=== PATIENT | female | born 1990 | race Caucasian/White ===

== ENCOUNTER 2025-06-04 16:41 | Observation (INO) | payer BC, SELFPAY ==
--- NOTE | ~2025-06-04 | CT_ITS ---
CLINICAL INDICATION: Left flank pain COMPARISON: None. TECHNIQUE: Multiple contiguous axial images of the abdomen and pelvis were performed without the admi nistration of intravenous contrast The dose-length product (DLP) was 191.17 mGy-cm. Automated exposure control and iterative reconstruction technique were employed. FINDINGS/OBSERVATIONS: Visualized lower thorax: The bilateral lung bases are clear. The heart is of normal size, without pericardial effusion. Small hiatal hernia is present. Liver: The liver demonstrates homogeneous attenuation and is not enlarged. Gallbladder and biliary system: The gallbladder is surgically absent. Pancreas: Limited evaluation of the pancreas secondary to the lack of intravenous contrast. Spleen: The spleen demonstrates homogeneous attenuation and is not enlarged. Kidneys: Multiple 2 and 3 mm nonobstructing calculi are present within the right kidney. The remainder of the right kidney and proximal ureter are unremarkable. Atrophy and significant hydronephrosis is present within the left kidney. Proximal hydroureter is noted secondary to an 8 mm calculus within the proximal left ureter. Bulky calcifications are identified within primarily the lower pole of the atrophic left kidney. Adrenal glands: Unremarkable. Gastrointestinal tract: Fecal stasis within the cecum and rectum Appendix: Surgically absent. Vasculature: Unremarkable. Lymph nodes: Limited evaluation without intravenous contrast. Pelvic structures: The bladder is decompressed, limiting its evaluation. The uterus is anteverted and anteflexed, and otherwise unremarkable. Body wall and musculoskeletal: No significant degenerative disease within the lower thoracic or lumbosacral spine. IMPRESSION: Left-sided hydroureteronephrosis secondary to an 8 mm calculus in the proximal left ureter. The left kidney is atrophic when compared to the right. Fecal stasis within the cecum and rectum. Reviewed, dictated and finalized at location A.
--- NOTE | ~2025-06-04 | XR_ITS ---
EXAMINATION: XR retrograde pyelo w/stent LT DATE: 06/05/2025 11:11 INDICATION: Renal stone TECHNIQUE: 4 fluoroscopic images of the abdomen and pelvis were obtained during procedure performed emmanuel Evans. Radiologist was not present for the imaging or procedure. The amount of fluoroscopy time u sed during this procedure was 0.2 minutes. Total DAP was 0.129 mGym^2. COMPARISON: CT dated 06/04/2025 FINDINGS: Again seen is a 6 mm stone in the proximal left ureter which projects over the left transverse proces s of L3. Subsequent images demonstrate retrograde contrast injection into the left ureter and renal c ollecting system. The stone is no longer visualized and has either been extracted cores obscured by t he contrast. Placement of a left intraureteral stent with loops formed at the left renal pelvis and i n the bladder. Phlebolith in the left hemipelvis. IMPRESSION: 1. Proximal left ureteral stone which is not seen on the final images and has either been extracted o r reflux into the contrast opacified left renal collecting system. See procedure note for further det ail. 2. Placement of a left intraureteral stent which is in expected position. Reviewed, dictated and finalized at location A. IMPRESSION: 1. Proximal left ureteral stone which is not seen on the final images and has e ither been extracted or reflux into the contrast opacified left renal collectin g system. See procedure note for further detail. 2. Placement of a left intraureteral stent which is in expected position.
[2025-06-04 17:04] VITALS: BP 114/67; PULSE 99; RESP 18; TEMP 37.5; O2SAT 97
[2025-06-04 17:12] LABS: BEDSIDEPREGUCG Negative (Negative)
--- NOTE | 2025-06-04 17:14 | ED.GENADULT ---
HPI - General Adult General Chief complaint: Back Pain/Injury Stated complaint: Left flank pain Time Seen by Provider: 06/04/25 17:01 History of Present Illness HPI narrative: 34-year-old female presents to the emergency department for evaluation for left flank pain. Patient describes left flank pain that worsened a few hours prior to arrival. Patient does have associated nausea vomiting. Patient denies any prior history of kidney stone. Patient denies any current abdominal pain. Patient declined any medications for pain control or for nausea control. Related Data Allergies Allergy/AdvReac Type Severity Reaction Status Date / Time No Known Allergies Allergy Verified 06/04/25 17:32 Review of Systems Review of Systems: All systems reviewed & are unremarkable except as noted in HPI and below Exam Narrative: APPEARANCE: Well appearing, no pain, no distress, well-nourished. HEAD: normocephalic, atraumatic. EYES: PERRLA/EOMI, conjunctivae clear. NOSE: Normal no drainage EARS:TMS clear with good light reflex. THROAT: Pharynx clear, no exudate. NECK: Supple. No adenopathy, no masses. RESPIRATORY: Airway patent, respirations nonlabored. Clear to auscultation bilaterally, no rales, rhonchi, wheezing. CARDIOVASCULAR: Regular rate and rhythm without murmurs rubs or gallops. ABDOMINAL: Left CVA tenderness to palpation with no suprapubic tenderness to palpation MUSCULOSKELETAL: Moves all extremities. Strength/ROM intact, No edema, No calf tenderness. NEURO: Alert. Cranial nerves II through XII intact. Good gait. Good coordination SKIN: Warm, dry. Normal Color Course Vital Signs Vital signs: Vital Signs Temperature 99.5 F 06/04/25 17:04 Pulse Rate 99 06/04/25 17:04 Respiratory Rate 18 06/04/25 17:04 Blood Pressure 114/67 06/04/25 17:04 Pulse Oximetry 97 06/04/25 17:04 Oxygen Delivery Room Air 06/04/25 17:04 Temperature 98.4 F 06/04/25 21:07 Pulse Rate 89 06/04/25 21:07 Respiratory Rate 16 06/04/25 21:07 Blood Pressure 115/69 06/04/25 21:07 Pulse Oximetry 95 06/04/25 21:07 Oxygen Delivery Room Air 06/04/25 17:04 Medical Decision Making [facility] Narrative Medical decision making narrative: 34-year-old female presenting to the emergency department for evaluation for left flank. Patient afebrile but does have a leukocytosis of 12.9 hemoglobin of 12.5. No acute abnormalities on her CMP with a creatinine of 1.08 with no known baseline. Urine is leukocyte esterase positive with high white blood cells and +2 bacteria, urine culture was ordered, patient was treated with 1 g of IV Rocephin in the emergency department. CT scan does show a 8 mm ureteral calculi in the proximal left ureter with an atrophic kidney on that side. Patient did require multiple doses of IV Dilaudid for pain control. Patient was initially reluctant to stay but ultimately did stay for pain control and additional IV antibiotics. Urology does anticipate stent placement in the morning. Patient will be made NPO at midnight. Case was discussed with the hospitalist. Differential Diagnosis Differential Diagnosis: Urinary tract infection, infected stone, ureteral calculi, gastritis, diverticulitis, ovarian cyst Vital Signs Vital Signs: Vital Signs Temperature 99.5 F 06/04/25 17:04 Pulse Rate 99 06/04/25 17:04 Respiratory Rate 18 06/04/25 17:04 Blood Pressure 114/67 06/04/25 17:04 Pulse Oximetry 97 06/04/25 17:04 Oxygen Delivery Room Air 06/04/25 17:04 Temperature 98.4 F 06/04/25 21:07 Pulse Rate 89 06/04/25 21:07 Respiratory Rate 16 06/04/25 21:07 Blood Pressure 115/69 06/04/25 21:07 Pulse Oximetry 95 06/04/25 21:07 Oxygen Delivery Room Air 06/04/25 17:04 Lab Data Lab results reviewed: Yes I reviewed the patient's lab results. 06/04/25 17:23 06/04/25 17:23 Labs: Lab Results 06/04/25 06/04/25 06/04/25 Range/Units 17:05 17:10 17:23 WBC 12.9 H (4.5-10.0) K/mm3 RBC 4.41 (4.2-5.4) M/mm3 Hgb 12.5 (12.0-15.0) g/dL Hct 39.8 (37.0-47.0) % MCV 90.2 (80-100) fl MCH 28.3 (26-34) pg MCHC 31.4 L (32-36) g/dl RDW 13.2 (11.5-14.5) % Plt Count 220 (150-375) k/mm3 MPV 8.6 (7.4-10.4) fl Immature Gran % (Auto) Not Reportable Neut % (Auto) Not Reportable Lymph % (Auto) Not Reportable [place] % (Auto) Not Reportable Eos % (Auto) Not Reportable Baso % (Auto) Not Reportable Lymph # (Auto) Not Reportable [place] # (Auto) Not Reportable Eos # (Auto) Not Reportable Baso # (Auto) Not Reportable Abs Immat Gran (auto) Not Reportable Absolute Neuts (auto) Not Reportable Absolute Nucleated RBC Not Reportable Total Counted 100 Neutrophils % (Manual) 80 H (46-73) % Band Neutrophils % 9 H (0-6) % Lymphocytes % (Manual) 6.0 L (18-44) % Monocytes % (Manual) 4 (3-9) % Eosinophils % (Manual) 1 (0-4) % Nucleated RBC % Not Reportable Abs Neuts (Manual) 11.48 H (1.3-6.7) K/mm3 Abs Lymphs (Manual) 0.77 L (1.1-4.5) K/mm3 Abs Monocytes (Manual) 0.51 (0.1-0.90) K/mm3 Absolute Eos (Manual) 0.12 (0.02-0.50) K/mm3 Platelet Estimate Adequate (Adequate) Hypochromasia 1+ Schistocytes None seen Sodium 137 (137-145) mmol/L Potassium 3.9 (3.4-5.0) mmol/L Chloride 102 (98-107) mmol/L Carbon Dioxide 26 (22-30) mmol/L Anion Gap 9 (4-12) mmol/L BUN 14 (7-17) mg/dL Creatinine 1.08 H (0.7-1.0) mg/dL Estim Creat Clear Calc 59 ml/min Estimated GFR 59 (59 - ) Glucose 104 (65-110) mg/dL Calcium 9.3 (8.4-10.2) mg/dL Total Bilirubin 1.2 (0.2-1.3) mg/dL AST 39 H (14-36) U/L ALT 62 H (6-35) U/L Alkaline Phosphatase 62 (38-126) U/L Total Protein 7.5 (6.3-8.2) g/dL Albumin 4.2 (3.5-5.1) g/dL Urine Color Dark yellow (Yellow) Urine Appearance Clear (Clear) Urine pH 6.5 (5.0-9.0) Ur Specific [place] 1.037 H (1.001-1.035) Urine Protein 1+ H (Negative) mg/dL Urine Glucose (UA) Negative (Negative) mg/dL Urine Ketones Trace H (Negative) mg/dL Ur Blood (Man) Negative (Negative) Urine Nitrate Negative (Negative) Urine Bilirubin Negative (Negative) Urine Urobilinogen 1.0 (<2.0) mg/dL Leukocyte Esterase Rfl 2+ H (Negative) LYRIC/UL Urine RBC 0-2 (0-2) /hpf Urine WBC 21-50 H (0-3) /hpf Ur Squamous Epith Cells Moderate (Few) /hpf Urine Bacteria 2+ H /hpf Urine Casts 0-2 POC Urine HCG, Qual Negative (Negative) Imaging Data Radiologist's impression: Impressions Abdomen/Pelvis CT 06/04/25 19:14 IMPRESSION: Left-sided hydroureteronephrosis secondary to an 8 mm calculus in the proximal left ureter. The left kidney is atrophic when compared to the right. Fecal stasis within the cecum and rectum. Discharge Plan Discharge Clinical Impression: Calculus, ureteral, Abnormal urinalysis Patient Disposition: Still a Patient Condition: Stable
[2025-06-04 17:15] LABS: Add Urine Microscopic? YES; Appearance Urine Clear (Clear); Glucose Urine UA Negative (Negative); Leukocyte Esterase Ur 2+ LEU/UL (Negative); Nitrate Urine Negative (Negative); Non Pathogenic Casts 0-2; Specific Grav Ur 1.037 (1.001-1.035)
[2025-06-04 17:22] VITALS: BP 102/60; PULSE 96; RESP 18; O2SAT 99
[2025-06-04 17:30] LABS: Hematocrit 39.8 % (37.0-47.0); Hemoglobin 12.5 g/dL (12.0-15.0); Mean Corpuscular HGB Conc 31.4 g/dl (32-36); Mean Corpuscular Hemoglobin 28.3 pg (26-34); Mean Corpuscular Volume 90.2 fl (80-100); Platelet Count Result 220 k/mm3 (150-375); Red Blood Count 4.41 M/mm3 (4.2-5.4); White Blood Count 12.9 K/mm3 (4.5-10.0)
[2025-06-04] MEDS: cefTRIAXone 1 GM in SODIUM CHLORIDE 0.9% IV 50 ML 100 ML IVPB (17:36)
[2025-06-04] MEDS: ONDANSETRON INJ 4 MG/2 ML VIAL IV PUSH (17:36)
[2025-06-04] MEDS: HYDROmorphone HCL INJ (*CRX) 2 MG/ML VIAL 0.5 MG IV PUSH ×3 (17:37→22:56)
[2025-06-04 17:40] LABS: Alanine Aminotransferase 62 U/L (6-35); Albumin Level 4.2 g/dL (3.5-5.1); Alkaline Phosphatase 62 U/L (38-126); Anion Gap 9 mmol/L (4-12); Aspartate Amino Transferase 39 U/L (14-36); Bilirubin,Total 1.2 mg/dL (0.2-1.3); Blood Urea Nitrogen 14 mg/dL (7-17); Calcium 9.3 mg/dL (8.4-10.2); Carbon Dioxide 26 mmol/L (22-30); Chloride 102 mmol/L (98-107); Estimated CRCL calculation 59 ml/min; Estimated Glomerular Filt Rate 59; Glucose 104 mg/dL (65-110); Potassium 3.9 mmol/L (3.4-5.0); Sodium 137 mmol/L (137-145); Total Protein 7.5 g/dL (6.3-8.2)
[2025-06-04 18:13] LABS: Band Neutrophils Percent 9 % (0-6); Eosinophils Absolute Manual 0.12 K/mm3 (0.02-0.50); Eosinophils Percent Manual 1 % (0-4); Lymphocytes Absolute Manual 0.77 K/mm3 (1.1-4.5); Lymphocytes Percent Manual 6.0 % (18-44); Monocytes Absolute Manual 0.51 K/mm3 (0.1-0.90); Monocytes Percent Manual 4 % (3-9); Neutrophils Absolute Manual 11.48 K/mm3 (1.3-6.7); Neutrophils Percent Manual 80 % (46-73); Schistocytes None Seen; Total Cells Counted 100
[2025-06-04 18:14] LABS: Hypochromasia 1+
[2025-06-04 18:15] VITALS: BP 104/62; PULSE 91; RESP 16; O2SAT 98
[2025-06-04] MEDS: LACTATED RINGERS 1,000 ML 125 ML IV CONT (20:14)
--- OUTSIDE RECORDS SUMMARY | 2025-06-04 20:29 | XMS_ITS | Encounter Summary ---
Author Organization [facility] work Address [address] [place] [address] Care Team Providers Care Marketing Community Liaison Name Role Phone Ernestine Salazar NP Primary Care Provider [phone] Encounter Details Date Type Department Care Team ([facility] st Contact Info) Description 03/07/2020 Telephone Outpatient [facility] [address] [facility] [place] [facility] [place] [address] Kodi Kaur [facility] [address] [place] [address] Social History Tobacco Use Types Packs/Day Years Used Date Smoking Tobacco: Never Smokeless Tobacco: Never Alcohol Use Standard Drinks/Week Comments No 0 (1 standard drink = 0.6 oz pur e alcohol) Comments No Sex and Gender Information Value Date Recorded Sex Assigned at Female 09/30/2020 8:29 AM EST Legal Sex Female 3:18 AM EDT Gender Identity Female 09/30/2020 8:29 AM EST Sexual Orientation Not on file COVID-19 Exposure Response Date Recorded In the last month, have you been in contact with someone who was confirmed or suspected to have Coronavirus / COVID-19? No / Unsure 03/01/2020 2:41 PM EDT documented as of this encounter Plan of Treatment Not on file documented as of this encounter Visit Diagnoses Not on filedocumented in this encounter Care Teams Marketing Community Liaison Relationship Specialty Start Date End Date Ernestine Salazar NP [address] [facility], [place] [id number] PCP - General Nurse Practitioner 07/16/18 documented as of this encounter
--- OUTSIDE RECORDS SUMMARY | 2025-06-04 20:29 | XMS_ITS | Encounter Summary ---
Author Organization [facility] work Address [address] [place] [address] Care Team Providers Care Potato Loader Name Role Phone Ernestine Salazar INDUSTRIAL HEALTH ENGINEER Primary Care Provider [phone] Reason for Visit * Reason Comments Medication Refill Encounter Details Date Type Department Care Team ([facility] st Contact Info) Description 04/07/2020 Refill Outpatient [facility] [address] [place] [address] Stephanie Jalloh, [facility] [address] [facility] [place] [address] Medication Refill Social History Tobacco Use Types Packs/Day Years [...] have Coronavirus / COVID-19? No / Unsure 03/23/2020 1:39 PM EDT documented as of this encounter Plan of Treatment Not on file documented as of this encounter Visit Diagnoses Diagnosis FRANCISCO JAVIER (generalized anxiety disorder) Generalized anxiety disorder documented in this encounter Care Teams Potato Loader Relationship Specialty Start Date End Date Ernestine Salazar NP [address] [place] [address] PCP - General Nurse Practitioner 07/16/18 documented as of this encounter
--- OUTSIDE RECORDS SUMMARY | 2025-06-04 20:29 | XMS_ITS | Encounter Summary ---
Author Organization [facility] work Address [address] [place] [address] Care Team Providers Care Line Patroller Name Role Phone Ernestine Salazar NP Primary Care Provider [phone] Reason for Visit * Reason Comments Medication Refill Encounter Details Date Type Department Care Team ([facility] st Contact Info) Description 2020 Refill Outpatient [facility] [address] [place] [address] Stephanie Jalloh, [facility] [address] [place] [address] Medication Refill Social History Tobacco Use Types Packs/Day Years Used Date Smoking Tobacco: Former Cigarettes 0.5 1 1 10/2018 - 08/2020 Smokeless Tobacco: Never Alcohol Use Standard Drinks/Week Comments Not Currently 0 (1 standard drink = 0.6 oz [...] have Coronavirus / COVID-19? No / Unsure 10/17/2020 11:41 AM EST documented as of this encounter Plan of Treatment Not on file documented as of this encounter Visit Diagnoses Diagnosis Insomnia, unspecified type documented in this encounter Care Teams Line Patroller Relationship Specialty Start Date End Date Ernestine Salazar NP [address] [place] [address] PCP - General Nurse Practitioner 07/16/18 documented as of this encounter
--- OUTSIDE RECORDS SUMMARY | 2025-06-04 20:29 | XMS_ITS | Encounter Summary ---
Author Organization [facility] work Address [address] [place] [address] Care Team Providers Care Product Picker Name Role Phone Ernestine Salazar NP Primary Care Provider Encounter Details Date Type Department Care Team ([facility] st Contact Info) Description 03/01/2020 Telephone Outpatient [facility] [address] [place] [address] Stephanie Jalloh, [facility] [address] [place] [id number] Social History Tobacco Use Types Packs/Day Years [...] on filedocumented in this encounter Care Teams Product Picker Relationship Specialty Start Date End Date Ernestine Salazar NP [address] [facility] [place] [id number] PCP - General Nurse Practitioner 07/16/18 documented as of this encounter
--- OUTSIDE RECORDS SUMMARY | 2025-06-04 20:29 | XMS_ITS | Patient Health Record ---
Author Organization [facility] Address [address] [place] [address] Care Team Providers Care University Lecturer Name Role Phone Yves Abbasi Unavailable [phone] Reason For Referral No Information Social History Social History Sexual History: Social Info Question Answer Notes Sexual History Had sex in the past 12 months (vaginal, oral, or anal)? Yes Drugs/Alcohol: Social Info Question Answer Notes Drugs Have you used drugs other than those for medical reasons in the past 12 months? No Alcohol Screen Did you have a drink containing alcohol in the past year? Yes Points 0 Interpretation Negative Tobacco Use: Social Info Question Answer Notes Tobacco Use/Smoking Are you a former smoker Tobacco use other than smoking: Are you an other tobac co user? No Plan Of Treatment No Information
--- OUTSIDE RECORDS SUMMARY | 2025-06-04 20:29 | XMS_ITS | Encounter Summary ---
Author Organization [facility] work Address [address] [place] [address] Care Team Providers Care Test Pilot Name Role Phone Ernestine Salazar REFERENCE INVESTIGATOR Primary Care Provider [phone] Encounter Details Date Type Department Care Team (Late st Contact Info) Description 08/29/2018 Orders Only [facility] [address] [place] [phone] Referral, Self No Address on File Encounter for employment-related drug testing (Primary Dx) Social History Tobacco Use Types Packs/Day Years [...] AM EST Sexual Orientation Not on file documented as of this encounter Plan of Treatment Not on file documented as of this encounter Results * UDP 5 eScreen (08/29/2018 12:50 PM EDT) UDP 5 eScreen Complete 08/29/2018 8:03 PM EDT [facility] Urine specimen (specimen) 08/29/2018 12:50 PM EDT 08/29/2018 6:51 PM EDT us Self Referral URINE ORDERABLES Final Result [facility] [address] [place], [place] [address] [phone] documented in this encounter Visit Diagnoses Diagnosis Encounter for employment-related drug testing- Primary documented in this encounter Care Teams Test Pilot Relationship Specialty Start Date End Date Ernestine Salazar NP [address] [place] [address] PCP - General Nurse Practitioner 07/16/18 documented as of this encounter
--- OUTSIDE RECORDS SUMMARY | 2025-06-04 20:29 | XMS_ITS | Encounter Summary ---
Author Organization [facility] work Address [address] [facility] [place] [address] Care Team Providers Care Engagement Quality Consultant Name Role Phone Ernestine Salazar OCEAN FORWARDER Primary Care Provider [phone] Reason for Visit * Reason Comments Medication Refill Encounter Details Date Type Department Care Team ([facility] st Contact Info) Description 12/13/2020 Refill Outpatient [facility] [place] [address] [place] [address] Stephanie Jalloh, [facility] [address] [place] [address] Medication Refill Social History [...] have Coronavirus / COVID-19? No / Unsure 12/09/2020 5:01 PM EST documented as of this encounter Plan of Treatment Not on file documented as of this encounter Visit Diagnoses Diagnosis MDD (major depressive disorder), recurrent severe, without psychosis (HCC) FRANCISCO JAVIER (generalized anxiety disorder) Generalized anxiety disorder Mixed obsessional thoughts and acts documented in this encounter Care Teams Engagement Quality Consultant Relationship Specialty Start Date End Date Ernestine Salazar NP [address] [place] [address] PCP - General Nurse Practitioner 07/16/18 documented as of this encounter
--- OUTSIDE RECORDS SUMMARY | 2025-06-04 20:29 | XMS_ITS | Encounter Summary ---
Author Organization [facility] work Address [address] [place] [address] Care Team Providers Care Repair Weaver Name Role Phone Ernestine Salazar ACTIVITY THERAPY TEACHER Primary Care Provider [phone] Reason for Visit * Reason Comments Medication Refill Encounter Details Date Type Department Care Team (Late st Contact Info) Description 11/19/2020 Refill Outpatient [facility] [place] [address] [place] [address] Stephanie Jalloh, [facility] [address] [facility] [phone] Medication Refill Social History Tobacco Use Types [...] type documented in this encounter Care Teams Repair Weaver Relationship Specialty Start Date End Date Ernestine Salazar NP [address] [facility] [place] [address] PCP - General Nurse Practitioner 07/16/18 documented as of this encounter
--- OUTSIDE RECORDS SUMMARY | 2025-06-04 20:29 | XMS_ITS | Clinical Summary ---
Author Organization [facility] Address [address] [place] [address] Care Team Providers Care Rotor Coil Taper Name Role Phone Maggie Simmons Primary Care Provider [phone] Source Comments PLEASE NOTE, if this patient is a minor, it may be UNLAWFUL to discuss sensitive information that is contained in these records (such as FAMILY PLANNING, MENTAL HEALTH or SUBSTANCE ABUSE) with the minor patient's parent or other person without the patient's specific authorization.[facility] Allergies No known active allergies Medications clonazePAM (KLONOPIN) 0.5 mg tablet Take 0.5 mg by mouth 2 (two) times daily 12/15/2018 Active traZODone (DESYREL) 100 mg tablet Take 100 mg by mouth nightly at bedtime 11/18/2018 Active Active Problems Problem Noted Date Diagnosed Date Generalized anxiety disorder 07/09/2018 Severe recurrent major depre ssion without psychotic features (CMS & HHS-HCC) 07/09/2018 Family History Medical History Relation Name Comments ADD / ADHD Brother Anxiety disorder Brother Depression Brother Anxiety disorder Father Arthritis Father Depression Father Heart failure Father Psoriasis Father Anxiety disorder Mother Cancer Mother Depression Mother Drug Abuse Mother OCD Mother Anxiety disorder Sister Asthma Sister Depression Sister Psoriasis Sister Anxiety disorder Son Relation Name Status Comments Brother Father Mother Sister Son Social History Tobacco Use Types Packs/Day Years Used Date Smoking Tobacco: Former Cigarettes 0.5 4 0 05/25/2011 - 06/09/2015 Smokeless Tobacco: Never Tobacco Cessation:Counseling Given: No Alcohol Use Standard Drinks/Week Comments No 0 (1 standard drink = 0.6 oz pur e alcohol) Social Connections Answer Date Recorded Social Connections and Isolation 0 06/22/2019 Financial Resource Strain Answer Date R ecorded Financial Resource Strain 0 2018 Stress Answer Date Recorded Stress 0 06/22/2019 Physical Activity Answer Date Recorded Physical Activity 0 06/22/2019 Food Insecurity Answer Date Recorded Food 0 06/22/2019 Transportation Needs Answer Date Record ed Transportation 0 06/22/2019 Housing Stability Answer Date Recorded Housing 0 06/22/2019 Safety and Environment Answer Date Damon rded Safety 0 06/22/2019 Utilities Answer Date Recorded Utilities 0 06/22/2019 Employment Answer Date Recorded Employment 0 06/22/2019 Comments No Sex and Gender Information Value Date Recorded Sex Assigned at Female 07/08/2018 1:06 PM PDT Legal Sex Female 10:36 AM PDT Gender Identity Female 07/08/2018 12:44 PM PDT Sexual Orientation Straight 07/08/2018 12 :44 PM PDT Last Filed Vital Signs Vital Sign Reading Time Taken Comments Blood Pressure 116/72 01/09/2019 3:26 PM EDT Pulse 94 01/09/2019 3:26 PM EDT Temperature 36.8 C (98.3 F) 01/09/2019 3:26 PM EDT Respiratory Rate 14 01/09/2019 3:26 PM EDT Oxygen Saturation 97% 01/09/2019 3:26 PM EDT Inhaled Oxygen Concentration - - Weight 90.3 kg (199 lb) 01/09/2019 3:26 PM EDT Height 157.5 cm (5' 2) 01/09/2019 3:26 PM EDT Body Mass Index 36.4 01/09/2019 3:26 PM EDT Plan of Treatment Not on file Insurance [employer] Care Teams Rotor Coil Taper Relationship Specialty Start Date End Date Maggie Simmons PCP - General Family Medicine, Physician 02/10/20
--- OUTSIDE RECORDS SUMMARY | 2025-06-04 20:29 | XMS_ITS | Encounter Summary ---
Author Organization [facility] work Address [address] [facility] [place] [address] Care Team Providers Care Senior Lead Developer Name Role Phone Ernestine Salazar NP Primary Care Provider [phone] Reason for Visit * Reason Comments Medication Refill Encounter Details Date Type Department Care Team ([facility] Contact Info) Description 05/31/2020 Refill Outpatient [facility] [address] [place] [address] Stephanie Jalloh, [facility] [address] [place] [address] Medication Refill Social History [...] have Coronavirus / COVID-19? No / Unsure 05/25/2020 11:02 AM EDT documented as of this encounter Plan of Treatment Not on file documented as of this encounter Visit Diagnoses Diagnosis Insomnia, unspecified type documented in this encounter Care Teams Senior Lead Developer Relationship Specialty Start Date End Date Ernestine Salazar NP [address] [place] [facility] [address] PCP - General Nurse Practitioner 07/16/18 documented as of this encounter
--- OUTSIDE RECORDS SUMMARY | 2025-06-04 20:29 | XMS_ITS | Encounter Summary ---
Author Organization [facility] work Address [address] [place] [address] Care Team Providers Care Die Tripper Name Role Phone Ernestine Salazar NP Primary Care Provider [phone] Reason for Visit * Reason Comments Medication Refill Encounter Details Date Type Department Care Team ([facility] st Contact Info) Description 07/02/2020 Refill Outpatient [facility] [address] [place] [address] Stephanie Jalloh, [facility] [address] [facility] [place] [address] Medication Refill Social History [...] have Coronavirus / COVID-19? No / Unsure 06/15/2020 1:31 PM EDT documented as of this encounter Plan of Treatment Not on file documented as of this encounter Visit Diagnoses Diagnosis Insomnia, unspecified type documented in this encounter Care Teams Die Tripper Relationship Specialty Start Date End Date Ernestine Salazar NP [address] [place] [facility] [place] [address] PCP - General Nurse Practitioner 07/16/18 documented as of this encounter
--- OUTSIDE RECORDS SUMMARY | 2025-06-04 20:29 | XMS_ITS | Patient Health Record ---
Author Organization [facility] Address [address] [place] [address] Support Name Relationship Address Phone Arabella Tristan Guarantor Unknown [phone] Reason For Referral No Information Problems Problem Type SNOMED Code ICD Code Onset Dates Problem Status W/U Status Risk Notes Problem Low back pain (138043593) Low back pain (M545) 01/17/2018 Active confirmed Problem Viral wart, unspecified (B079) 04/18/2017 Active confirmed Problem Migraine w/o aura, not intractable, w/o status migrainosus (G71719) 01/17/2018 Active confirmed Problem Obesity (934839259) Obesity, unspecified (E669) 01/17/2018 Active confirmed Plan Of Treatment No Information
--- OUTSIDE RECORDS SUMMARY | 2025-06-04 20:29 | XMS_ITS | Clinical Summary ---
Author Organization [email or web address] work Address [address] [place] [address] Care Team Providers Care In Processing Instructor Name Role Phone Daviesesnoel Spivey BABY COUNSELOR Primary Care Provider [phone] Allergies No known active allergies Medications * This document contains information received from the source organization and may not represent a complete record from that organization. desvenlafaxine succinate (PRISTIQ) 25 mg 24 hr tabletIndications:M DD (major depressive disorder), recurrent severe, without psychosis (HCC),FRANCISCO JAVIER (generalized anxiety disorder),Mixed obsessional thoughts and acts Take ONE tablet (25 mg total) by mouth daily. 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 30 tablet 2 1 Active ondansetron (ZOFRAN ODT) 4 MG disintegrating tablet Take ONE tablet (4 mg total) by mouth every 6 (six) hours as needed for Nausea or Vomiting. 60 tablet 3 1 Active olsujfn-pvmm-gsxhb acid 27 mg iron- 0.8 mg tablet Take ONE tablet by mouth daily. 90 tablet 3 1 Active Active Problems Patient Care Coordination No te Formatting of this note migh t be different from the original. 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 Insomnia 01/30/2018 Symptomatic cholelithiasis 01/30/2018 Overview (01/30/2018): Added automatically from request for surgery [id number] Vaginal discharge Hyperemesis affecting , antepartum Family History Medical History Relation Comments No Known Problems Brother 1 No Known Problems Brother 2 No Known Problems Brother 3 No Known Problems Brother 4 Anxiety disorder Brother 5 Depression Brother 5 Cirrhosis Father Heart attack Father Hypertension Father Pancreatitis Father Cancer - See comment Mother Cervical Ca ncer No Known Problems Sister 1 No Known Problems Sister 2 No Known Problems Sister 3 No Known Problems Sister 4 Other Sister 5 Brain Tumor Scoliosis Sister 5 No Known Problems Son Relation Status Comments Brother 1 Alive Brother 2 Alive Brother 3 Alive Brother 4 Alive Brother 5 Alive Father Mother cervical Sister 1 Alive Sister 2 Alive Sister 3 Alive Sister 4 Alive Sister 5 Alive Son Alive Social History Tobacco Use Types Packs/Day Years [...] AM EST Sexual Orientation Not on file Last Filed Vital Signs Vital Sign Reading Time Taken Comments Blood Pressure 98/70 02/08/2021 4:18 PM EDT Pulse 82 02/08/2021 4:18 PM EDT Temperature 36.8 C (98.3 F) 02/02/2021 11:19 PM EDT Respiratory Rate 16 02/03/2021 12:59 AM EDT Oxygen Saturation 97% 02/03/2021 12:59 AM EDT Inhaled Oxygen Concentration - - Weight 65.4 kg (144 lb 3.2 oz) 02/08/2021 4:18 P M EDT Height 157.5 cm (5' 2) 10/17/2020 12:10 PM EST Body Mass Index 26.37 10/17/2020 12:10 PM EST Plan of Treatment Health Maintenance Due Date Last Done Comments Annual Physical Exam 1992 SDOH 1992 Hepatitis B Vaccines (Adult) (1 of 3 - 19+ 3-dose series) 2011 Pap Smear 03/15/2023 03/15/2020, 03/05/2017 COVID-19 Vaccine ( - 2023-2 5 season) 2024 Annual Adult Depression Screen 10/28/2024 Cervical Cancer Screening 03/15/2025 HPV 03/15/2025 03/15/2020 Pap and HPV (cotest) 03/15/2025 03/15/2020 Influenza Vaccine (#1) 2025 Tetanus/Pertussis Adult Vaccine (One-time Booster) Completed 12/09/2015 Hepatitis C Screening Completed 02/08/2021 HPV Vaccines Aged Out No longer eligi ble based on patient's age to complete this topic Meningococcal Vaccine (MCV4) Aged Out No longer eligible based on patient's age to complete this topic Pneumococcal Vaccine: 19-49 Years (Increased Risk) Aged Out No longer eligibl e based on patient's age to complete this topic Goals Goal Patient Goal Type Associated Problems Recent Progress Patient-Stated? Author healthy baby Lifestyle Yes Aurora Malik, RN Note: Priority: high Barriers to patient reaching goal: None at this time Action taken by care giver: Enrolled in navigation program Procedures Procedure Name Priority Date/Time Associated Diagnosis Comments HEPATITIS C AB W/REFLEX Routine 02/08/2021 4:50 PM EDT Supervision of other normal HM PAP SMEAR Routine 03/15/2020 HM HPV Routine 03/15/2020 from Last 3 Months or Most Recently Relevant to Health Maintenance Results * Hepatitis C Antibody with Reflex (02/08/2021 4:50 PM EDT) Hepatitis C Ab Non Reactive Non Reactive 02/08/2021 9:29 PM EDT [facility] Comment: For Equivocal results - please submit another order and sample for testing in 14 days. Blood specimen (specimen) 02/08/2021 4:50 PM EDT 02/08/2021 8:24 PM EDT Alicia Funk NP LAB BLOOD ORDERABLES Fi nal Result [facility] [address], [place] [address] [phone] * HPV (03/15/2020) HM HPV Negative Historical Provider HEALTH MAINTENANCE Final Result * PAP SMEAR (03/15/2020) Pap smear Negative Historical Provider HEALTH MAINTENANCE Final Result from Last 3 Months or Most Recently Relevant to Health Maintenance Insurance [facility] Address: [address] [address] Care Teams In Processing Instructor Relationship Specialty Start Date End Date Ernestine Salazar NP [address] [place] [address] PCP - General Nurse Practitioner 07/16/18
--- NOTE | 2025-06-04 20:40 | PM.IMHP ---
H&P: HPI History of Present Illness Date/Time: 06/04/25 20:40 Chief Complaint: Left flank pain, Ureteral stone and suspected UTI Narrative: This is a 34 year old female patient admitted to the hospital due to severe left flank pain with findings of obstructing left ureteral stone with UA concerning for UTI. Pain was difficult to control in ER. CT shows atrophic left kidney indicating likely longer-term obstruction. Urology was consulted and patient will be NPO overnight for likely stent placement tomorrow. Patient initially did not seem agreeable to admission but later agreed for ER provider. Patient reports prior appendectomy, cholecystectomy and C-sections, denies any current prescription medications or major medical problems. This is her first time dealing with kidney stones. Pain, fever and urinary frequency started in the morning of 06/04. Review of Systems Review of Systems: All systems reviewed & are unremarkable except as noted in HPI and below PMFSH Family History Family History Mother Cervical cancer Social History Social History Smoking status: Current every day smoker Tobacco type: e-cigarettes/vaping Alcohol intake: current Drinks per week: 1 Substance use: never Lack of Transportation: No Lack of Food: Never True Current Housing: I Have Housing Concerned About Future Housing: No Difficulty Paying Gas/Electric Bills: No Difficulty Paying for Meds: No Currently Unemployed: No Education: High School Diploma/GED Difficulty w/ Childcare or Family Care: No Spiritual care concerns: No Meds Home Medications and Allergies Home Medications ?Medication ?Instructions ?Recorded ?Confirmed ?Type amoxicillin 875 mg-potassium 1 tablet PO Q12H 06/04/25 06/04/25 History clavulanate 125 mg tablet fluticasone propionate 50 1 spray intranasal DAILY 06/04/25 06/04/25 History mcg/actuation nasal spray,suspension metronidazole 500 mg tablet 500 mg PO Q12H 06/04/25 06/04/25 History nitrofurantoin 100 mg PO DAILY 06/04/25 06/04/25 History monohydrate/macrocrystals 100 mg capsule topiramate 50 mg tablet 50 mg PO DAILY 06/04/25 06/04/25 History Allergies Allergy/AdvReac Type Severity Reaction Status Date / Time No Known Allergies Allergy Verified 06/04/25 23:34 Vital Signs Vital Signs - 24 hr 06/04/25 17:04 06/04/25 17:22 06/04/25 18:15 Temperature 37.5 C Pulse Rate 99 96 91 Respiratory Rate 18 18 16 Blood Pressure 114/67 102/60 104/62 Pulse Oximetry 97 99 98 Oxygen Delivery Room Air Exam Narrative: APPEARANCE: Uncomfortable appearing, no acute respiratory distress HEENT: normocephalic, atraumatic, PERRL, EOMI NECK: Supple. No adenopathy, no masses. RESPIRATORY: Airway patent, respirations nonlabored. Clear to auscultation bilaterally CARDIOVASCULAR: Regular rate and rhythm and normal peripheral pulses ABDOMINAL: Left CVA tenderness to palpation with no suprapubic tenderness to palpation MUSCULOSKELETAL: Moves all extremities. Strength/ROM intact, No edema, No calf tenderness. NEURO: Alert and oriented, no focal deficits noted SKIN: Warm, dry. Normal Color H&P: Results Labs Labs: Short CBC 06/04/25 Range/Units 17:23 WBC 12.9 H (4.5-10.0) K/mm3 Hgb 12.5 (12.0-15.0) g/dL Hct 39.8 (37.0-47.0) % Plt Count 220 (150-375) k/mm3 BMP 06/04/25 17:23 Sodium 137 Potassium 3.9 Chloride 102 Carbon Dioxide 26 BUN 14 Creatinine 1.08 H Glucose 104 Calcium 9.3 Liver Function 06/04/25 Range/Units 17:23 Total Bilirubin 1.2 (0.2-1.3) mg/dL AST 39 H (14-36) U/L ALT 62 H (6-35) U/L Alkaline Phosphatase 62 (38-126) U/L Albumin 4.2 (3.5-5.1) g/dL Urine 06/04/25 Range/Units 17:05 Urine Color Dark yellow (Yellow) Urine Appearance Clear (Clear) Urine pH 6.5 (5.0-9.0) Ur Specific [place] 1.037 H (1.001-1.035) Urine Protein 1+ H (Negative) mg/dL Urine Glucose (UA) Negative (Negative) mg/dL Pulse Oximetry SpO2 results: 97-99% on room air Attestation: I personally reviewed and interpreted this pulse oximetry as follows: Interpretation: No need for supplemental oxygenation at this time Imaging CT scan - abdomen: Radiologist's impression: CLINICAL INDICATION: Left flank pain COMPARISON: None. TECHNIQUE: Multiple contiguous axial images of the abdomen and pelvis were performed without the administration of intravenous contrast The dose-length product (DLP) was 191.17 mGy-cm. Automated exposure control and iterative reconstruction technique were employed. FINDINGS/OBSERVATIONS: Visualized lower thorax: The bilateral lung bases are clear. The heart is of normal size, without pericardial effusion. Small hiatal hernia is present. Liver: The liver demonstrates homogeneous attenuation and is not enlarged. Gallbladder and biliary system: The gallbladder is surgically absent. Pancreas: Limited evaluation of the pancreas secondary to the lack of intravenous contrast. Spleen: The spleen demonstrates homogeneous attenuation and is not enlarged. Kidneys: Multiple 2 and 3 mm nonobstructing calculi are present within the right kidney. The remainder of the right kidney and proximal ureter are unremarkable. Atrophy and significant hydronephrosis is present within the left kidney. Proximal hydroureter is noted secondary to an 8 mm calculus within the proximal left ureter. Bulky calcifications are identified within primarily the lower pole of the atrophic left kidney. Adrenal glands: Unremarkable. Gastrointestinal tract: Fecal stasis within the cecum and rectum Appendix: Surgically absent. Vasculature: Unremarkable. Lymph nodes: Limited evaluation without intravenous contrast. Pelvic structures: The bladder is decompressed, limiting its evaluation. The uterus is anteverted and anteflexed, and otherwise unremarkable. Body wall and musculoskeletal: No significant degenerative disease within the lower thoracic or lumbosacral spine. IMPRESSION: Left-sided hydroureteronephrosis secondary to an 8 mm calculus in the proximal left ureter. The left kidney is atrophic when compared to the right. Fecal stasis within the cecum and rectum. Reviewed, dictated and finalized at location A. Assessment and Plan Assessment and plan (1) Calculus, ureteral: Code(s): N20.1 - Calculus of ureter Status: Acute Assessment and Plan: -Left proximal ureteral obstruction with 8 mm stone and hydronephrosis with UA suggestive of developing UTI -Pain control an issue in ER -Avoid ketorolac at this time per Urology preferences -Urology consulted, probable stent placement on 06/05 -NPO after midnight -Serum Cr 1.08 with Cr clearance noted at 59, no prior labs on file -IV fluids infusing and PRN pain/nausea medication available (2) Abnormal urinalysis: Code(s): R82.90 - Unspecified abnormal findings in urine Status: Acute Assessment and Plan: -WBC 12.9 -UA with 2+ urine bacteria, 2+ leukocyte esterase and WBCs though there is squamous cell contamination -Obstructed left ureter with flank pain -Rocephin started in ER, will plan to continue -No prior labs or cultures on file, urine culture ordered -Fever and urinary frequency started in the morning on day of admission Quality If No VTE Prophylaxis Answer both mechanical and pharmacologic: Reason no mechanical VTE proph: low risk/not indicated Reason no pharmacologic proph: low risk/not indicated and medical contraindication (Ureteral stent planned on 06/05) Hospitalist MIPS Advance Care Plan I have confirmed that the patient's Advanced Care Plan is present, code status is documented, or surrogate decision maker is listed in patient medical record.: Yes Medication Reconciliation I have utilized all available resources to obtain, update and review the patients current medications (includes all prescriptions, OTC, herbals, cannabis, and nutritional supplements).: Yes
[2025-06-04 20:45] VITALS: BP 94/72; PULSE 91; RESP 18; TEMP 36.2; O2SAT 98
[2025-06-04 20:54] VITALS: BMI 26.5
[2025-06-04 21:07] VITALS: BP 115/69; PULSE 89; RESP 16; TEMP 36.9; O2SAT 95
[2025-06-05] VITALS (12 sets, daily range): BP systolic 83–120; BP diastolic 49–72; PULSE 52–105; RESP 7–20; TEMP 36.2–38.1; O2SAT 97–100
[2025-06-05] MEDS: HYDROmorphone HCL INJ (*CRX) 2 MG/ML VIAL 1 MG IV PUSH ×2 (02:50→08:41)
[2025-06-05] MEDS: LACTATED RINGERS 1,000 ML 125 ML IV CONT ×3 (04:41→13:00)
[2025-06-05] MEDS: ACETAMINOPHEN 325 MG TABLET 650 MG PO ×2 (04:42→23:51)
[2025-06-05] MEDS: MORPHINE SULFATE (*CRX) 4 MG/ML INJ IV PUSH (04:59)
[2025-06-05 05:59] LABS: Hematocrit 36.2 % (37.0-47.0); Hemoglobin 11.6 g/dL (12.0-15.0); Immature Granulocyte Percent A 0.5 % (0-0.5); Lymphocytes Absolute Auto 1.19 K/mm3 (0.9-3.2); Mean Corpuscular HGB Conc 32.0 g/dl (32-36); Mean Corpuscular Hemoglobin 28.8 pg (26-34); Mean Corpuscular Volume 89.8 fl (80-100); Nucleated Red Blood Cells Absolute Auto 0.000 K/mm3 (0.0-0.012); Nucleated Red Blood Cells Perc 0.0 % (0.0-0.2); Platelet Count Result 187 k/mm3 (150-375); Red Blood Count 4.03 M/mm3 (4.2-5.4); White Blood Count 13.5 K/mm3 (4.5-10.0)
[2025-06-05 06:30] LABS: Alanine Aminotransferase 50 U/L (6-35); Albumin Level 3.7 g/dL (3.5-5.1); Alkaline Phosphatase 69 U/L (38-126); Anion Gap 6 mmol/L (4-12); Aspartate Amino Transferase 35 U/L (14-36); Bilirubin,Total 1.8 mg/dL (0.2-1.3); Blood Urea Nitrogen 11 mg/dL (7-17); Calcium 8.9 mg/dL (8.4-10.2); Carbon Dioxide 25 mmol/L (22-30); Chloride 104 mmol/L (98-107); Estimated CRCL calculation 60 ml/min; Estimated Glomerular Filt Rate 59; Glucose 103 mg/dL (65-110); Magnesium 1.9 mg/dL (1.6-2.3); Potassium 4.2 mmol/L (3.4-5.0); Sodium 135 mmol/L (137-145); Total Protein 6.6 g/dL (6.3-8.2)
--- NOTE | 2025-06-05 07:02 | W.PM.PROC2 ---
Procedure Note - Detailed Date of Procedure 06/05/25 Pre-op Diagnosis Ureteral calculi, abnormal UA Post-op Diagnosis Same Procedure Performed Cystoscopy, left retrograde pyelogram, left ureteral stent Surgeon Seferino Evans MD Anesthesia General Description of Procedure Prior to the operation an informed consent was obtained. The patient was brought back to the operative suite and a detailed timeout was performed. General anesthesia was induced without complication. The patient was administered IV antibiotics in the prophylactic form. The patient was positioned in the dorsal lithotomy position with close attention to all pressure points and was prepped and draped in sterile fashion. We began the case using a rigid cystoscope to gain access into the bladder under direct visualization per urethra. Cystoscopy was unremarkable. We turned our attention to the left ureteral orifice and cannulated it using a 5 [place] open-ended ureteral catheter and sensor wire. We radiologically confirmed the wire to pass up into the renal pelvis before advancing the ureteral catheter up to get an estimated measurement for our stent size as well as performing a retrograde pyelogram to better delineate the renal pelvis. With our wire in place, we placed a 4.8Fr variable length double-J ureteral stent with no string. We confirmed excellent position fluoroscopically. The patient's bladder was emptied at the conclusion of the case and the patient tolerated the procedure well. This note was created with the assistance of voice-recognition software and may contain phonetic errors. Urine Output 600
--- NOTE | 2025-06-05 07:03 | WPDURCON ---
Assessment and Plan Assessment and plan (1) Calculus, ureteral: Code(s): N20.1 - Calculus of ureter Status: Acute Assessment and Plan: ASSESSMENT: - Left proximal ureteral stone, obstructing. - Possible pyelonephritis. MEDICAL DECISION MAKING: The patient presents with an obstructing ureteral stone and signs of infection on urinalysis. Given the findings, admission is warranted for management of potential pyelonephritis. The plan is for surgical intervention to relieve the obstruction and address the stone. Blood cultures have been drawn. She will require definitive outpatient stone surgery later. PLAN: - Plan for cystoscopy, left retrograde pyelogram, and left ureteral stent placement at [facility]. - Blood cultures pending. - Post-op admission to be based on infection, cultures, etc - Will require future outpatient elective stone surgery. Urology Consult Note HPI Date Seen: 06/05/25 Requesting Physician: Fredrick Dallas MD Primary Care Provider: THREADER PHYSICIAN Consult Narrative Narrative: Chief Complaint: - New onset severe left flank pain. 06/04/2025 History of Present Illness: New patient, Ms. Tristan, presented [facility] with new onset severe left-sided flank pain. There is no prior history of kidney stones. A non-contrast CT of the abdomen and pelvis revealed an 8 mm left proximal ureteral stone. The left kidney was noted to be more atrophic than the right and contains an additional 6 mm non-obstructing lower pole stone. The right kidney has a punctate right lower pole stone. The patient is afebrile with stable vital signs, though her fever just reached 100. -PERTINENT LABS: 06/04/2025 - Serum WBC: 12.9 06/04/2025 - Creatinine: 1.1 -PERTINENT IMAGIN06/04/2025 CT Abdomen/Pelvis non-contrast ([facility]) - 8 mm left proximal ureteral stone. Left kidney is more atrophic than right. Additional 6 mm non-obstructing left lower pole stone. Punctate right lower pole stone. 06/04/2025 UA: Nitrite negative, leukocyte esterase positive, negative for blood, >WBC than RBC, moderate squamous cells, 2+ bacteria. Review of Systems Review of Systems: All systems reviewed & are unremarkable except as noted in HPI and below PMFSH Family History Family History Mother Cervical cancer Social History Social History Smoking status: Current every day smoker Tobacco type: e-cigarettes/vaping Alcohol intake: current Drinks per week: 1 Substance use: never Lack of Transportation: No Lack of Food: Never True Current Housing: I Have Housing Concerned About Future Housing: No Difficulty Paying Gas/Electric Bills: No Difficulty Paying for Meds: No Currently Unemployed: No Education: High School Diploma/GED Difficulty w/ Childcare or Family Care: No Spiritual care concerns: No Meds Home Medications and Allergies Home Medications ?Medication ?Instructions ?Recorded ?Confirmed ?Type amoxicillin 875 mg-potassium 1 tablet PO Q12H 06/04/25 06/04/25 History clavulanate 125 mg tablet fluticasone propionate 50 1 spray intranasal DAILY 06/04/25 06/04/25 History mcg/actuation nasal spray,suspension metronidazole 500 mg tablet 500 mg PO Q12H 06/04/25 06/04/25 History nitrofurantoin 100 mg PO DAILY 06/04/25 06/04/25 History monohydrate/macrocrystals 100 mg capsule topiramate 50 mg tablet 50 mg PO DAILY 06/04/25 06/04/25 History Allergies Allergy/AdvReac Type Severity Reaction Status Date / Time No Known Allergies Allergy Verified 06/04/25 23:34 Vital Signs Vital Signs - 24 hr 06/04/25 17:04 06/04/25 17:22 06/04/25 18:15 Temperature 37.5 C Pulse Rate 99 96 91 Respiratory Rate 18 18 16 Blood Pressure 114/67 102/60 104/62 Pulse Oximetry 97 99 98 Oxygen Delivery Room Air 06/04/25 20:45 06/04/25 21:07 06/05/25 05:50 Temperature 36.2 C L 36.9 C 38.1 C H Pulse Rate 91 89 105 H Respiratory Rate 18 16 20 Blood Pressure 94/72 L 115/69 117/59 L Pulse Oximetry 98 95 100 Oxygen Delivery Exam Narrative: No acute distress Results Labs 06/05/25 05:43 06/05/25 05:43 Labs: Short CBC 06/04/25 06/05/25 Range/Units 17:23 05:43 WBC 12.9 H 13.5 H (4.5-10.0) K/mm3 Hgb 12.5 11.6 L (12.0-15.0) g/dL Hct 39.8 36.2 L (37.0-47.0) % Plt Count 220 187 (150-375) k/mm3 BMP 06/04/25 06/05/25 17:23 05:43 Sodium 137 135 L Potassium 3.9 4.2 Chloride 102 104 Carbon Dioxide 26 25 BUN 14 11 Creatinine 1.08 H 1.07 H Glucose 104 103 Calcium 9.3 8.9 Liver Function 06/04/25 06/05/25 Range/Units 17:23 05:43 Total Bilirubin 1.2 1.8 H (0.2-1.3) mg/dL AST 39 H 35 (14-36) U/L ALT 62 H 50 H (6-35) U/L Alkaline Phosphatase 62 69 (38-126) U/L Albumin 4.2 3.7 (3.5-5.1) g/dL Urine 06/04/25 Range/Units 17:05 Urine Color Dark yellow (Yellow) Urine Appearance Clear (Clear) Urine pH 6.5 (5.0-9.0) Ur Specific [place] 1.037 H (1.001-1.035) Urine Protein 1+ H (Negative) mg/dL Urine Glucose (UA) Negative (Negative) mg/dL
--- NOTE | 2025-06-05 07:44 | P.PNIM_ITS ---
Progress Note: A&P Assessment and Plan (1) Sepsis: Code(s): A41.9 - Sepsis, unspecified organism Status: Acute Assessment and Plan: - criteria met this AM with T max 100.5, WBC 13.5, HR 105 - LA WNL. BP soft after surgery. Ordered IV fluid bolus. - continue IV fluids - management of UTI as below (2) Calculus, ureteral: Code(s): N20.1 - Calculus of ureter Status: Acute Assessment and Plan: -Left proximal ureteral obstruction with 8 mm stone and hydronephrosis with UA suggestive of developing UTI -Avoid ketorolac at this time per Urology preferences -Urology consulted - s/p stent placement 06/05 -Serum Cr 1.08 with Cr clearance noted at 59, no prior labs on file -IV fluids infusing and PRN pain/nausea medication available (3) Urinary tract infection: Code(s): N39.0 - Urinary tract infection, site not specified Status: Acute Assessment and Plan: -UA with 2+ urine bacteria, 2+ leukocyte esterase and WBCs though there is squamous cell contamination -Obstructed left ureter with flank pain - WBC 12, low grade fevers -Rocephin started in ER, continue -No prior labs or cultures on file, urine culture pending -Fever and urinary frequency started in the morning on day of admission Subjective Date/time seen: 06/05/25 07:44 Interval history: Patient seen and examined at bedside. Complaining of severe pain in the left flank this AM. Patient upset and tearful about having to stay in the hospital, but understanding. Review of Systems Review of Systems: All systems reviewed & are unremarkable except as noted in HPI and below Exam Narrative: General: mildly ill-appearing Eyes: EOMI ENT: neck supple Cardiovascular: tachycardia, regular rhythm Respiratory: Clear to auscultation, respirations even and unlabored on RA Gastrointestinal: Soft, non tender Genitourinary: +left flank tenderness Musculoskeletal: No edema Skin: warm, dry Neuro: Alert. Psych: Mood appropriate Objective Data Vital Signs Vital Signs: Vital Signs - 24 hr 06/04/25 17:04 06/04/25 17:22 06/04/25 18:15 Temperature 99.5 F Pulse Rate 99 96 91 Respiratory Rate 18 18 16 Blood Pressure 114/67 102/60 104/62 Pulse Oximetry 97 99 98 Oxygen Delivery Room Air 06/04/25 20:45 06/04/25 21:07 06/05/25 05:50 Temperature 97.2 F L 98.4 F 100.5 F H Pulse Rate 91 89 105 H Respiratory Rate 18 16 20 Blood Pressure 94/72 L 115/69 117/59 L Pulse Oximetry 98 95 100 Oxygen Delivery Intake/Output Intake/Output: Intake & Output 06/02/25 06/03/25 06/04/25 06/05/25 23:59 23:59 23:59 23:59 Intake Total 50 1000 Output Total 1800 Balance 50 -800 Meds/Results Medications: Active Medications Generic Name Dose Route Start Last Admin Trade Name Freq PRN Reason Stop Dose Admin Acetaminophen 650 mg 06/05/25 04:19 06/05/25 04:42 Acetaminophen 325 Mg Tablet PO 650 mg Q4H PRN Administration Mild Pain (1-3) or Fever Hydromorphone HCl 1 mg 06/05/25 01:12 06/05/25 02:50 Hydromorphone Hcl Inj (*Crx) 2 Mg/Ml Vial IV PUSH 1 mg Q3H PRN Administration Pain Rated 7-10 Lactated Ringer's 1,000 mls @ 125 mls/hr 06/04/25 20:00 06/05/25 04:41 Lr - Lactated Ringers Iv IV CONT 125 mls/hr .Q8H RD Administration Ondansetron HCl 4 mg 06/04/25 20:00 Ondansetron Inj 4 Mg/2 Ml Vial IV PUSH Q4H PRN Nausea Radiology Results: ITS Impressions Abdomen/Pelvis CT 06/04/25 19:14 IMPRESSION: Left-sided hydroureteronephrosis secondary to an 8 mm calculus in the proximal left ureter. The left kidney is atrophic when compared to the right. Fecal stasis within the cecum and rectum. Labs Labs: Laboratory Results - last 24 hr 06/04/25 06/04/25 06/04/25 17:05 17:10 17:23 WBC 12.9 H RBC 4.41 Hgb 12.5 Hct 39.8 MCV 90.2 MCH 28.3 MCHC 31.4 L RDW 13.2 Plt Count 220 MPV 8.6 Immature Gran % (Auto) Not Reportable Neut % (Auto) Not Reportable Lymph % (Auto) Not Reportable [place] % (Auto) Not Reportable Eos % (Auto) Not Reportable Baso % (Auto) Not Reportable Lymph # (Auto) Not Reportable [place] # (Auto) Not Reportable Eos # (Auto) Not Reportable Baso # (Auto) Not Reportable Abs Immat Gran (auto) Not Reportable Absolute Neuts (auto) Not Reportable Absolute Nucleated RBC Not Reportable Total Counted 100 Neutrophils % (Manual) 80 H Band Neutrophils % 9 H Lymphocytes % (Manual) 6.0 L Monocytes % (Manual) 4 Eosinophils % (Manual) 1 Nucleated RBC % Not Reportable Abs Neuts (Manual) 11.48 H Abs Lymphs (Manual) 0.77 L Abs Monocytes (Manual) 0.51 Absolute Eos (Manual) 0.12 Platelet Estimate Adequate Hypochromasia 1+ Schistocytes None seen Sodium 137 Potassium 3.9 Chloride 102 Carbon Dioxide 26 Anion Gap 9 BUN 14 Creatinine 1.08 H Estim Creat Clear Calc 59 Estimated GFR 59 Glucose 104 Calcium 9.3 Magnesium Total Bilirubin 1.2 AST 39 H ALT 62 H Alkaline Phosphatase 62 Total Protein 7.5 Albumin 4.2 Urine Color Dark yellow Urine Appearance Clear Urine pH 6.5 Ur Specific [place] 1.037 H Urine Protein 1+ H Urine Glucose (UA) Negative Urine Ketones Trace H Ur Blood (Man) Negative Urine Nitrate Negative Urine Bilirubin Negative Urine Urobilinogen 1.0 Leukocyte Esterase Rfl 2+ H Urine RBC 0-2 Urine WBC 21-50 H Ur Squamous Epith Cells Moderate Urine Bacteria 2+ H Urine Casts 0-2 POC Urine HCG, Qual Negative 06/05/25 05:43 WBC 13.5 H RBC 4.03 L Hgb 11.6 L Hct 36.2 L MCV 89.8 MCH 28.8 MCHC 32.0 RDW 13.1 Plt Count 187 MPV 8.6 Immature Gran % (Auto) 0.5 Neut % (Auto) 80.3 H Lymph % (Auto) 8.8 L [place] % (Auto) 9.8 H Eos % (Auto) 0.5 Baso % (Auto) 0.1 L Lymph # (Auto) 1.19 [place] # (Auto) 1.3 H Eos # (Auto) 0.1 Baso # (Auto) 0.0 Abs Immat Gran (auto) 0.07 H Absolute Neuts (auto) 10.8 H Absolute Nucleated RBC 0.000 Total Counted Neutrophils % (Manual) Band Neutrophils % Lymphocytes % (Manual) Monocytes % (Manual) Eosinophils % (Manual) Nucleated RBC % 0.0 Abs Neuts (Manual) Abs Lymphs (Manual) Abs Monocytes (Manual) Absolute Eos (Manual) Platelet Estimate Hypochromasia Schistocytes Sodium 135 L Potassium 4.2 Chloride 104 Carbon Dioxide 25 Anion Gap 6 BUN 11 Creatinine 1.07 H Estim Creat Clear Calc 60 Estimated GFR 59 Glucose 103 Calcium 8.9 Magnesium 1.9 Total Bilirubin 1.8 H AST 35 ALT 50 H Alkaline Phosphatase 69 Total Protein 6.6 Albumin 3.7 Urine Color Urine Appearance Urine pH Ur Specific [place] Urine Protein Urine Glucose (UA) Urine Ketones Ur Blood (Man) Urine Nitrate Urine Bilirubin Urine Urobilinogen Leukocyte Esterase Rfl Urine RBC Urine WBC Ur Squamous Epith Cells Urine Bacteria Urine Casts POC Urine HCG, Qual
--- NOTE | 2025-06-05 10:32 | WPDHPUPDATE1 ---
History and Physical Update Update Date/Time: 06/05/25 10:32 History and Physical has been reviewed, including an updated exam of the patient. There are NO changes in the patient's condition. Risks, benefits, and alternatives have been discussed and questions answered. Patient agrees to proceed with procedure.
[2025-06-05] MEDS: LACTATED RINGERS 1,000 ML 30 ML IV CONT (10:40)
--- NOTE | 2025-06-05 10:40 | WPDANESEPPF ---
Anes - Initial Pre Proc Eval Procedure: Operation Date: 06/05/25 10:00 Proposed Procedures p Cysto, Stent Placement(Left) - Seferino Evans MD Date/Time: 06/05/25 10:40 Surgeon: Fredrick Dallas MD Pre Op Diagnosis: Ureteral calculi, abnormal UA Patient Data Age: 34 Gender: F Height: 1.57 m Weight: 65.8 kg Last Vital Signs Temp 38.1 C H 06/05/25 05:50 Pulse 105 H 06/05/25 05:50 Resp 20 06/05/25 05:50 BP 117/59 L 06/05/25 05:50 Pulse Ox 100 06/05/25 05:50 O2 Del Method Room Air 06/04/25 17:04 Allergies Allergy/AdvReac Type Severity Reaction Status Date / Time No Known Allergies Allergy Verified 06/04/25 23:34 Home Medications ?Medication ?Instructions ?Recorded ?Confirmed ?Type amoxicillin 875 mg-potassium 1 tablet PO Q12H 06/04/25 06/04/25 History clavulanate 125 mg tablet fluticasone propionate 50 1 spray intranasal DAILY 06/04/25 06/04/25 History mcg/actuation nasal spray,suspension metronidazole 500 mg tablet 500 mg PO Q12H 06/04/25 06/04/25 History nitrofurantoin 100 mg PO DAILY 06/04/25 06/04/25 History monohydrate/macrocrystals 100 mg capsule topiramate 50 mg tablet 50 mg PO DAILY 06/04/25 06/04/25 History Laboratory Tests 06/04/25 06/04/25 06/04/25 17:05 17:10 17:23 WBC 12.9 H K/mm3 (4.5-10.0) RBC 4.41 M/mm3 (4.2-5.4) Hgb 12.5 g/dL (12.0-15.0) Hct 39.8 % (37.0-47.0) MCV 90.2 fl (80-100) MCH 28.3 pg (26-34) MCHC 31.4 L g/dl (32-36) RDW 13.2 % (11.5-14.5) Plt Count 220 k/mm3 (150-375) MPV 8.6 fl (7.4-10.4) Immature Gran % (Auto) Not Reportable Neut % (Auto) Not Reportable Lymph % (Auto) Not Reportable [place] % (Auto) Not Reportable Eos % (Auto) Not Reportable Baso % (Auto) Not Reportable Lymph # (Auto) Not Reportable [place] # (Auto) Not Reportable Eos # (Auto) Not Reportable Baso # (Auto) Not Reportable Abs Immat Gran (auto) Not Reportable Absolute Neuts (auto) Not Reportable Absolute Nucleated RBC Not Reportable Total Counted 100 Neutrophils % (Manual) 80 H % (46-73) Band Neutrophils % 9 H % (0-6) Lymphocytes % (Manual) 6.0 L % (18-44) Monocytes % (Manual) 4 % (3-9) Eosinophils % (Manual) 1 % (0-4) Nucleated RBC % Not Reportable Abs Neuts (Manual) 11.48 H K/mm3 (1.3-6.7) Abs Lymphs (Manual) 0.77 L K/mm3 (1.1-4.5) Abs Monocytes (Manual) 0.51 K/mm3 (0.1-0.90) Absolute Eos (Manual) 0.12 K/mm3 (0.02-0.50) Platelet Estimate Adequate (Adequate) Hypochromasia 1+ Schistocytes None seen Sodium 137 mmol/L (137-145) Potassium 3.9 mmol/L (3.4-5.0) Chloride 102 mmol/L (98-107) Carbon Dioxide 26 mmol/L (22-30) Anion Gap 9 mmol/L (4-12) BUN 14 mg/dL (7-17) Creatinine 1.08 H mg/dL (0.7-1.0) Estim Creat Clear Calc 59 ml/min Estimated GFR 59 (59 - ) Glucose 104 mg/dL (65-110) POC Capillary Glucose Lactic Acid Calcium 9.3 mg/dL (8.4-10.2) Magnesium Total Bilirubin 1.2 mg/dL (0.2-1.3) AST 39 H U/L (14-36) ALT 62 H U/L (6-35) Alkaline Phosphatase 62 U/L (38-126) Total Protein 7.5 g/dL (6.3-8.2) Albumin 4.2 g/dL (3.5-5.1) Urine Color Dark yellow (Yellow) Urine Appearance Clear (Clear) Urine pH 6.5 (5.0-9.0) Ur Specific [place] 1.037 H (1.001-1.035) Urine Protein 1+ H mg/dL (Negative) Urine Glucose (UA) Negative mg/dL (Negative) Urine Ketones Trace H mg/dL (Negative) Ur Blood (Man) Negative (Negative) Urine Nitrate Negative (Negative) Urine Bilirubin Negative (Negative) Urine Urobilinogen 1.0 mg/dL (<2.0) Leukocyte Esterase Rfl 2+ H LYRIC/UL (Negative) Urine RBC 0-2 /hpf (0-2) Urine WBC 21-50 H /hpf (0-3) Ur Squamous Epith Cells Moderate /hpf (Few) Urine Bacteria 2+ H /hpf Urine Casts 0-2 POC Urine HCG, Qual Negative (Negative) 06/05/25 06/05/25 06/05/25 05:43 06:02 07:57 WBC 13.5 H K/mm3 (4.5-10.0) RBC 4.03 L M/mm3 (4.2-5.4) Hgb 11.6 L g/dL (12.0-15.0) Hct 36.2 L % (37.0-47.0) MCV 89.8 fl (80-100) MCH 28.8 pg (26-34) MCHC 32.0 g/dl (32-36) RDW 13.1 % (11.5-14.5) Plt Count 187 k/mm3 (150-375) MPV 8.6 fl (7.4-10.4) Immature Gran % (Auto) 0.5 % (0-0.5) Neut % (Auto) 80.3 H % (45.5-73.1) Lymph % (Auto) 8.8 L % (18.3-44.2) [place] % (Auto) 9.8 H % (2.6-8.5) Eos % (Auto) 0.5 % (0-4.4) Baso % (Auto) 0.1 L % (0.2-1.2) Lymph # (Auto) 1.19 K/mm3 (0.9-3.2) [place] # (Auto) 1.3 H K/mm3 (0.1-0.6) Eos # (Auto) 0.1 K/mm3 (0-0.3) Baso # (Auto) 0.0 K/mm3 (0.0-0.1) Abs Immat Gran (auto) 0.07 H K/mm3 (0.00-0.031) Absolute Neuts (auto) 10.8 H K/mm3 (1.3-6.7) Absolute Nucleated RBC 0.000 K/mm3 (0.0-0.012) Total Counted Neutrophils % (Manual) Band Neutrophils % Lymphocytes % (Manual) Monocytes % (Manual) Eosinophils % (Manual) Nucleated RBC % 0.0 % (0.0-0.2) Abs Neuts (Manual) Abs Lymphs (Manual) Abs Monocytes (Manual) Absolute Eos (Manual) Platelet Estimate Hypochromasia Schistocytes Sodium 135 L mmol/L (137-145) Potassium 4.2 mmol/L (3.4-5.0) Chloride 104 mmol/L (98-107) Carbon Dioxide 25 mmol/L (22-30) Anion Gap 6 mmol/L (4-12) BUN 11 mg/dL (7-17) Creatinine 1.07 H mg/dL (0.7-1.0) Estim Creat Clear Calc 60 ml/min Estimated GFR 59 (59 - ) Glucose 103 mg/dL (65-110) POC Capillary Glucose 99 mg/dl (65-105) Lactic Acid 0.7 mmol/L (0.7-2.0) Calcium 8.9 mg/dL (8.4-10.2) Magnesium 1.9 mg/dL (1.6-2.3) Total Bilirubin 1.8 H mg/dL (0.2-1.3) AST 35 U/L (14-36) ALT 50 H U/L (6-35) Alkaline Phosphatase 69 U/L (38-126) Total Protein 6.6 g/dL (6.3-8.2) Albumin 3.7 g/dL (3.5-5.1) Urine Color Urine Appearance Urine pH Ur Specific [place] Urine Protein Urine Glucose (UA) Urine Ketones Ur Blood (Man) Urine Nitrate Urine Bilirubin Urine Urobilinogen Leukocyte Esterase Rfl Urine RBC Urine WBC Ur Squamous Epith Cells Urine Bacteria Urine Casts POC Urine HCG, Qual Patient hx anesthesia problems: none Family hx anesthesia problems: none Results Review: All pre-operative results and documents have been reviewed as part of the pre-operative evaluation. [facility] Past Medical History Medical History Vapes nicotine containing substance Surgical History Surgical History (Updated 06/05/25 @ 10:41 by Moo Kidd MD) History of appendectomy History of cholecystectomy Family History Family History Mother Cervical cancer Social History Social History Smoking status: Current every day smoker Tobacco type: e-cigarettes/vaping Alcohol intake: current Drinks per week: 1 Substance use: never Lack of Transportation: No Lack of Food: Never True Current Housing: I Have Housing Concerned About Future Housing: No Difficulty Paying Gas/Electric Bills: No Difficulty Paying for Meds: No Currently Unemployed: No Education: High School Diploma/GED Difficulty w/ Childcare or Family Care: No Spiritual care concerns: No Anes - Eval Final PreProcedure Day of Procedure 06/05/25 10:40 Patient weight: overweight Heart: regular rate and rhythm Lungs: clear to auscultation Airway: Mallampati scale class 1 Neurological: alert and oriented Last oral intake: >/= 8 hours ASA classification: II Emergent: no Anesthetic plan: proceed Anesthesia type and monitoring: general LMA and standard monitoring Results Review: All pre-operative results and documents have been reviewed as part of the pre-operative evaluation. Informed Consent: The patient's anesthetic plan and its attendant risks and benefits were discussed with the patient/family/POA. Questions were solicited and answers provided to the satisfaction of the patient/family/POA.
[2025-06-05] MEDS: LIDOCAINE 2% GEL UROJET 10 ML PKG MUCOUS MEM (10:57)
--- NOTE | 2025-06-05 12:16 | PC.NURSE ---
Patient returned to room 349 via bed at 1205 from surgery
[2025-06-05] MEDS: LACTATED RINGERS 1,000 ML 999 ML IV CONT (12:18)
[2025-06-05] MEDS: HYDROcodone/acetaminophen (*CRX) 5-325 MG TABLET 1 TAB PO ×2 (12:59→19:17)
[2025-06-05] MEDS: HYDROmorphone HCL INJ (*CRX) 2 MG/ML VIAL 0.5 MG IV PUSH (14:28)
[2025-06-05] MEDS: cefTRIAXone 1 GM in SODIUM CHLORIDE 0.9% IV 50 ML 100 ML IVPB (16:16)
[2025-06-06] VITALS: BP 111/57; PULSE 78; RESP 16; TEMP 36.6; O2SAT 98
[2025-06-06] MEDS: HYDROcodone/acetaminophen (*CRX) 5-325 MG TABLET 1 TAB PO ×2 (00:51→06:49)
[2025-06-06 04:54] VITALS: BP 113/68; PULSE 63; RESP 16; TEMP 36.9; O2SAT 100
[2025-06-06] MEDS: LACTATED RINGERS 1,000 ML 125 ML IV CONT (05:00)
[2025-06-06 05:56] LABS: Hematocrit 32.7 % (37.0-47.0); Hemoglobin 10.3 g/dL (12.0-15.0); Immature Granulocyte Percent A 0.6 % (0-0.5); Lymphocytes Absolute Auto 1.22 K/mm3 (0.9-3.2); Mean Corpuscular HGB Conc 31.5 g/dl (32-36); Mean Corpuscular Hemoglobin 28.5 pg (26-34); Mean Corpuscular Volume 90.6 fl (80-100); Nucleated Red Blood Cells Absolute Auto 0.000 K/mm3 (0.0-0.012); Nucleated Red Blood Cells Perc 0.0 % (0.0-0.2); Platelet Count Result 190 k/mm3 (150-375); Red Blood Count 3.61 M/mm3 (4.2-5.4); White Blood Count 13.2 K/mm3 (4.5-10.0)
[2025-06-06 06:07] LABS: Alanine Aminotransferase 38 U/L (6-35); Albumin Level 3.2 g/dL (3.5-5.1); Alkaline Phosphatase 78 U/L (38-126); Anion Gap 4 mmol/L (4-12); Aspartate Amino Transferase 23 U/L (14-36); Bilirubin,Total 0.4 mg/dL (0.2-1.3); Blood Urea Nitrogen 8 mg/dL (7-17); Calcium 8.9 mg/dL (8.4-10.2); Carbon Dioxide 27 mmol/L (22-30); Chloride 105 mmol/L (98-107); Estimated CRCL calculation 84 ml/min; Estimated Glomerular Filt Rate > 60; Glucose 176 mg/dL (65-110); Magnesium 2.0 mg/dL (1.6-2.3); Potassium 4.1 mmol/L (3.4-5.0); Sodium 136 mmol/L (137-145); Total Protein 6.0 g/dL (6.3-8.2)
--- NOTE | 2025-06-06 12:12 | P.PNUR_ITS ---
Progress Note: A&P Assessment and Plan (1) Calculus, ureteral: Code(s): N20.1 - Calculus of ureter Status: Acute Assessment and Plan: ASSESSMENT: - Left proximal ureteral stone s/p 06/05/2025 Left ureteral stent - Possible pyelonephritis. PLAN: - Medically advised patient to stay in hospital until culture data are back -- this is usually 48h, which would be this PM -- but many culture data have been taking 4+ days to return lately -- as such, the patient and I had a detailed discussion about how best to proceed given her social pressures to get back home -- she prefers to be discharged with an empiric oral antibiotic, understanding that if the bacteria is resistant, it won't work. She also understands that she is responsible for following up her own urine culture, since there is not a mechanism in place for me to be alerted to it, and I am rotating off service in the AM. She accepts these risks. - Plan for d/c home with Bactrim DS BID x7d, Tamsulosin 0.4mg daily, and hydrocodone-APAP 5-325 PO Q6H PRN pain x2 days (8 tabs) -- My e-prescribing in this EMR is not currently functioning, so may have to be provided by the hospitalist service -- we are avoiding NSAIDS, Aspirin, etc in the event that she elects for ESWL - Will require future outpatient elective stone surgery -- she has our [id number] number to work on getting scheduled for stone treatment during times she is in town Subjective Subjective Date/Time Seen: 06/06/25 12:12 Interval history: TERI o/n Patient is AFVSS, tolerating stent without issue Currently lives in [place], but is in the area frequently and believes she will get continued urologic care here Urine and Blood cultures from 06/04/2025 still pending -- patient has lots of social pressures to leave and get back to [place] WBC fairly stable at 13k Cr 0.7 from 1 Review of Systems Review of Systems: All systems reviewed & are unremarkable except as noted in HPI and below Exam Narrative: No acute distress Objective Data Vital Signs Vital Signs: Vital Signs - 24 hr 06/05/25 12:20 06/05/25 12:50 06/05/25 13:50 Temperature 36.6 C 36.6 C 36.7 C Pulse Rate 62 68 52 L Respiratory Rate 17 18 17 Blood Pressure 98/54 L 109/58 L 104/69 Pulse Oximetry 100 97 98 Oxygen Delivery 06/05/25 17:30 06/05/25 19:30 06/05/25 20:00 Temperature 36.3 C L 36.8 C Pulse Rate 54 L 87 87 Respiratory Rate 16 18 18 Blood Pressure 120/72 105/63 Pulse Oximetry 100 99 99 Oxygen Delivery Room Air 06/06/25 00:00 06/06/25 04:54 06/06/25 12:04 Temperature 36.6 C 36.9 C Pulse Rate 78 63 Respiratory Rate 16 16 Blood Pressure 111/57 L 113/68 Pulse Oximetry 98 100 Oxygen Delivery Room Air Intake/Output Intake/Output: Intake & Output 06/03/25 06/04/25 06/05/25 06/06/25 23:59 23:59 23:59 23:59 Intake Total 50 4299.6 890 Output Total 2000 400 Balance 50 2299.6 490 Meds/Results Medications: Active Medications Generic Name Dose Route Start Last Admin Trade Name Freq PRN Reason Stop Dose Admin Acetaminophen 650 mg 06/05/25 04:19 06/05/25 23:51 Acetaminophen 325 Mg Tablet PO 650 mg Q4H PRN Administration Mild Pain (1-3) or Fever Hydrocodone Bitart/Acetaminophen 1 tab 06/05/25 12:08 06/06/25 06:49 Hydrocodone/Acetaminophen (*Crx) 5-325 Mg Tablet PO 1 tab Q6H PRN Administration Pain 4-6 Fentanyl Citrate 25 mcg 06/05/25 09:50 Fentanyl Citrate Inj (*Crx) 100 Mcg/2 Ml Vial IV PUSH Q2M PRN Pain Hydromorphone HCl 0.5 mg 06/05/25 13:15 06/05/25 14:28 Hydromorphone Hcl Inj (*Crx) 2 Mg/Ml Vial IV PUSH 0.5 mg Q3H PRN Administration Pain Rated 7-10 Lactated Ringer's 1,000 mls @ 125 mls/hr 06/04/25 20:00 06/06/25 05:00 Lr - Lactated Ringers Iv IV CONT 125 mls/hr .Q8H RD Administration Ceftriaxone Sodium 1 gm/ 50 mls @ 100 mls/hr 06/05/25 17:00 06/05/25 16:46 Sodium Chloride IVPB Infused Q24H RD Infusion Ondansetron HCl 4 mg 06/04/25 20:00 Ondansetron Inj 4 Mg/2 Ml Vial IV PUSH Q4H PRN Nausea Ondansetron HCl 4 mg 06/05/25 09:50 Ondansetron Inj 4 Mg/2 Ml Vial IV PUSH ONCE PRN Nausea Radiology Results: ITS Impressions Abdomen/Pelvis CT 06/04/25 19:14 IMPRESSION: Left-sided hydroureteronephrosis secondary to an 8 mm calculus in the proximal left ureter. The left kidney is atrophic when compared to the right. Fecal stasis within the cecum and rectum. Retrograde Pyelogram 06/05/25 11:14 IMPRESSION: 1. Proximal left ureteral stone which is not seen on the final images and has either been extracted or reflux into the contrast opacified left renal collecting system. See procedure note for further detail. 2. Placement of a left intraureteral stent which is in expected position. Labs Labs: Laboratory Results - last 24 hr 06/06/25 05:41 WBC 13.2 H RBC 3.61 L Hgb 10.3 L Hct 32.7 L MCV 90.6 MCH 28.5 MCHC 31.5 L RDW 12.8 Plt Count 190 MPV 9.1 Immature Gran % (Auto) 0.6 H Neut % (Auto) 83.0 H Lymph % (Auto) 9.3 L [place] % (Auto) 6.9 Eos % (Auto) 0.1 Baso % (Auto) 0.1 L Lymph # (Auto) 1.22 [place] # (Auto) 0.9 H Eos # (Auto) 0.0 Baso # (Auto) 0.0 Abs Immat Gran (auto) 0.08 H Absolute Neuts (auto) 10.9 H Absolute Nucleated RBC 0.000 Nucleated RBC % 0.0 Sodium 136 L Potassium 4.1 Chloride 105 Carbon Dioxide 27 Anion Gap 4 BUN 8 Creatinine 0.74 Estim Creat Clear Calc 84 Estimated GFR > 60 Glucose 176 H Calcium 8.9 Magnesium 2.0 Total Bilirubin 0.4 AST 23 ALT 38 H Alkaline Phosphatase 78 Total Protein 6.0 L Albumin 3.2 L
--- NOTE | 2025-06-06 12:49 | PM.DS ---
DS: Admitting Diagnosis Discharge Date 06/06/25 Admitting Diagnosis - ureteral calculus - sepsis - UTI DS: Discharge Diagnosis Discharge Diagnosis (1) Sepsis: Code(s): A41.9 - Sepsis, unspecified organism Status: Acute (2) Calculus, ureteral: Code(s): N20.1 - Calculus of ureter Status: Acute (3) Urinary tract infection: Code(s): N39.0 - Urinary tract infection, site not specified Status: Acute DS: Summary Hospital Course Reason for hospitalization: - ureteral calculus - sepsis - UTI Hospital Course: Patient is 34 yo female who presented to the emergency department with flank pain. In the ED, WBC 12.9, Cr 1.08, AST 39, ALT 62, UA with 1+ protein, trace ketones, 2+ LE, 21-50 WBC, 2+ bacteria, moderate squamous cells. CT with left-sided hydroureteronephrosis secondary to an 8 mm calculus in the proximal left ureter. Left kidney is atrophic compared to right. Fecal stasis in the cecum and rectum. She was started on IV Rocephin, IV fluids and pain control. Patient was admitted to the medical floor for urologic evaluation. Upon admission patient was meeting sepsis criteria fever of 100.5, leukocytosis and tachycardia. Lactic acid was normal. Patient was taken to the OR by Urology underwent cystoscopy, left retrograde pyelogram and left ureteral stent by Dr. Evans 06/06/25. She was transferred back to the medical floor and had mild hypotension postoperatively improved with IV fluids. Despite pending urine and blood cultures, patient was very persistent about being discharged. Myself and urology advised patient to stay in the hospital until cultures returned. We had a detailed discussion about the risks of discharging prior to receiving culture data to properly prescribe antibiotic therapy. Patient expressed understanding that if the bacteria is resistant, the antibiotic would not work. She still wished to be discharged with close outpatient follow-up. Per urology recs, patient was discharged on Bactrim DS BID x7 days with pain control and Flomax. Urine culture will be followed on discharge. On discharge, patient was afebrile with stable vital signs. Her pain was controlled and urinary symptoms were improving. Return precautions were discussed with the patient and placed on discharge paperwork. She is from [place], but she is in the area frequently and will follow-up with urology here to discuss definitive stone management and stent removal. Patient was discharged home in stable condition. Status at Discharge Functional status at discharge: independent ambulation Time Spent with Patient Time attestation: Total time spent providing and/or coordinating discharge services: Time spent: Greater than 30 minutes Exam Narrative: General: NAD Eyes: EOMI ENT: neck supple Cardiovascular: tachycardia, regular rhythm Respiratory: Clear to auscultation, respirations even and unlabored on RA Gastrointestinal: Soft, non tender Genitourinary: no suprapubic pressure Musculoskeletal: No edema Skin: warm, dry Neuro: Alert. Psych: Mood appropriate DS: Data Data Completed and Pending Labs on day of discharge: Labs from last 24 hours 06/06/25 05:41 WBC 13.2 H RBC 3.61 L Hgb 10.3 L Hct 32.7 L MCV 90.6 MCH 28.5 MCHC 31.5 L RDW 12.8 Plt Count 190 MPV 9.1 Immature Gran % (Auto) 0.6 H Neut % (Auto) 83.0 H Lymph % (Auto) 9.3 L [place] % (Auto) 6.9 Eos % (Auto) 0.1 Baso % (Auto) 0.1 L Lymph # (Auto) 1.22 [place] # (Auto) 0.9 H Eos # (Auto) 0.0 Baso # (Auto) 0.0 Abs Immat Gran (auto) 0.08 H Absolute Neuts (auto) 10.9 H Absolute Nucleated RBC 0.000 Nucleated RBC % 0.0 Sodium 136 L Potassium 4.1 Chloride 105 Carbon Dioxide 27 Anion Gap 4 BUN 8 Creatinine 0.74 Estim Creat Clear Calc 84 Estimated GFR > 60 Glucose 176 H Calcium 8.9 Magnesium 2.0 Total Bilirubin 0.4 AST 23 ALT 38 H Alkaline Phosphatase 78 Total Protein 6.0 L Albumin 3.2 L Discharge Plan Discharge Attending physician on discharge: Fredrick Dallas Consulting providers: Marzena Solis; Seferino Evans Discharging Clinician: Marzena Solis Anticipated Discharge Date/Time: 06/06/25 12:27 Patient Disposition: Home Activity: no preference Diet: regular Discharge Instructions: Take all medications as prescribed. Finish antibiotics even if you are feeling better. Return to the hospital if you develop severe flank pain, fevers, chills, pain with urination, nausea/vomiting. We will call you if your antibiotic needs to be adjusted per your culture results. This may require you to come back to the hospital if IV antibiotics are warranted. Follow-up with your primary care provider in one week. You will need to arrange follow-up with urology as an outpatient to have further intervention on your kidney stone and to have the stent removed. You have been started on Flomax to help with passing the kidney stone. Return to the emergency department if you develop chest pain, shortness of breath, persistent fever >100.4, confusion, loss of consciousness. Patient Instructions: Antibiotic Form Patient Language: Lithuanian Stand Alone Forms: General Discharge Information Follow-up/Referrals: Sagar Forde MD [Physician] - Call for Appointment (May also call [address] [place] [address] to arrange for stone treatment) Discharge Medications: New sulfamethoxazole-trimethoprim [Bactrim DS] 800-160 mg tablet 1 tablet PO Q12H Qty: 14 0RF tamsulosin [Flomax] 0.4 mg capsule 0.4 mg PO DAILY Qty: 30 0RF hydrocodone-acetaminophen 5-325 mg tablet 1 tablet PO Q6H PRN (Reason: pain) 2 Days Qty: 8 0RF Continued fluticasone propionate 50 mcg/actuation spray,suspension 1 spray INTRANASAL DAILY Discontinued amoxicillin-pot clavulanate 875-125 mg tablet 1 tablet PO Q12H metronidazole 500 mg tablet 500 mg PO Q12H nitrofurantoin monohyd/m-cryst 100 mg capsule 100 mg PO DAILY topiramate 50 mg tablet 50 mg PO DAILY Date of admission: 06/04/25 20:00 Primary Care Provider: PHYSICIAN,BUSINESS UNIT LEADER Admitting Provider: Fredrick Dallas Attending physician on admission: Fredrick Dallas Condition: Stable
--- NOTE | 2025-06-10 08:17 | PC.NURSE ---
Urine cx growing E. coli. Pt dc on Bactrim which is susceptible.
--- NOTE | 2025-06-14 07:42 | PC.NURSE ---
Blood cx show no growth.
== END 2025-06-06 13:25 | disposition home or self-care (01) ==
LOC: ANHED 20:26 → ANH3MED 20:31
PROVIDERS: Nurse Practitioner; Physician Assistant; Urology; Admitting Provider Internal Medicine; Emergency Provider Emergency Medicine; Visit Provider Internal Medicine
PROC: (CPT 52352; principal; 2025-06-05 10:30)
DX: A41.9 Sepsis, unspecified organism (principal); N13.2 Hydronephrosis with renal and ureteral calculous obstruction; N39.0 Urinary tract infection, site not specified; F17.290 Nicotine dependence, other tobacco product, uncomplicated
CPT/HCPCS: 52332; 36415; 74176; 74420; 80053; 81001; 81025; 82948; 83605; 83735; 85025; 87086; 96361; 96365; 96375; 96376; 99285; A9270; C1758; C1769; C2617; G0378; J0696; J1100; J1171; J2250; J2270; J2405; J2704; J3010; J7120; Q9966

== ENCOUNTER 2025-09-21 18:37 | Inpatient (IN) | payer SELFPAY ==
[2025-09-21] VITALS (7 sets, daily range): BP systolic 92–132; BP diastolic 53–76; PULSE 55–90; RESP 16–18; TEMP 36.3–37.6; O2SAT 98–100; BMI 27.3; BMI 28.2
--- NOTE | ~2025-09-21 | CT_ITS ---
EXAMINATION: CT abdomen pelvis wo con DATE: 09/21/2025 20:49 INDICATION: UTI. History of kidney stones with stent in left ureter. TECHNIQUE: Computed tomography (CT) of the abdomen and pelvis was performed without intravenous contrast. Automated exposure control and iterative reconstruction technique were employed. The dose-length product was 309.38 mGy-cm. COMPARISON: CT dated 06/04/2025 FINDINGS: Lung bases do not show acute findings. No focal lesions of the liver and spleen. Gallbladder is absent. Pancreas shows no acute findings. No calculi are obstruction of right kidney. Atrophic changes of the left kidney with cortical scarring. Moderate left hydronephrosis with stent in place. No calcific densities are seen in the pleural effusion since system, ureter and bladder. No pelvic mass or fluid collections. No acute findings of lumbar spine IMPRESSION: 1. Limited noncontrast CT scan, not optimal to evaluate solid viscera, neoplasms and vascular structures. 2. Left ureteric stent is noted in place. No calculi are noted. Moderate left hydronephrosis is noted. 3. Left kidney is atrophic with cortical scarring. Reviewed, dictated and finalized at location [facility] IMPRESSION: 1. Limited noncontrast CT scan, not optimal to evaluate solid viscera, neoplasm s and vascular structures. 2. Left ureteric stent is noted in place. No calculi are noted. Moderate left h ydronephrosis is noted. 3. Left kidney is atrophic with cortical scarring.
--- NOTE | ~2025-09-21 | XR_ITS ---
EXAMINATION: XR chest 2V DATE: 09/21/2025 18:58 INDICATION: Fever and cough. TECHNIQUE: Frontal and lateral views of the chest were obtained. COMPARISON: None. FINDINGS: Heart size is normal. Lungs are clear of acute processes. IMPRESSION: 1. No acute findings. Reviewed, dictated and finalized at location [facility] IMPRESSION: 1. No acute findings.
--- NOTE | 2025-09-21 18:48 | ED_ITS ---
HPI - URI/Sore Throat General Chief Complaint: Upper Respiratory Infection <Janee Moss PA-C - Last Filed: 09/23/25 17:20> Stated Complaint: fever x 2 days, SOB, <Janee Moss PA-C - Last Filed: 09/23/25 17:20> Time Seen by Provider: 09/21/25 18:49 <Janee Moss PA-C - Last Filed: 09/23/25 17:20> Focused HPI: This is a 34 year old female that presents to the ER for cold symptoms. Ongoing over the last 2 days. Reports fever, chills, cough, headache, body aches. She additionally reports she has had dysuria, urinary frequency. Reports she had a stent placed in her ureter several months ago that she has not had taken out. GENERAL: Ill-appearing, well-nourished, and in no acute distress. HEAD: Normocephalic, atraumatic. CHEST: Clear to auscultation. ?No respiratory distress. HEART: Regular rate and rhythm.? NEURO: ?Alert and oriented x3. Patient screened in triage and initial orders placed.? ?Additional care and disposition to be based upon?diagnostic testing and treatment. <Janee Moss PA-C - Last Filed: 09/23/25 17:20> History of Present Illness HPI Narrative: Patient 32-year-old female presents emergency department with chief complaint of fever body aches and chills she also has had cough the patient reports the cough has been nonproductive the patient states she last took Tylenol this afternoon and reports that her temperature was a 103? at that time patient reports that she had a kidney stone back in May and had a ureteral stent placed at that time the patient reports she has not followed up with status still in place <Bud Dumont MD - Last Filed: 09/21/25 21:36> Related Data Allergies/Adverse Reactions: Allergies Allergy/AdvReac Type Severity Reaction Status Date / Time No Known Allergies Allergy Verified 09/21/25 18:38 <Janee Moss PA-C - Last Filed: 09/23/25 17:20> Review of Systems 2 Review of Systems: A 10 system review of systems was completed on the patient and is negative except for what is stated in the HPI. Nursing and ancillary documentation was reviewed. <Bud Dumont MD - Last Filed: 09/21/25 21:36> PMFSH Past Medical History Medical History: Medical History Vapes nicotine containing substance <Janee Moss PA-C - Last Filed: 09/23/25 17:20> Surgical History Surgical History: Surgical History (Updated 09/22/25 @ 07:31 by ODILIA Bee) History of History of appendectomy History of cholecystectomy <Janee Moss PA-C - Last Filed: 09/23/25 17:20> Family History Family History: Family History Mother Cervical cancer <Janee Moss PA-C - Last Filed: 09/23/25 17:20> Social History Social History: Social History Smoking status: Current every day smoker Tobacco type: e-cigarettes/vaping Alcohol intake: current Drinks per week: 1 Substance use: never Substance use type: marijuana Lack of Transportation: No Lack of Food: Never True Current Housing: I Have Housing Concerned About Future Housing: No Difficulty Paying Gas/Electric Bills: No Difficulty Paying for Meds: No Currently Unemployed: No Education: High School Diploma/GED Difficulty w/ Childcare or Family Care: No Spiritual care concerns: No <Janee Moss PA-C - Last Filed: 09/23/25 17:20> Exam 2 Narrative: GENERAL: Well-appearing, well-nourished, and in no acute distress. HEAD: Normocephalic, atraumatic. EYES: PERRLA and EOMI. ENT: Nares clear, no rhinorrhea or epistaxis. Mucous membranes moist. NECK: Supple. CHEST: Clear to auscultation. No respiratory distress. HEART: Regular rate and rhythm. No murmur heard. Normal peripheral pulses. ABDOMEN: Soft, nontender, nondistended, normal active bowel sounds. EXTREMITIES: Normal range of motion. No edema. SKIN: Warm, dry, no rash. NEURO: No focal deficits. Alert and oriented x3. PSYCH: Normal mood and affect. <Bud Dumont MD - Last Filed: 09/21/25 21:36> Course Vital Signs Vital signs: Vital Signs Temperature 98.3 F 09/21/25 18:40 Pulse Rate 90 09/21/25 18:40 Respiratory Rate 16 09/21/25 18:40 Blood Pressure 117/67 09/21/25 18:40 Pulse Oximetry 100 09/21/25 18:40 Oxygen Delivery Room Air 09/21/25 18:40 Temperature 98.5 F 09/23/25 13:55 Pulse Rate 71 09/23/25 13:55 Respiratory Rate 20 09/23/25 13:55 Blood Pressure 95/55 L 09/23/25 13:55 Pulse Oximetry 99 09/23/25 13:55 Oxygen Delivery Room Air 09/23/25 07:55 <Janee Moss PA-C - Last Filed: 09/23/25 17:20> Vital Signs Temperature 98.3 F 09/21/25 18:40 Pulse Rate 90 09/21/25 18:40 Respiratory Rate 16 09/21/25 18:40 Blood Pressure 117/67 09/21/25 18:40 Pulse Oximetry 100 09/21/25 18:40 Oxygen Delivery Room Air 09/21/25 18:40 Temperature 98.5 F 09/23/25 13:55 Pulse Rate 71 09/23/25 13:55 Respiratory Rate 20 09/23/25 13:55 Blood Pressure 95/55 L 09/23/25 13:55 Pulse Oximetry 99 09/23/25 13:55 Oxygen Delivery Room Air 09/23/25 07:55 <Bud Dumont MD - Last Filed: 09/21/25 21:36> MDM - URI/Sore Throat MDM Narrative Medical decision making narrative: Differential diagnosis includes pneumonia, upper respiratory infection, UTI, pyelonephritis, ureterolithiasis Laboratory studies were obtained on the patient which showed a urinalysis with greater than 100 white blood cells and 221-50 red blood cells 3+ leukocyte esterase and 4+ bacteria COVID flu and RSV are negative chest x-ray showed no focal infiltrate CT scan of the abdomen pelvis was obtained that showed 1. Limited noncontrast CT scan, not optimal to evaluate solid viscera, neoplasms and vascular structures. 2. Left ureteric stent is noted in place. No calculi are noted. Moderate left hydronephrosis is noted. 3. Left kidney is atrophic with cortical scarring. The case was discussed with Dr. Ordaz of Urology who will consult on the patient and recommended the patient be on IV antibiotics and admission to the hospitalist service Blood cultures were obtained Rocephin was ordered for the patient <Bud Dumont MD - Last Filed: 09/21/25 21:36> Lab Data Result diagrams: 09/23/25 04:20 09/23/25 04:20 <Janee Moss PA-C - Last Filed: 09/23/25 17:20> Labs: Lab Results 09/21/25 09/21/25 09/21/25 Range/Units 19:12 19:13 20:55 WBC 5.4 (4.5-10.0) K/mm3 RBC 4.68 (4.2-5.4) M/mm3 Hgb 12.7 (12.0-15.0) g/dL Hct 39.6 (37.0-47.0) % MCV 84.6 (80-100) fl MCH 27.1 (26-34) pg MCHC 32.1 (32-36) g/dl RDW 14.2 (11.5-14.5) % Plt Count 197 (150-375) k/mm3 MPV 9.1 (7.4-10.4) fl Immature Gran % (Auto) 0.6 H (0-0.5) % Neut % (Auto) 68.2 (45.5-73.1) % Lymph % (Auto) 21.5 (18.3-44.2) % [place] % (Auto) 9.3 H (2.6-8.5) % Eos % (Auto) 0.2 (0-4.4) % Baso % (Auto) 0.2 (0.2-1.2) % Lymph # (Auto) 1.16 (0.9-3.2) K/mm3 [place] # (Auto) 0.5 (0.1-0.6) K/mm3 Eos # (Auto) 0.0 (0-0.3) K/mm3 Baso # (Auto) 0.0 (0.0-0.1) K/mm3 Abs Immat Gran (auto) 0.03 (0.00-0.031) K/mm3 Absolute Neuts (auto) 3.7 (1.3-6.7) K/mm3 Absolute Nucleated RBC 0.000 (0.0-0.012) K/mm3 Nucleated RBC % 0.0 (0.0-0.2) % Sodium 131 L (137-145) mmol/L Potassium 3.9 (3.4-5.0) mmol/L Chloride 100 (98-107) mmol/L Carbon Dioxide 22 (22-30) mmol/L Anion Gap 9 (4-12) mmol/L BUN 12 (7-17) mg/dL Creatinine 0.97 (0.7-1.0) mg/dL Estim Creat Clear Calc 66 ml/min Estimated GFR > 60 (59 - ) Glucose 81 (65-110) mg/dL Lactic Acid 0.9 (0.7-2.0) mmol/L Calcium 9.1 (8.4-10.2) mg/dL Total Bilirubin 1.0 (0.2-1.3) mg/dL AST 37 H (14-36) U/L ALT 34 (6-35) U/L Alkaline Phosphatase 57 (38-126) U/L Total Protein 7.6 (6.3-8.2) g/dL Albumin 4.3 (3.5-5.1) g/dL Procalcitonin 0.1 ng/mL Urine Color Dark yellow (Yellow) Urine Appearance Turbid H (Clear) Urine pH 6.5 (5.0-9.0) Ur Specific [place] 1.028 (1.001-1.035) Urine Protein 3+ H (Negative) mg/dL Urine Glucose (UA) Negative (Negative) mg/dL Urine Ketones 3+ H (Negative) mg/dL Ur Blood (Man) 2+ H (Negative) Urine Nitrate Positive H (Negative) Urine Bilirubin 1+ H (Negative) Urine Urobilinogen 1.0 (<2.0) mg/dL Add Ur Microanalysis Reviewed Leukocyte Esterase Rfl 3+ H (Negative) LYRIC/UL Urine RBC 21-50 H (0-2) /hpf Urine WBC >100 H (0-3) /hpf Ur Squamous Epith Cells Many H (Few) /hpf Urine Bacteria 4+ H /hpf Urine Casts 3-5 Urine Mucus Present /lpf POC Urine HCG, Qual Negative (Negative) Influenza A (RT-PCR) Negative (Negative) Influenza B (RT-PCR) Negative (Negative) RSV (RT-PCR) Negative (Negative) SARS-CoV-2 RNA (RT-PCR) Negative (Negative) <Janee Moss PA-C - Last Filed: 09/23/25 17:20> Lab Results 09/21/25 09/21/25 09/21/25 Range/Units 19:12 19:13 20:55 WBC 5.4 (4.5-10.0) K/mm3 RBC 4.68 (4.2-5.4) M/mm3 Hgb 12.7 (12.0-15.0) g/dL Hct 39.6 (37.0-47.0) % MCV 84.6 (80-100) fl MCH 27.1 (26-34) pg MCHC 32.1 (32-36) g/dl RDW 14.2 (11.5-14.5) % Plt Count 197 (150-375) k/mm3 MPV 9.1 (7.4-10.4) fl Immature Gran % (Auto) 0.6 H (0-0.5) % Neut % (Auto) 68.2 (45.5-73.1) % Lymph % (Auto) 21.5 (18.3-44.2) % [place] % (Auto) 9.3 H (2.6-8.5) % Eos % (Auto) 0.2 (0-4.4) % Baso % (Auto) 0.2 (0.2-1.2) % Lymph # (Auto) 1.16 (0.9-3.2) K/mm3 [place] # (Auto) 0.5 (0.1-0.6) K/mm3 Eos # (Auto) 0.0 (0-0.3) K/mm3 Baso # (Auto) 0.0 (0.0-0.1) K/mm3 Abs Immat Gran (auto) 0.03 (0.00-0.031) K/mm3 Absolute Neuts (auto) 3.7 (1.3-6.7) K/mm3 Absolute Nucleated RBC 0.000 (0.0-0.012) K/mm3 Nucleated RBC % 0.0 (0.0-0.2) % Sodium 131 L (137-145) mmol/L Potassium 3.9 (3.4-5.0) mmol/L Chloride 100 (98-107) mmol/L Carbon Dioxide 22 (22-30) mmol/L Anion Gap 9 (4-12) mmol/L BUN 12 (7-17) mg/dL Creatinine 0.97 (0.7-1.0) mg/dL Estim Creat Clear Calc 66 ml/min Estimated GFR > 60 (59 - ) Glucose 81 (65-110) mg/dL Lactic Acid 0.9 (0.7-2.0) mmol/L Calcium 9.1 (8.4-10.2) mg/dL Total Bilirubin 1.0 (0.2-1.3) mg/dL AST 37 H (14-36) U/L ALT 34 (6-35) U/L Alkaline Phosphatase 57 (38-126) U/L Total Protein 7.6 (6.3-8.2) g/dL Albumin 4.3 (3.5-5.1) g/dL Procalcitonin 0.1 ng/mL Urine Color Dark yellow (Yellow) Urine Appearance Turbid H (Clear) Urine pH 6.5 (5.0-9.0) Ur Specific [place] 1.028 (1.001-1.035) Urine Protein 3+ H (Negative) mg/dL Urine Glucose (UA) Negative (Negative) mg/dL Urine Ketones 3+ H (Negative) mg/dL Ur Blood (Man) 2+ H (Negative) Urine Nitrate Positive H (Negative) Urine Bilirubin 1+ H (Negative) Urine Urobilinogen 1.0 (<2.0) mg/dL Add Ur Microanalysis Reviewed Leukocyte Esterase Rfl 3+ H (Negative) LYRIC/UL Urine RBC 21-50 H (0-2) /hpf Urine WBC >100 H (0-3) /hpf Ur Squamous Epith Cells Many H (Few) /hpf Urine Bacteria 4+ H /hpf Urine Casts 3-5 Urine Mucus Present /lpf POC Urine HCG, Qual Negative (Negative) Influenza A (RT-PCR) Negative (Negative) Influenza B (RT-PCR) Negative (Negative) RSV (RT-PCR) Negative (Negative) SARS-CoV-2 RNA (RT-PCR) Negative (Negative) <Bud Dumont MD - Last Filed: 09/21/25 21:36> Discharge Plan Discharge Clinical Impression: Pyelonephritis, Retained ureteral stent <Janee Moss PA-C - Last Filed: 09/23/25 17:20> Patient Disposition: Still a Patient <Janee Moss PA-C - Last Filed: 09/23/25 17:20> Condition: Stable <Janee Moss PA-C - Last Filed: 09/23/25 17:20>
[2025-09-21 19:14] LABS: BEDSIDEPREGUCG Negative (Negative)
[2025-09-21 19:57] LABS: Influenza A QL RT-PCR Negative (Negative); Influenza B QL RT-PCR Negative (Negative); RSV RNA, RT-PCR Negative (Negative); SARS-CoV-2 RNA PCR Negative (Negative)
[2025-09-21 20:09] LABS: Add Urine Microscopic? YES; Appearance Urine Turbid (Clear); Glucose Urine UA Negative (Negative); Leukocyte Esterase Ur 3+ LEU/UL (Negative); Need Manual Microscopic Reviewed; Nitrate Urine Positive (Negative); Specific Grav Ur 1.028 (1.001-1.035)
--- OUTSIDE RECORDS SUMMARY | 2025-09-21 20:39 | XMS_ITS | Clinical Summary ---
Author Organization [employer] work Address [address] [facility] [place] [address] Care Team Providers Care Net Lead Architect Name Role Phone Daviesesnoel Spivey CIRCUS TRAINER Primary Care Provider [phone] Allergies No known active allergies Medications * [...] or Vomiting. 60 tablet 3 1 Active ydgpgrt-dqab-kiebb acid 27 mg iron- 0.8 mg tablet Take ONE tablet by mouth daily. 90 tablet 3 1 Active Active Problems Patient Care Coordination No te Formatting of this note migh t be different from the original. 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 Insomnia 01/30/2018 Symptomatic cholelithiasis 01/30/2018 Overview (01/30/2018): Added automatically from request for surgery [id number] Vaginal discharge Hyperemesis affecting , antepartum Family [...] series) 2011 Pap Smear 03/15/2023 03/15/2020, 03/05/2017 Annual Adult Depression Screen 10/28/2024 Cervical Cancer Screening 03/15/2025 HPV 03/15/2025 03/15/2020 Pap and HPV (cotest) 03/15/2025 03/15/2020 COVID-19 Vaccine ( - 2024-2 6 season) 2025 Influenza Vaccine (#1) 2025 Tetanus/Pertussis Adult Vaccine (One-time Booster) Completed 12/09/2015 Hepatitis C Screening Completed 02/08/2021 Meningococcal Vaccine (MCV4) Aged Out No longer [...] None at this time Action taken by tire care manager: Enrolled in navigation program Procedures Procedure Name Priority Date/Time Associated Diagnosis Comments HEPATITIS C AB W/REFLEX Routine 02/08/2021 4:50 PM EDT Supervision of other normal PAP SMEAR Routine 03/15/2020 HM HPV Routine 03/15/2020 from Last 3 Months or Most Recently Relevant to Health Maintenance Results * Hepatitis C Antibody with Reflex (02/08/2021 4:50 PM EDT) Hepatitis C Ab Non Reactive Non Reactive 02/08/2021 9:29 PM EDT [facility] [employer] Comment: For Equivocal results - please submit another order and sample for testing in 14 days. Blood specimen (specimen) 02/08/2021 4:50 PM EDT 02/08/2021 8:24 PM EDT us Alicia Funk NP LAB BLOOD ORDERABLES Fi nal Result [facility] [address] [place] [address], [facility] [phone] * HPV (03/15/2020) HPV Negative Historical Provider MD HEALTH MAINTENANCE Final Result * PAP SMEAR (03/15/2020) Pap smear Negative Historical Provider HEALTH MAINTENANCE Final Result from Last 3 Months or Most Recently Relevant to Health Maintenance Insurance [facility] Care Teams Net Lead Architect Relationship Specialty Start Date End Date Ernestine Salazar NP [address] [place] [address] PCP - General Nurse Practitioner 07/16/18
--- OUTSIDE RECORDS SUMMARY | 2025-09-21 20:39 | XMS_ITS | Encounter Summary ---
Author Organization [employer] [facility] work Address [address] [place] [address] Care Team Providers Care Associate Professor Of Biology Name Role Phone Ernestine Salazar DIE MAKER Primary Care Provider [phone] Encounter Details Date Type Department Care Team ([facility] st Contact Info) Description 03/07/2020 Telephone Outpatient [facility] [address] [place] [address] Kodi Kaur LCSW [address] [facility] [place] [address] Social History Tobacco Use [...] PM EDT documented as of this encounter Functional Status * PHQ-A Total Score Answer Date of Assessment Author 6 03/09/2020 2:31 PM EDT Heaven Kaur LCSW * Question Answer Date of Assessment Author PHQ-9 Total Score 14 03/09/2020 2:31 PM EDT Kodi Kaur LCSW If you checked off any problems, how difficult have these problems made it for you to do your work, take care of things at home, or get along with other people? Very difficult 03/09/2020 2:31 PM EDT Milo Kaur LCSW * PHQ-A Total Score Answer Date of Assessment Author 6 03/09/2020 2:31 PM EDT Heaven Kaur LCSW * Question Answer Date of Assessment Author PHQ-9 Total Score 14 03/09/2020 2:31 PM EDT Kodi Kaur LCSW If you checked off any problems, how difficult have these problems made it for you to do your work, take care of things at home, or get along with other people? Very difficult 03/09/2020 2:31 PM EDT Milo Kaur LCSW documented as of this encounter Mental Status * PHQ-A Total Score Answer Entry Date Author 6 03/09/2020 2:31 PM EDT Heaven Kaur LCSW * Question Answer Entry Date Author PHQ-9 Total Score 14 03/09/2020 2:31 PM EDT Kodi Kaur LCSW If you checked off any problems, how difficult have these problems made it for you to do your work, take care of things at home, or get along with other people? Very difficult 03/09/2020 2:31 PM EDT Milo Kaur LCSW documented in this encounter Plan of Treatment Not on file documented as of this encounter Visit Diagnoses Not on filedocumented in this encounter Care Teams Associate Professor Of Biology Relationship Specialty Start Date End Date Ernestine Salazar NP [address] [place] [address] PCP - General Nurse Practitioner 07/16/18 documented as of this encounter
--- OUTSIDE RECORDS SUMMARY | 2025-09-21 20:39 | XMS_ITS | Encounter Summary ---
Author Organization [facility] work Address [address] [facility] [place] [address] Care Team Providers Care Director Of Leadership Development Name Role Phone Ernestine Salazar NP Primary Care Provider [phone] Reason for Visit * Reason Comments Medication Refill Encounter Details Date Type Department Care Team ([facility] st Contact Info) Description 07/02/2020 Refill Outpatient [facility] [address] [facility] [place] [address] Stephanie Jalloh, [facility] [address] [place] [address] Medication Refill Social History Tobacco [...] type documented in this encounter Care Teams Director Of Leadership Development Relationship Specialty Start Date End Date Ernestine Salazar NP [address] [place] [facility] [address] PCP - General Nurse Practitioner 07/16/18 documented as of this encounter
--- OUTSIDE RECORDS SUMMARY | 2025-09-21 20:39 | XMS_ITS | Clinical Summary ---
Author Organization [employer] - [address] [facility] [address] Address [address] [facility] [place] [address] Care Team Providers Care Filing Clerk Name Role Phone BashirErnestine LIUDMILA Primary Care Provider [phone] Allergies No known active allergies Medications * This document contains information received from the source organization and may not represent a complete record from that organization. topiramate (TOPAMAX) 25 MG tabletIndication s:FRANCISCO JAVIER (generalized anxiety disorder),Major depressive disorder, recurrent, moderate (HCC) Take ONE tablet by mouth in the morning and ONE tablet before bedtime. Take with 50 mg to equal 75 mg. 180 tablet 5 Active Additional Information Patient not taking.Reported on 06/16/2025 topiramate (TOPAMAX) 50 MG tabletIndication s:FRANCISCO JAVIER (generalized anxiety disorder),Major depressive disorder, recurrent, moderate (HCC) Take ONE tablet by mouth in the morning and ONE tablet before bedtime. Take with 25 mg tablet to make 75 mg. 180 tablet 5 04/23/20 26 Active Additional Information Patient not taking.Reported on 06/16/2025 sulfamethoxazole -trimethoprim (BACTRIM DS) 800-160 mg per tablet Take ONE tablet by mouth in the morning and ONE tablet before bedtime. 5 Active tamsulosin (FLOMAX) 0.4 mg 24 hr capsule Take ONE capsule by mouth in the morning. 5 Active HYDROcodone-acet aminophen (NORCO) 7.5-325 mg tabletIndication s:Ureteral stone,Hydronephr osis with urinary obstruction due to ureteral calculus,Left flank pain Take ONE tablet by mouth every 6 (six) hours as needed for Pain. 28 tablet 5 Active Active Problems Problem Noted Date Diagnosed Date Retained ureteral stent 06/16/2025 Kidney stones 06/16/2025 Pelvic pain in female 04/19/2025 History of 04/03/2021 Overview (04/03/2021): Added automatically from request for surgery [id number] Missed ab 09/29/2020 Overview (02/08/2021): Added automatically from request for surgery [id number] Mixed obsessional thoughts and acts 07/05/2020 Disease of skin and subcutaneous tissue 01/28/20 19 Generalized anxiety disorder 07/09/2018 Severe recurrent major depre ssion without psychotic features 07/09/2018 Cholecystitis 01/30/2018 MDD (major depressive disord er), recurrent severe, without psychosis 01/30/2018 FRANCISCO JAVIER (generalized anxiety disorder) 01/30/2018 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 Insomnia 01/30/2018 Vaginal discharge Hyperemesis affecting , antepartum COVID-19 Pneumonia due to COVID-19 virus Resolved Problems Problem Noted Date Diagnosed Date Resolved Date IUP (intrauterine ), incidental 08/04/2021 08/05/2022 Normal IUP (intrauterine pre gnancy) on ultrasound 06/13/2021 06/13/2022 Encounters Date Type Department Care Team Description 06/21/2025 Results Follow-Up [facility] [address] [place] [address] Radha Farr MA Urinalysis Dipstick Auto w/o Scope ([facility] ONLY), Urine Culture from Last 3 Months Immunizations Immunization Administration Dates Next Due HPV 9-Valent 01/17/2018 Influenza QIV (IM) 07/31/2021(Deferred: Patient Refused) Influenza,seasonal,injectable 10/12/2019 Td, Absorbed, Preservative F ree, Adult Use 05/23/2004 Tdap 07/12/2021, 1(Deferred: Parent/Guardian Refused),12/09/2015 Varicella 08/15/2004 Family History Medical History Relation Name Comments ADD / ADHD Brother Heart attack Father Stroke Father Cervical cancer Mother Asthma Sister Scoliosis Sister No Known Problems Son 1 No Known Problems Son 2 Breast cancer Neg Hx Colon cancer Neg Hx Diabetes Neg Hx Endometrial cancer Neg Hx Ovarian cancer Neg Hx Relation Name Status Comments Brother Alive Father Mother Sister Alive Son 1 Alive Son 2 Alive Social History Tobacco Use Types Packs/Day Years Used Date Smoking Tobacco: Former Cigarettes Q uit: 08/28/2020 Passive Smoke Exposure: Past Smokeless Tobacco: Never Tobacco Cessation:Counseling Given: Not Answered Alcohol Use Standard Drinks/Week Comments Not Currently 0 (1 standard drink = 0.6 oz pur e alcohol) B1300 Health Literacy Answer Date Recor ded How often do you need to hav e someone help you when you read instructions, pamphlets, or other written material from your doctor or pharmacy? Patient unable to respond 04/22/2024 [facility] Utilities Answer Date Recorded In the past 12 months has [employer] electric, gas, oil, or water Disconnect threatened to shut off services in your home? No 04/22/2024 Social Connection and Isolation Panel Answer Date Recorded In a typical week, how many times do you talk on the phone with family, friends, or neighbors? Three times a week 04/22/2024 How often do you get togethe r with friends or relatives? Once a week 04/22/2024 How often do you attend chur or rastafari services? Never 04/22/2024 Do you belong to any clubs o r organizations such as congregational groups, unions, fraternal or athletic groups, or school groups? No 04/22/2024 How often do you attend meet ings of the clubs or organizations you belong to? Never 04/22/2024 Are you , , di vorced, , never , or living with a partner? Never 04/22/2024 AUDIT-C Answer Date Recorded Q1: How often do you have a drink containing alc ohol? Monthly or less 04/22/2024 Q2: How many drinks containi ng alcohol do you have on a typical day when you are drinking? 1 or 2 04/22/2024 Q3: How often do you have si x or more drinks on one occasion? Less than monthly 04/22/2024 Overall Financial Resource Strain (CARDIA) Answe r Date Recorded How hard is it for you to pa y for the very basics like food, housing, medical care, and heating? Somewhat hard 04/22/2024 [facility] [place] of Occupat ional [facility] - Occupational Stress Questionnaire Answer Date Recorded Do you feel stress - tense, restless, nervous, or anxious, or unable to sleep at night because your mind is troubled all the time - these days? To some extent 04/22/2024 Exercise Vital Sign Answer Date Recorde d On average, how many days pe r week do you engage in moderate to strenuous exercise (like a brisk walk)? 4 days 04/22/2024 On average, how many minutes do you engage in exercise at this level? 60 min 04/22/2024 Hunger Vital Sign Answer Date Recorded Within the past 12 months, y ou worried that your food would run out before you got the money to buy more. Patient declined Within the past 12 months, t he food you bought just didn't last and you didn't have money to get more. Never true PRAPARE - Transportation Answer Date Re corded In the past 12 months, has l ack of transportation kept you from medical appointments or from getting medications? No 03/29 In the past 12 months, has l ack of transportation kept you from meetings, work, or from getting things needed for daily living? No 04/22/2024 [place] Depression Scale Answer Date Recorded [place] Depression Scale Total 7 09/29/2021 The thought of harming myself has occurred to me . Never 09/29/2021 Housing Stability Vital Sign Answer Merlin e Recorded In the last 12 months, was t here a time when you were not able to pay the mortgage or rent on time? No 04/22/2024 In the past 12 months, how m any times have you moved where you were living? 0 04/22/2024 At any time in the past 12 m [facility], were you homeless or living in a detention (including now)? No 04/22/2024 Comments No Sex and Gender Information Value Date Recorded Sex Assigned at Female 01/24/2021 2:14 PM EDT Legal Sex Female 12:07 AM EDT Gender Identity Female 01/24/2021 2:14 PM EDT Sexual Orientation Straight 06/13/2021 5: 24 PM EDT Last Filed Vital Signs Vital Sign Reading Time Taken Comments Blood Pressure 104/76 06/16/2025 10:01 AM EDT Pulse 103 06/16/2025 10:01 AM EDT Temperature 36.4 C (97.5 F) 05/12/2025 11:45 AM EDT Respiratory Rate 22 05/12/2025 11:50 AM EDT Oxygen Saturation 99% 06/16/2025 10:01 AM EDT Inhaled Oxygen Concentration - - Weight 63.5 kg (140 lb) 06/21/2025 1:56 PM EDT Height 157.5 cm (5' 2) 06/21/2025 1:56 PM EDT Body Mass Index 25.61 06/21/2025 1:56 PM EDT Plan of Treatment Health Maintenance Due Date Last Done Comments HPV VACCINES (2 - 3-dose series) 02/14/2018 01/17/2018 COVID-19 Vaccine ( season) 2025 INFLUENZA VACCINE (#1) 2025 10/12/2019 Pap Smear (Cervical Cancer Screening) 04/28/2027 04/28/2024, 02/08/2021, 03/15/2020, Additional history exists Cervical Cancer Screening 04/28/2029 HPV 04/28/2029 04/28/2024, 02/25, 03/15/2020 Pap and HPV (cotest) 04/28/2029 04/28/2024, 03/15/2020, 03/15/2020 Hepatitis C Screening Completed 05/12/2025 , 04/28/2024, 08/12/2023, Additional history exists HEPATITIS A VACCINES Aged Out No long er eligible based on patient's age to complete this topic Meningococcal B Vaccine Aged Out No l onger eligible based on patient's age to complete this topic Pneumococcal Vaccine: Pediatrics (0 to 5 Years) and At-Risk Patients (6 to 49 Years) Aged Out No longer eligible based on patient's age to complete this topic Procedures Procedure Name Priority Date/Time Associated Diagnosis Comments HEPATITIS C AB W/REFLEX Routine 05/12/2025 7:44 AM EDT Screening for STD (sexually transmitted disease) SYPHILIS SCREEN Routine 05/12/2025 7:44 AM EDT Screening for STD (sexually transmitted disease) PAP TEST/SMEAR Routine 04/28/2024 10:59 AM EDT Screening for cervical cancer HPV DNA HIGH RISK Routine 04/28/2024 10: 59 AM EDT Screening for cervical cancer from Last 3 Months or Most Recently Relevant to Health Maintenance Results * Hepatitis C Ab w/reflex (05/12/2025 7:44 AM EDT) Hepatitis C Ab Non Reactive Non Reactive 05/12/2025 12:12 PM EDT Comment: For Equivocal results - please submit another order and sample for testing in 14 days. Blood 05/12/2025 7:44 AM EDT 05/12/2025 7:44 AM EDT Coral Vela MD LAB BLOOD ORDERABLE S Final Result Performing Organization Address [facility]/ZIP Co de Phone Number [facility] [address] [place] [address] * Syphilis Screen (05/12/2025 7:44 AM EDT) Syphilis Treponemal Ab Non-Reacti ve Non-Reacti ve 05/12/2025 12:07 PM EDT Blood 05/12/2025 7:44 AM EDT 05/12/2025 7:54 AM EDT Coral Vela MD LAB BLOOD ORDERABLE S Final Result [facility] [address] [phone] * HPV DNA High Risk (04/28/2024 10:59 AM EDT) HPV PCR Assay Negative 04/30/2024 2:04 PM EDT Comment: The high-risk HPV types detected by this assay include: 16, 18, 31, 33, 35, 39, 45, 51, 52, 56,58, 59, 66, and 68. HPV High Risk assay is a qualitative test and does not discriminate between the 14 high-risk types. Body Fluid SPECIMEN FROM UTERINE CERVIX / Unknown 04/28/2024 10:59 AM EDT 04/28/2024 11:32 AM EDT us Coral Vela MD MICRO BODY FLUIDS A ND STOOLS ORDERABLES Final Result [facility] [employer] [address] [place] [address] * Pap Test / Smear (04/28/2024 10:59 AM EDT) Signal Manager Final Report Patient: ARABELLA TRISTAN Received Date Collected Date Accession Number 04/29/2024 07:34 EDT 04/28/2024 10:59 EDT [id number] Signal Manager Cytology Final Report - 04/29/2024 13:42 EDT Clinical Information Date of LMP: None Provided Menstrual History: None Provided Risk Factors: (Z12.4) Encounter for screening for malignant neoplasm of cervix Specimen Source ThinPrep: Vaginal/Cervical/En docervical Interpretation of Adequacy Satisfactory for evaluation Endocervical/transf ormation zone present. Interpretation of Diagnosis Epithelial cell abnormalities: Squamous cell (code R87.612) Low-grade squamous intraepithelial lesion (LSIL) encompassing: human papillomavirus/mild dysplasia/cervical intraepithelial neoplasia (VALARIE I) Poultry Hatchery Manager:DANYA Oconnell(ASCP), NRS 04/29/2024 Completed by: Luis Seo M.D. FCAP (Electronically signed) 04/29/2024 Comment This Pap test was evaluated with the assistance of the ThinPrep Pap Test Imaging System. In addition, a comprehensive manual rescreening by a Poultry Hatchery Manager was performed. Note: The Pap is a screening test with an inherent, but low, false positive and false negative risk. Clinical correlation and patient compliance can help to increase the power of the test. [facility] Cervical 04/28/2024 10:5 9 AM EDT 04/28/2024 11:31 AM EDT us Coral Vela MD PATHOLOGY/CYTOLOGY ORDERABLES Final Result [facility] [address] [place], [place] [address] [phone] from Last 3 Months or Most Recently Relevant to Health Maintenance Insurance [facility] PPO OR PPN Care Teams Filing Clerk Relationship Specialty Start Date End Date Ernestine Camejo NP PCP - General 07/16/18
--- OUTSIDE RECORDS SUMMARY | 2025-09-21 20:39 | XMS_ITS | Encounter Summary ---
Author Organization [facility] work Address [address] [place] [address] Care Team Providers Care Seat Installer Name Role Phone Ernestine Salazar HEAD OF VISUAL MERCHANDISING Primary Care Provider [phone] Reason for Visit * Reason Comments Medication Refill Encounter Details Date Type Department Care Team ([facility] st Contact Info) Description 12/13/2020 Refill Outpatient [facility] [address] [place] [address] Stephanie Jalloh, [facility] [address] [place] [address] Medication Refill Social History [...] acts documented in this encounter Care Teams Seat Installer Relationship Specialty Start Date End Date Ernestine Salazar NP [address] [place] [address] PCP - General Nurse Practitioner 07/16/18 documented as of this encounter
--- OUTSIDE RECORDS SUMMARY | 2025-09-21 20:39 | XMS_ITS | Encounter Summary ---
Author Organization [employer] work Address [address] [place] [address] Care Team Providers Care Wax Molder Name Role Phone Ernestine Salazar TRAVEL PHYSICAL THERAPIST Primary Care Provider [phone] Encounter Details Date Type Department Care Team (Late st Contact Info) Description 08/29/2018 Orders Only [facility] [address] [place] [id number] [phone] Referral, Self No Address on File [...] 5 eScreen Complete 08/29/2018 8:03 PM EDT [employer] Urine specimen (specimen) 08/29/2018 12:50 PM EDT 08/29/2018 6:51 PM EDT us Self Referral URINE ORDERABLES Final Result [email or web address] [address] [place], [place] [address] [phone] documented in this encounter Visit Diagnoses Diagnosis Encounter for employment-related drug testing- Primary documented in this encounter Care Teams Wax Molder Relationship Specialty Start Date End Date Ernestine Salazar NP [address] [place] [address] PCP - General Nurse Practitioner 07/16/18 documented as of this encounter
--- OUTSIDE RECORDS SUMMARY | 2025-09-21 20:39 | XMS_ITS | Encounter Summary ---
Author Organization [facility] work Address [address] [place] [address] Care Team Providers Care Chief Warden Name Role Phone MartinErnestine Patric APPRENTICE JOCKEY Primary Care Provider [phone] Encounter Details Date Type Department Care Team ([facility] st Contact Info) Description 03/01/2020 Telephone Outpatient [facility] [address] [facility] [place] [address] Stephanie Jalloh, [facility] [address] [place] [address] Social History Tobacco Use Types [...] as of this encounter Functional Status * Question Answer Date of Assessment Author Eye Opening 4 03/01/2020 2:45 PM EDT Helga Shaver RN Best Motor Response 6 03/01/2020 2:45 PM ED T Helga Collins RN Best Verbal Response 5 03/01/2020 2:45 PM E DT Helga Collins RN Mary Coma Scale Score 15 03/01/2020 2:45 PM EDT Helga Collins RN * Riley Fall Risk Scale Question Answer Date of Assessment Author History of Falling: Has the patient fallen anytime in the past 2 months or in the hospital? 0 03/01/2020 2:46 PM EDT Helga Collins RN Secondary Diagnosis:Is there more than one medical condition listed on the patients chart? 0 03/01/2020 2:46 PM EDT Baylee Collins RN Ambulatory Aids: Visual asse ssment required mobility 0 03/01/2020 2:46 PM EDT Helga Collins RN Intravenous Therapy/Saline L ock: Is the patient receiving IV medications or fluids? 0 03/01/2020 2:46 PM EDT Baylee Collins RN Gait/ Transferring: Does thi s match the mobility assessment for the patient? 0 03/01/2020 2:46 PM EDT Helga Collins RN Mental Status: Does the yudi ent know that they need help to go to the bathroom? 0 03/01/2020 2:46 PM EDT Helga Collins RN Score 0 03/01/2020 2:46 PM EDT Helga Shaver RN * Question Answer Date of Assessment Author Height 62 03/01/2020 2:45 PM EDT Helga Shaver RN Weight 2884.8 03/01/2020 2:59 PM EDT Sandra Pino RN * Risk for Suicide: Answer Date of Assessment Author No Risk 03/01/2020 3:30 PM EDT Keerthi Sethi RN * Question Answer Date of Assessment Author BP 122/78 03/01/2020 5:18 PM EDT Sandra Pino RN Temp 98.9 03/01/2020 2:43 PM EDT Helga Shaver RN Pulse 94 03/01/2020 5:18 PM EDT Sandra Pino RN Resp 18 03/01/2020 5:18 PM EDT Sandra Pino RN SpO2 97 03/01/2020 5:18 PM EDT Sandra Pino RN Pain Score 0-No pain 03/01/2020 2:43 PM EDT Helga Shaver RN * PHQ-A Total Score Answer Date of Assessment Author 3 03/01/2020 9:58 AM EDT Gilbert Ramirez CMA * Question Answer Date of Assessment Author PHQ-9 Total Score 8 03/01/2020 9:58 AM EDT Sandra Ramirez CMA * Question Answer Date of Assessment Author 1. In the past 30 days, have you Wished to be ? No 03/01/2020 3:30 PM EDT Sandra Sethi RN 2. In the past 30 days, have you had Suicidal Thoughts? No 03/01/2020 3:30 PM EDT Sarah Sethi RN 6. Suicide Behavior Question: No 03/01/2020 3:30 PM EDT Sandra Sethi RN * Question Answer Date of Assessment Author Eye Opening 4 03/01/2020 2:45 PM EDT Helga Shaver RN Best Motor Response 6 03/01/2020 2:45 PM ED T Helga Collins RN Best Verbal Response 5 03/01/2020 2:45 PM E DT Helga Collins RN [place] Coma Scale Score 15 03/01/2020 2:45 PM EDT Helga Collins RN * Riley Fall Risk Scale Question Answer Date of Assessment Author History of Falling: Has the patient fallen anytime in the past 2 months or in the hospital? 0 03/01/2020 2:46 PM EDT Helga Collins RN Secondary Diagnosis:Is there more than one medical condition listed on the patients chart? 0 03/01/2020 2:46 PM EDT Baylee Collins RN Ambulatory Aids: Visual asse ssment required mobility 0 03/01/2020 2:46 PM EDT Helga Collins RN Intravenous Therapy/Saline L ock: Is the patient receiving IV medications or fluids? 0 03/01/2020 2:46 PM EDT Baylee Collins RN Gait/ Transferring: Does thi s match the mobility assessment for the patient? 0 03/01/2020 2:46 PM EDT Helga Collins RN Mental Status: Does the yudi ent know that they need help to go to the bathroom? 0 03/01/2020 2:46 PM EDT Helga Collins RN Score 0 03/01/2020 2:46 PM EDT Helga Shaver RN * Question Answer Date of Assessment Author Height 62 03/01/2020 2:45 PM EDT Helga Shaver RN Weight 2884.8 03/01/2020 2:59 PM EDT Sandra Pino RN * Risk for Suicide: Answer Date of Assessment Author No Risk 03/01/2020 3:30 PM EDT Keerthi Sethi RN * Question Answer Date of Assessment Author BP 122/78 03/01/2020 5:18 PM EDT Sandra Pino RN Temp 98.9 03/01/2020 2:43 PM EDT Helga Dennis RN Pulse 94 03/01/2020 5:18 PM EDT Sandra Pino RN Resp 18 03/01/2020 5:18 PM EDT Sandra Pino RN SpO2 97 03/01/2020 5:18 PM EDT Sandra Pino RN Pain Score 0-No pain 03/01/2020 2:43 PM EDT Helga Shaver RN * PHQ-A Total Score Answer Date of Assessment Author 3 03/01/2020 9:58 AM EDT Gilbert Ramirez CMA * Question Answer Date of Assessment Author PHQ-9 Total Score 8 03/01/2020 9:58 AM EDT Sandra Ramirez CMA * Question Answer Date of Assessment Author 1. In the past 30 days, have you Wished to be ? No 03/01/2020 3:30 PM EDT Sandra Sethi RN 2. In the past 30 days, have you had Suicidal Thoughts? No 03/01/2020 3:30 PM EDT Sarah Sethi RN 6. Suicide Behavior Question: No 03/01/2020 3:30 PM EDT Sandra Sethi RN documented as of this encounter Mental Status * Question Answer Entry Date Author Eye Opening 4 03/01/2020 2:45 PM EDT Helga Shaver RN Best Motor Response 6 03/01/2020 2:45 PM ED T Helga Collins RN Best Verbal Response 5 03/01/2020 2:45 PM E DT Helga Collins RN [place] Coma Scale Score 15 03/01/2020 2:45 PM EDT Helga Collins RN * Riley Fall Risk Scale Question Answer Entry Date Author History of Falling: Has the patient fallen anytime in the past 2 months or in the hospital? 0 03/01/2020 2:46 PM EDT Helga Collins RN Secondary Diagnosis:Is there more than one medical condition listed on the patients chart? 0 03/01/2020 2:46 PM EDT Baylee Collins RN Ambulatory Aids: Visual asse ssment required mobility 0 03/01/2020 2:46 PM EDT Helga Collins RN Intravenous Therapy/Saline L ock: Is the patient receiving IV medications or fluids? 0 03/01/2020 2:46 PM EDT Baylee Collins RN Gait/ Transferring: Does thi s match the mobility assessment for the patient? 0 03/01/2020 2:46 PM EDT Helga Collins RN Mental Status: Does the yudi ent know that they need help to go to the bathroom? 0 03/01/2020 2:46 PM EDT Helga Collins RN Score 0 03/01/2020 2:46 PM EDT Helga Shaver RN * Question Answer Entry Date Author Height 62 03/01/2020 2:45 PM EDT Helga Shaver RN Weight 2884.8 03/01/2020 2:59 PM EDT Sandra Pino RN * Risk for Suicide: Answer Entry Date Author No Risk 03/01/2020 3:30 PM EDT Keerthi Sethi RN * Question Answer Entry Date Author BP 122/78 03/01/2020 5:18 PM EDT Sandra Pino RN Temp 98.9 03/01/2020 2:43 PM EDT Helga Shaver RN Pulse 94 03/01/2020 5:18 PM EDT Sandra Pino RN Resp 18 03/01/2020 5:18 PM EDT Sandra Pino RN SpO2 97 03/01/2020 5:18 PM EDT Sandra Pino RN Pain Score 0-No pain 03/01/2020 2:43 PM EDT Helga Shaver RN * PHQ-A Total Score Answer Entry Date Author 3 03/01/2020 9:58 AM EDT Gilbert Ramirez CMA * Question Answer Entry Date Author PHQ-9 Total Score 8 03/01/2020 9:58 AM EDT Sandra Ramirez CMA * Question Answer Entry Date Author 1. In the past 30 days, have you Wished to be ? No 03/01/2020 3:30 PM EDT Sandra Sethi, HEATHER 2. In the past 30 days, have you had Suicidal Thoughts? No 03/01/2020 3:30 PM EDT Sarah Sethi RN 6. Suicide Behavior Question: No 03/01/2020 3:30 PM EDT Sandra Sethi, HEATHER documented in this encounter Plan of Treatment Not on file documented as of this encounter Visit Diagnoses Not on filedocumented in this encounter Care Teams Chief Warden Relationship Specialty Start Date End Date Ernestine Salazar NP [address] [place] [address] PCP - General Nurse Practitioner 07/16/18 documented as of this encounter
--- OUTSIDE RECORDS SUMMARY | 2025-09-21 20:39 | XMS_ITS | Encounter Summary ---
Author Organization [facility] work Address [address] [place] [address] Care Team Providers Care Gas Burner Operator Name Role Phone Ernestine Salazar GAS TURBINE POWERPLANT MECHANIC HELPER Primary Care Provider [phone] Reason for Visit * Reason Comments Medication Refill Encounter Details Date Type Department Care Team ([facility] st Contact Info) Description 04/07/2020 Refill Outpatient [facility] [address] [place] [address] Stephanie Jalloh, [facility] [address] [place] [address] Medication Refill Social History [...] disorder documented in this encounter Care Teams Gas Burner Operator Relationship Specialty Start Date End Date Ernestine Salazar NP [address] [place] [address] PCP - General Nurse Practitioner 07/16/18 documented as of this encounter
--- OUTSIDE RECORDS SUMMARY | 2025-09-21 20:39 | XMS_ITS | Encounter Summary ---
Author Organization Formerly [facility], [facility] work Address [address] [place] [address] Care Team Providers Care Hoop Maker Helper Machine Name Role Phone Ernestine Salazar COMMUNITY RESOURCE CONSULTANT Primary Care Provider [phone] Reason for Visit * Reason Comments Medication Refill Encounter Details Date Type Department Care Team (Late st Contact Info) Description 11/19/2020 Refill Outpatient [facility] [place] [address] [place] [address] Stephanie Jalloh, [facility] [address] [place] [id number] Medication Refill Social History Tobacco Use Types [...] type documented in this encounter Care Teams Hoop Maker Helper Machine Relationship Specialty Start Date End Date Ernestine Salazar NP [address] [facility] [place] [address] PCP - General Nurse Practitioner 07/16/18 documented as of this encounter
--- OUTSIDE RECORDS SUMMARY | 2025-09-21 20:39 | XMS_ITS | Encounter Summary ---
Author Organization [facility] Facility Care Team Providers Care Construction Grip Name Role Phone BashirErnestine GRID INSPECTOR Primary Care Provider [phone] Encounter Details Date Type Department Care Team (Latest Contact Info) Description 06/17/2021 IHIE Encounter IHIE Autosign, Doctor No Address on File Social History Tobacco Use Types Packs/Day Years Used Date Smoking Tobacco: Former Cigarettes Q uit: 08/28/2020 Smokeless Tobacco: Never Alcohol Use Standard Drinks/Week Comments Not Currently 0 (1 standard drink = 0.6 oz pur e alcohol) Comments Yes Sex and Gender Information Value Date Recorded Sex Assigned at Female 01/24/2021 2:14 PM EDT Legal Sex Female 12:07 AM EDT Gender Identity Female 01/24/2021 2:14 PM EDT Sexual Orientation Straight 06/13/2021 5: 24 PM EDT COVID-19 Exposure Response Date Recorded In the last month, have you been in contact with someone who was confirmed or suspected to have Coronavirus / COVID-19? Yes 06/13/2021 5:22 PM EDT documented as of this encounter Progress Notes * Doctor Autosign - 06/27/2021 1:49 PM EDT This final report originated from an external system. Edits and Signatures are only valid in the legal medical record. IHIE: Hospital Discharge Summary [id number] Report: Natural Gas Technician (ASV) [facility]: ARABELLA TRISTAN MR NUMBER: [id number] REG NUMBER: [id number] DATE OF : 1990 DATE OF ADMISSION: 06/16/2021 DATE OF DISCHARGE: 06/22/2021 DATE OF SERVICE: PATIENT LOCATION: DICTATOR: Sarah La MD DICTATION DATE: 06/26/2021 DICTATION TIME: 07 22 PM TRANS DT and TM: 06/27/2021 01 49 PM JOB NUMBER: [id number] TRANS BY: R1 STATUS: NEW HOSP. DISCHARGE SUMMARY cc: Sarah Anthony MD Adm: Fausto Baker M.D. Att: Fausto Baker M.D. Ref: Ernestine Obando NP ATTENDING PHYSICIAN: Fausto Baker MD CONSULTING PHYSICIANS: Adult Internal Medicine Service. ADMITTING SERVICE: Center for diagnoses. REFERRING PHYSICIAN: Dr. Anthony at [facility]. ADMITTING DIAGNOSES: 1. A 30-year-old G3, P1-0-1-1 at 32+0 weeks' gestation. 2. COVID-19 pneumonia. 3. History of x 1. 4. Migraines. 5. Depression and anxiety. DISCHARGE DIAGNOSES: 1. A 30-year-old G3, P1-0-1-1 at 32+6 weeks' gestation. 2. COVID-19 pneumonia. 3. History of x 1. 4. Migraines. 5. Depression and anxiety. 6. Transaminitis. PROCEDURES PERFORMED: None. DIET: As tolerated. ACTIVITY: As tolerated. PRESCRIPTION MEDICATIONS: 1. Cefuroxime 500 mg 1 tab orally 2 times per day until June 23. 2. Dexamethasone 6 mg 1 tab orally once a day until June 27. HOME MEDICATIONS: 1. vitamin. 2. Zofran as needed. DISCHARGE INSTRUCTIONS: Patient to follow up with her primary SODA COLUMN OPERATOR for routine care. LABORATORY STUDIES: 1. June 16, 2021. Admission labs: White blood cell count 6.2, hemoglobin 10.8, platelets 151, protein to creatinine ratio 0.35, creatinine 0.60, LDH 342, AST 47, ALT 36. GBS negative. 2. June 21, 2021, discharge labs: White blood cell count 9.5, hemoglobin 10.2, platelets 323, creatinine 0.40, AST 86, ALT 70. RADIOLOGIC STUDIES: 1. June 16, chest x-ray: Left basilar parenchymal opacities concerning for pneumonia. 2. June 17 chest x-ray: Minimally increased bilateral patchy infiltrates. 3. June 17, venous ultrasound: Negative for DVT in left lower extremity. HOSPITAL COURSE: Briefly, the patient is a 30-year-old G3, P1-0-1-1, who originally presented at 32+0 weeks' gestation dated by last menstrual period equal to a 6-week ultrasound for COVID-19 pneumonia. She had a positive test on June 08, 2021. She had been monitored at [facility] and instructed to monitor oxygen at home. She presented to the emergency room for dehydration and nausea and was transferred to [place] for further care. Chest x-ray at [place] showed a left lower lobe infiltrate and labs were unremarkable. On admission, she was comfortable on room air. Internal Medicine was consulted for assistance and started her on Zithromax and Rocephin for possible impose community acquired pneumonia. Infectious Disease was also aware and patient agreed to plan, but was not formally consulted. Her respiratory status did worsen to the point of requiring 5 liters oxygen. heart rate tracing remained reactive and reassuring. She had a normal growth ultrasound on May 2020 with an estimated weight in the 67th percentile and had received dexamethasone for lung maturity. She had normal blood pressures throughout her admission and there were no signs of preeclampsia. Transaminitis was thought to be due to remdesivir. She was able to be weaned to room air for approximately 1 day, but then required 3 liters again as of June 22. She adamantly desired discharge and left against medical advice on June 22, 2021. She was continued on Decadron until June 27 and cefuroxime until June 23 and instructed to follow up with primary SODA COLUMN OPERATOR as soon as possible. DISPOSITION: Left in stable condition against medical advice. Advised to follow up with primary SODA COLUMN OPERATOR outpatient. Sarah La MD documented in this encounter Procedure Notes * Doctor Autosign - 06/17/2021 3:38 PM EDTAssociated Order(s): HIE RADIOLOGY REPORT This final report originated from an external system. Edits and Signatures are only valid in the legal medical record. IHIE: VENOUS IMAGING UNI/LTD ORDERED BY: JAYASHREE VASQUEZ (Non-Network) [id number] Report: Radiology (ASV Womens) Pt: ARABELLA TRISTAN MR#: [id number] : 1990 Sex: F REG#: [id number] RM#: [id number] 4HR Ordered by: JAYASHREE VASQUEZ Department of Medical Imaging Adm Date: 06/17/2021 Pt ID: Adm Dx: 32WKS COVID POSITIVE TRANSPORT FROM [facility] Reason: SOB Shortness of breath; Comments: Left Leg; EXAMINATION: VENOUS IMAGING UNI/LTD - ACC #: CPT: 24645 Mod: RIS Order: [id number] (USW) (010) HIS Order:[id number] STARTED: COMPLETED: Jun 17 2021 3:38PM TECH INITIALS: FULL RESULT: STUDY: Ultrasound evaluation with Doppler interrogation of the left lower extremity venous system for evaluation of DVTs INDICATION: Shortness of breath Comparison: None FINDINGS: The common femoral, superficial femoral, profunda and popliteal veins demonstrate normal directional blood flow, respond appropriately to augmentation/compression and have normal Doppler signal. There is no evidence of filling defect or noncompressible appearance to suggest underlying in DVT. The visualized calf veins are patent. IMPRESSION: No evidence of deep vein thrombosis in the left lower extremity. ELECTRONICALLY SIGNED BY: JESSICA CLARK M.D. Jun 17 2021 3:38PM Dictated: Jun 17 2021 3:38PM RMD Transcribed: Jun 17 2021 3:38PM Dispersed: Jun 17 2021 3:38PM Attending Dr: JAYASHREE VASQUEZ Admitting Dr: FAUSTO BAKER Primary Care: ERNESTINE OBANDO Additional Doctor(s): ELECTRONICALLY SIGNED BY: JESSICA CLAKR M.D.Jun 17 2021 3:38PM * Doctor Autosign - 06/17/2021 11:26 AM EDTAssociated Order(s): HIE RADIOLOGY REPORT This final report originated from an external system. Edits and Signatures are only valid in the legal medical record. IHIE: CHEST BEDSIDE ORDERED BY: BRANDYN BRUCE (Non-Network) [id number] Report: Radiology (ASV Womens) Pt: ARABELLA TRISTAN MR#: [id number] : 1990 Sex: F REG#: [id number] RM#: [id number] 4HR Ordered by: BRANDYN BRUCE Department of Medical Imaging Adm Date: 06/17/2021 Pt ID: Adm Dx: 32WKS COVID POSITIVE TRANSPORT FROM [facility] Reason: SOB (Shortness of Breath); Comments: COVID + on 5L EXAMINATION: CHEST BEDSIDE - ACC #: [id number] CPT: 66503 Mod: RIS Order: [id number] (XRW) (0025) HIS Order:[id number] STARTED: Jun 17 2021 11:00AM COMPLETED: Jun 17 2021 11:26AM TECH INITIALS: TLJ FULL RESULT: EXAM: AP portable chest TECHNIQUE: One image(s). INDICATION: Shortness of breath. Covid positive. 32 weeks . COMPARISON: June 16, 2021 FINDINGS: Heart size is normal. Patchy bilateral infiltrates are slightly increased since yesterday especially in the left upper lung. No pneumothorax or pleural effusion. IMPRESSION: Minimally increased bilateral patchy infiltrates since yesterday. ELECTRONICALLY SIGNED BY: LACI RIOS M.D. Jun 17 2021 11:41AM Dictated: Jun 17 2021 11:40AM CCA1 Transcribed: Jun 17 2021 11:40AM Dispersed: Jun 17 2021 11:41AM Attending Dr: BRANDYN BRUCE Admitting Dr: FAUSTO BAKER Primary Care: ERNESTINE OBANDO Additional Doctor(s): ELECTRONICALLY SIGNED BY: LACI RIOS M.D.Jun 17 2021 11:41AM * Doctor Autosign - 06/16/2021 8:17 AM EDTAssociated Order(s): HIE RADIOLOGY REPORT This final report originated from an external system. Edits and Signatures are only valid in the legal medical record. IHIE: CHEST BEDSIDE ORDERED BY: SARAH YEAGER (Non-Network) [id number] Report: Radiology (ASV Womens) Pt: ARABELLA TRISTAN MR#: [id number] : 1990 Sex: F REG#: [id number] #: [id number] 4HR Ordered by: SARAH YEAGER Department of Medical Imaging Adm Date: 06/16/2021 Pt ID: Adm Dx: 32WKS COVID POSITIVE TRANSPORT FROM [facility] Reason: Pneumonia; Comments: COVID+ EXAMINATION: CHEST BEDSIDE - ACC #: [id number] CPT: 86917 Mod: RIS Order: [id number] (XRW) (0025) HIS Order:[id number] STARTED: Jun 16 2021 7:56AM COMPLETED: Jun 16 2021 8:17AM TECH INITIALS: JACLYN FULL RESULT: INDICATION: Pneumonia; EXAM: CHEST BEDSIDE COMPARISON: None available. TECHNIQUE: Single view chest. Findings: Cardiac and mediastinal contours are within normal limits. Left basilar parenchymal opacities. Right lung is clear. Impression: Left basilar parenchymal opacities concerning for pneumonia. ELECTRONICALLY SIGNED BY: YE FROST M.D. Jun 16 2021 8:39AM Dictated: Jun 16 2021 8:38AM MS9 Transcribed: Jun 16 2021 8:38AM Dispersed: Jun 16 2021 8:39AM Attending Dr: SARAH YEAGER Admitting Dr: FAUTSO BAKER Primary Care: ERNESTINE OBANDO Additional Doctor(s): ELECTRONICALLY SIGNED BY: YE FROST M.D.Jun 16 2021 8:39AM documented in this encounter Plan of Treatment Not on file documented as of this encounter Procedures Procedure Name Priority Date/Time Associated Diagnosis Comments [facility] RADIOLOGY REPORT 06/17/2021 3:38 PM EDT [facility] RADIOLOGY REPORT 06/17/2021 11:26 AM EDT [facility] RADIOLOGY REPORT 06/16/2021 8:17 AM EDT documented in this encounter Results * [facility] RADIOLOGY REPORT (06/17/2021 3:38 PM EDT) Anatomical Region Laterality Modality Other Narrative Procedure Note Doctor Autosign - 06/17/2021 3:38 PM EDT This final report originated from an external system. Edits and Signatures are only valid in the legal medical record. IHIE: VENOUS IMAGING UNI/LTD ORDERED BY: JAYASHREE VASQUEZ (Non-Network) [id number] Report: Radiology (ASV Womens) Pt: ARABELLA TRISTAN MR#: [id number] : 1990 Sex:F REG#: [id number] RM#: [id number] 4HR Ordered by: JAYASHREE VASQUEZ Department of Medical Imaging Adm Date: 06/17/2021 Pt ID: Adm Dx: 32WKS COVID POSITIVE TRANSPORT FROM [facility] Reason: SOB Shortness of breath; Comments: Left Leg; EXAMINATION: VENOUS IMAGING UNI/LTD - ACC #: CPT: [id number] Mod: RIS Order: [id number] (USW) (0101) HIS Order:[id number] STARTED: COMPLETED: Jun 17 2021 3:38PM TECH INITIALS: FULL RESULT: STUDY: Ultrasound evaluation with Doppler interrogation of the left lower extremity venous system for evaluation of DVTs INDICATION: Shortness of breath Comparison: None FINDINGS: The common femoral, superficial femoral, profunda and popliteal veins demonstrate normal directional blood flow, respond appropriately to augmentation/compression and have normal Doppler signal. There is no evidence of filling defect or noncompressible appearance to suggest underlying in DVT. The visualized calf veins are patent. IMPRESSION: No evidence of deep vein thrombosis in the left lower extremity. ELECTRONICALLY SIGNED BY: JESSICA CLARK M.D. Jun 17 2021 3:38PM Dictated: Jun 17 2021 3:38PM RMD Transcribed: Jun 17 2021 3:38PM Dispersed: Jun 17 2021 3:38PM Attending Dr: JAYASHREE VASQUEZ Admitting Dr: FAUSTO BAKER Primary Care: ERNESTINE OBANDO Additional Doctor(s): ELECTRONICALLY SIGNED BY: JESSICA CLARK M.D.Jun 17 2021 3:38PM Doctor Autosign [id number] Final Result * HIE RADIOLOGY REPORT (06/17/2021 11:26 AM EDT) Anatomical Region Laterality Modality Other Narrative Procedure Note Doctor Autosign - 06/17/2021 11:26 AM EDT This final report originated from an external system. Edits and Signatures are only valid in the legal medical record. IHIE: CHEST BEDSIDE ORDERED BY: BRANDYN BRUCE (Non-Network) [id number] Report: Radiology (ASV Womens) Pt: ARABELLA TRISTAN MR#: [id number] : 1990 Sex:F REG#: [id number] RM#: [id number] 4HR Ordered by: BRANDYN BRUCE Department of Medical Imaging Adm Date: 06/17/2021 Pt ID: Adm Dx: 32WKS COVID POSITIVE TRANSPORT FROM [facility] Reason: SOB (Shortness of Breath); Comments: COVID + on 5L EXAMINATION: CHEST BEDSIDE - ACC #: [id number] CPT: 31661 Mod: RIS Order: [id number] (XRW) (0025) HIS Order:[id number] STARTED: Jun 17 2021 11:00AM COMPLETED: Jun 17 2021 11:26AM TECH INITIALS: TLJ FULL RESULT: EXAM: AP portable chest TECHNIQUE: One image(s). INDICATION: Shortness of breath. Covid positive. 32 weeks . COMPARISON: June 16, 2021 FINDINGS: Heart size is normal. Patchy bilateral infiltrates are slightly increased since yesterday especially in the left upper lung. No pneumothorax or pleural effusion. IMPRESSION: Minimally increased bilateral patchy infiltrates since yesterday. ELECTRONICALLY SIGNED BY: LACI RIOS M.D. Jun 17 2021 11:41AM Dictated: Jun 17 2021 11:40AM CCA1 Transcribed: Jun 17 2021 11:40AM Dispersed: Jun 17 2021 11:41AM Attending Dr: BRANYDN BRUCE Admitting Dr: FAUSTO BAKER Primary Care: ERNESTINE OBANDO Additional Doctor(s): ELECTRONICALLY SIGNED BY: LACI RIOS M.D.Jun 17 2021 11:41AM us Doctor Autosign [id number] Final Result * HIE RADIOLOGY REPORT (06/16/2021 8:17 AM EDT) Anatomical Region Laterality Modality Other Narrative Procedure Note Doctor Autosign - 06/16/2021 8:17 AM EDT This final report originated from an external system. Edits and Signatures are only valid in the legal medical record. IHIE: CHEST BEDSIDE ORDERED BY: SARAH YEAGER (Non-Network) [id number] Report: Radiology (ASV Womens) Pt: ARABELLA TRISTAN MR#: [id number] : 1990 Sex:F REG#: [id number] RM#: [id number] 4HR Ordered by: SARAH YEAGER Department of Medical Imaging Adm Date: 06/16/2021 Pt ID: Adm Dx: 32WKS COVID POSITIVE TRANSPORT FROM [facility] Reason: Pneumonia; Comments: COVID+ EXAMINATION: CHEST BEDSIDE - ACC #: [id number] CPT: 25796 Mod: RIS Order: [id number] (XRW) (0025) HIS Order:[id number] STARTED: Jun 16 2021 7:56AM COMPLETED: Jun 16 2021 8:17AM TECH INITIALS: JACLYN FULL RESULT: INDICATION: Pneumonia; EXAM: CHEST BEDSIDE COMPARISON: None available. TECHNIQUE: Single view chest. Findings: Cardiac and mediastinal contours are within normal limits. Left basilar parenchymal opacities. Right lung is clear. Impression: Left basilar parenchymal opacities concerning for pneumonia. ELECTRONICALLY SIGNED BY: YE FROST M.D. Jun 16 2021 8:39AM Dictated: Jun 16 2021 8:38AM MS9 Transcribed: Jun 16 2021 8:38AM Dispersed: Jun 16 2021 8:39AM Attending Dr: SARAH YEAGER Admitting Dr: FAUSTO BAKER Primary Care: ERNESTINE OBANDO Additional Doctor(s): ELECTRONICALLY SIGNED BY: YE FROST M.D.Jun 16 2021 8:39AM us Doctor Autosign [id number] Final Result documented in this encounter Visit Diagnoses Not on filedocumented in this encounter Additional Health Concerns Infection Onset Date Last Indicated Resolved Time Coronavirus Disease (COVID-19) 06/08/2021 06/08/2021 06/19/2021 9:54 PM EDT Assessment Noted Time PHQ-9 Depression Total Score: 11 020 11:21 AM EDT A fall risk assessment has been complete d for the patient 06/08/2021 4:39 PM EDT documented as of this encounter Care Teams Construction Grip Relationship Specialty Start Date End Date Ernestine Camejo NP PCP - General 07/16/18 documented as of this encounter
--- OUTSIDE RECORDS SUMMARY | 2025-09-21 20:39 | XMS_ITS | Encounter Summary ---
Author Organization [facility] work Address [address] [place] [address] Care Team Providers Care Dado Operator Name Role Phone Ernestine Salazar NP Primary Care Provider [phone] Reason for Visit * Reason Comments Medication Refill Encounter Details Date Type Department Care Team ([facility] st Contact Info) Description 2020 Refill Outpatient [facility] [address] [facility] [place] [address] [facility] [place] [address] Stephanie Jalloh, [facility] [address] [place] [place] [address] Medication Refill Social History [...] type documented in this encounter Care Teams Dado Operator Relationship Specialty Start Date End Date Ernestine Salazar NP [address] [place] [address] PCP - General Nurse Practitioner 07/16/18 documented as of this encounter
--- OUTSIDE RECORDS SUMMARY | 2025-09-21 20:39 | XMS_ITS | Encounter Summary ---
Author Organization [facility] work Address [address] [place] [address] Care Team Providers Care Stationary Boiler Fireman Name Role Phone Ernestine Salazar NP Primary Care Provider [phone] Reason for Visit * Reason Comments Medication Refill Encounter Details Date Type Department Care Team ([facility] Contact Info) Description 05/31/2020 Refill Outpatient [facility] [address] [place] [address] Stephanie Jalloh, [facility] [address] [place] [address] Medication Refill Social History Tobacco [...] type documented in this encounter Care Teams Stationary Boiler Fireman Relationship Specialty Start Date End Date Ernestine Salazar NP [address] [place] [facility] [place] [address] PCP - General Nurse Practitioner 07/16/18 documented as of this encounter
[2025-09-21] MEDS: ONDANSETRON INJ 4 MG/2 ML VIAL IV PUSH (20:49)
[2025-09-21] MEDS: ACETAMINOPHEN 500 MG TABLET 1000 MG PO (20:49)
[2025-09-21] MEDS: SODIUM CHLORIDE 0.9% IV 1,000 ML 999 ML IV CONT (20:49)
[2025-09-21 21:44] LABS: Hematocrit 39.6 % (37.0-47.0); Hemoglobin 12.7 g/dL (12.0-15.0); Immature Granulocyte Percent A 0.6 % (0-0.5); Lymphocytes Absolute Auto 1.16 K/mm3 (0.9-3.2); Mean Corpuscular HGB Conc 32.1 g/dl (32-36); Mean Corpuscular Hemoglobin 27.1 pg (26-34); Mean Corpuscular Volume 84.6 fl (80-100); Nucleated Red Blood Cells Absolute Auto 0.000 K/mm3 (0.0-0.012); Nucleated Red Blood Cells Perc 0.0 % (0.0-0.2); Platelet Count Result 197 k/mm3 (150-375); Red Blood Count 4.68 M/mm3 (4.2-5.4); White Blood Count 5.4 K/mm3 (4.5-10.0)
[2025-09-21] MEDS: cefTRIAXone 1 GM in SODIUM CHLORIDE 0.9% IV 50 ML 100 ML IVPB (21:50)
[2025-09-21 21:55] LABS: Alanine Aminotransferase 34 U/L (6-35); Albumin Level 4.3 g/dL (3.5-5.1); Alkaline Phosphatase 57 U/L (38-126); Anion Gap 9 mmol/L (4-12); Aspartate Amino Transferase 37 U/L (14-36); Bilirubin,Total 1.0 mg/dL (0.2-1.3); Blood Urea Nitrogen 12 mg/dL (7-17); Calcium 9.1 mg/dL (8.4-10.2); Carbon Dioxide 22 mmol/L (22-30); Chloride 100 mmol/L (98-107); Estimated CRCL calculation 66 ml/min; Estimated Glomerular Filt Rate > 60; Glucose 81 mg/dL (65-110); Potassium 3.9 mmol/L (3.4-5.0); Sodium 131 mmol/L (137-145); Total Protein 7.6 g/dL (6.3-8.2)
[2025-09-21 22:26] LABS: Procalcitonin 0.1 ng/mL
[2025-09-21] MEDS: SODIUM CHLORIDE 0.9% IV 1,000 ML 125 ML IV CONT (22:57)
--- NOTE | 2025-09-21 23:00 | WPCEDHO ---
ED Hand Off Checklist All vitals saved:y IV Site documented:y All med administrations documented:y Triage Note Triage Note PT TO ED FOR EVAL OF COUGH,FEVER, 09/21/25 19:53 CHILLS,SHORTNESS OF BREATH,BODY ACHES FOR PAST 2 DAYS. this RN agrees with triage assessment. states she was at a family gathering a few days prior to symptoms starting. Allergies No Known Allergies Allergy (Verified 09/21/25 18:38) Family History (Last Reviewed 09/21/25 @ 20:40 by Bud Dumont MD) Mother Cervical cancer Active Medications including assessments/comments Sodium Chloride (Normal Saline Iv) 1,000 mls @ 125 mls/hr IV CONT .Q8H RD Last Admin: 09/21/25:57 Dose: 125 mls/hr Documented By: LOS Infusion/Titration Document 09/21/25 22:57 LOS (Rec: 09/21/25 22:57 LOS [id number]) Intake IV Site Peripheral Access Left Antecubital Container Volume 1,000 Waste Amount 0 Dosing Infusion Rate 125 Cumulative Dose Not Applicable Increase/Decrease Started Elapsed Time Elapsed Time ( 0m minutes) Administered/Completed Medications Discontinued Medications Acetaminophen (Acetaminophen 500 Mg Tablet) 1,000 mg PO ONCE STA Stop: 09/21/25 20:34 Last Admin: 09/21/25 20:49 Dose: 1,000 mg Documented By: BUNNY Sodium Chloride (Normal Saline Iv) 1,000 mls @ 999 mls/hr IV CONT .Q1H1M STA Stop: 09/21/25 21:33 Last Infusion: 09/21/25 21:49 Dose: Infused Documented By: Admin: 09/21/25 20:49 Dose: 999 mls/hr Documented By: BUNNY Ceftriaxone Sodium 1 gm/ (Sodium Chloride) 50 mls @ 100 mls/hr IVPB ONCE STA Stop: 09/21/25 22:00 Last Infusion: 09/21/25 22:20 Dose: Infused Documented By: Admin: 09/21/25 21:50 Dose: 100 mls/hr Documented By: BUNNY Ondansetron HCl (Ondansetron Inj 4 Mg/2 Ml Vial) 4 mg IV PUSH ONCE STA Stop: 09/21/25 20:34 Last Admin: 09/21/25 20:49 Dose: 4 mg Documented By: BUNNY Interventions/Assessments IV / Saline Lock, Insert Start: 09/21/25 18:38 Freq: Status: Active Protocol: Document 09/21/25 20:54 BUNNY (Rec: 09/21/25 20:55 BUNNY [id number]) IV Assessment Peripheral Access Left Antecubital IV Catheter Access Initiated IV Insertion Date 09/21/25 IV Insertion Time 20:55 Catheter Gauge 20 IV Insertion 1 Attempts Ultrasound Used for No Placement IV Site Assessment WNL IV Care and WNL Maintenance PA: Respiratory Assessment Start: 09/21/25 18:47 Freq: Status: Active Protocol: Document 09/21/25 19:54 BUNNY (Rec: 09/21/25 19:54 BUNNY [id number]) Respiratory Assessment Symptoms Congestion Effort Normal Pattern Regular Depth Normal Chest Expansion Symmetrical Adult Capillary Normal/Less than 2 Seconds Refill Cough Frequency Intermittent Oxygen Delivery Oxygen Delivery Room Air Last Vital Signs Temperature 97.6 F 09/21/25 22:41 Pulse Rate 75 09/21/25 21:52 Respiratory Rate 16 09/21/25 21:52 Pulse Oximetry 98 09/21/25 21:52 Blood Pressure 105/61 09/21/25 21:52 Blood Pressure Mean 75 09/21/25 21:52 Blood Pressure Position Sitting 09/21/25 18:40 Oxygen Delivery Room Air 09/21/25 19:54 Weight 67.7 kg 09/21/25 18:40 Last Result - Abnormals Only Immature Gran % (Auto) 0.6 % (0-0.5) H 09/21/25 20:55 [place] % (Auto) 9.3 % (2.6-8.5) H 09/21/25 20:55 Sodium 131 mmol/L (137-145) L 09/21/25 20:55 AST 37 U/L (14-36) H 09/21/25 20:55 Urine Appearance Turbid (Clear) H 09/21/25 19:12 Urine Protein 3+ mg/dL (Negative) H 09/21/25 19:12 Urine Ketones 3+ mg/dL (Negative) H 09/21/25 19:12 Ur Blood (Man) 2+ (Negative) H 09/21/25 19:12 Urine Nitrate Positive (Negative) H 09/21/25 19:12 Urine Bilirubin 1+ (Negative) H 09/21/25 19:12 Leukocyte Esterase Rfl 3+ LYRIC/UL (Negative) H 09/21/25 19:12 Urine RBC 21-50 /hpf (0-2) H 09/21/25 19:12 Urine WBC >100 /hpf (0-3) H 09/21/25 19:12 Ur Squamous Epith Cells Many /hpf (Few) H 09/21/25 19:12 Urine Bacteria 4+ /hpf H 09/21/25 19:12 Most Recent Suicide Severity Rating Suicide Severity Rating NO RISK INDICATED 09/21/25 19:53
--- NOTE | 2025-09-21 23:38 | ADMGEN ---
This patient, Arabella Tristan, was admitted to 2 Medical Room 258-01. Patient/family oriented to hospital policies and general routines including ID bracelet, bed and alarms, visiting hours, pain management, procedures, bathroom and other care routines, personal items, smoking policy, room service/diet, and visiting hours. Information on how to activate the Rapid Response Team has been discussed. Patient/Family are encouraged to report perceived risks to care and to ask questions if they do not understand what they are told or what they should do.
[2025-09-22 04:06] VITALS: BP 95/60; PULSE 66; RESP 18; TEMP 36.4; O2SAT 100
--- NOTE | 2025-09-22 07:18 | P.HP_ITS ---
H&P: HPI History of Present Illness Date/Time: 09/22/25 07:18 Chief Complaint: fever, chills, dysuria Narrative: Patient is a 34 yo female with PMH of UTIs, pyelonephritis who presents to the ER with complaints of fever, chills, cough, body aches, dysuria and urinary frequency. Patient is familiar to me, admitted 06/04-06/06/25 with with pyelonephritis and ureteral stone s/p ureteral stent placement. She was disc harged and instructed to follow-up for stent removal which she did not do. Patient reports about 1 week ago she began experiencing fever, chills, nausea vomiting. She then developed dysuria and mild flank pain. Reports her temperature was as high as 103? F at home. Denies chest pain, shortness breast, cough sore throat, congestion. In ED, sodium 131, AST 37. UA with 3+ ketones, positive nitrates, 3+ LE, >100 WBC, 4+ bacteria. CT abdomen with left ureteric stent , moderate left hydronephrosis. Started on IV Rocephin and IV fluids. Review of Systems Review of Systems: All systems reviewed & are unremarkable except as noted in HPI and below PMFSH Past Medical History Medical History Vapes nicotine containing substance Surgical History Surgical History (Updated 09/22/25 @ 07:31 by ODILIA Bee) History of History of appendectomy History of cholecystectomy Family History Family History Mother Cervical cancer Social History Social History Smoking status: Current every day smoker Tobacco type: e-cigarettes/vaping Alcohol intake: current Drinks per week: 1 Substance use: never Substance use type: marijuana Lack of Transportation: No Lack of Food: Never True Current Housing: I Have Housing Concerned About Future Housing: No Difficulty Paying Gas/Electric Bills: No Difficulty Paying for Meds: No Currently Unemployed: No Education: High School Diploma/GED Difficulty w/ Childcare or Family Care: No Spiritual care concerns: No Meds Home Medications and Allergies Home Medications ?Medication ?Instructions ?Recorded ?Confirmed ?Type tamsulosin 0.4 mg capsule (Flomax) 0.4 mg PO DAILY #30 caps 06/06/25 09/22/25 Rx Allergies Allergy/AdvReac Type Severity Reaction Status Date / Time No Known Allergies Allergy Verified 09/21/25 18:38 Vital Signs Vital Signs - 24 hr 09/21/25 18:40 09/21/25 19:54 09/21/25 20:38 Temperature 98.3 F 99.6 F Pulse Rate 90 71 Respiratory Rate 16 16 Blood Pressure 117/67 106/66 Pulse Oximetry 100 98 Oxygen Delivery Room Air Room Air 09/21/25 21:52 09/21/25 22:41 09/21/25 23:01 Temperature 97.8 F 97.6 F 97.8 F Pulse Rate 75 73 Respiratory Rate 16 16 Blood Pressure 105/61 132/76 Pulse Oximetry 98 99 Oxygen Delivery 09/21/25 23:45 09/21/25 23:58 09/22/25 04:06 Temperature 97.3 F L 97.6 F Pulse Rate 55 L 55 L 66 Respiratory Rate 18 18 18 Blood Pressure 92/53 L 95/60 L Pulse Oximetry 99 99 100 Oxygen Delivery Room Air Exam Narrative: General: NAD Eyes: EOMI ENT: neck supple Cardiovascular: Regular rate and rhythm Respiratory: Clear to auscultation, respirations even and unlabored on RA Gastrointestinal: Soft, non tender Genitourinary: Mild left flank tenderness no suprapubic tenderness Musculoskeletal: No edema Skin: warm, dry Neuro: Alert. Psych: Mood appropriate H&P: Results Labs Labs: Short CBC 09/21/25 Range/Units 20:55 WBC 5.4 (4.5-10.0) K/mm3 Hgb 12.7 (12.0-15.0) g/dL Hct 39.6 (37.0-47.0) % Plt Count 197 (150-375) k/mm3 BMP 09/21/25 20:55 Sodium 131 L Potassium 3.9 Chloride 100 Carbon Dioxide 22 BUN 12 Creatinine 0.97 Glucose 81 Calcium 9.1 Liver Function 09/21/25 Range/Units 20:55 Total Bilirubin 1.0 (0.2-1.3) mg/dL AST 37 H (14-36) U/L ALT 34 (6-35) U/L Alkaline Phosphatase 57 (38-126) U/L Albumin 4.3 (3.5-5.1) g/dL Urine 09/21/25 Range/Units 19:12 Urine Color Dark yellow (Yellow) Urine Appearance Turbid H (Clear) Urine pH 6.5 (5.0-9.0) Ur Specific [place] 1.028 (1.001-1.035) Urine Protein 3+ H (Negative) mg/dL Urine Glucose (UA) Negative (Negative) mg/dL Assessment and Plan Assessment and plan (1) Pyelonephritis: Code(s): N12 - Tubulo-interstitial nephritis, not specified as acute or chronic Status: Acute Assessment and Plan: - UA with 3+ ketones, positive nitrates, 3+ LE, >100 WBC, 4+ bacteria - BP soft, otherwise not meeting sepsis criteria - previous urine culture with E coli, sensitive to cephalosporins, resistant to fluoroquinolones - Started on IV Rocephin and IV fluids -urine culture pending (2) Retained ureteral stent: Code(s): Z96.0 - Presence of urogenital implants Status: Acute Assessment and Plan: - CT abdomen with left ureteric stent, moderate left hydronephrosis -continue IV Rocephin, IV fluids -urology consulted, appreciate recs (3) Hyponatremia: Code(s): E87.1 - Hypo-osmolality and hyponatremia Status: Acute Assessment and Plan: - sodium 131 - likely due to nausea/vomiting - continue IV fluids - repeat BMP Plan DVT prophylaxis: Lovenox Code status: full code Dispo: home once cleared by urology Quality VTE Prophylaxis VTE prophylaxis: pharmacologic ordered Hospitalist MIPS Advance Care Plan I have confirmed that the patient's Advanced Care Plan is present, code status is documented, or surrogate decision maker is listed in patient medical record.: Yes Medication Reconciliation I have utilized all available resources to obtain, update and review the patients current medications (includes all prescriptions, OTC, herbals, cannabis, and nutritional supplements).: Yes The patient is not eligible for med reconciliation; the patient is in a emergent medical situation where delaying treatment would jeopardize the patients health.: No
[2025-09-22] MEDS: ACETAMINOPHEN 325 MG TABLET 650 MG PO ×3 (07:34→21:31)
[2025-09-22] MEDS: SODIUM CHLORIDE 0.9% IV 1,000 ML 125 ML IV CONT (07:35)
--- NOTE | 2025-09-22 08:45 | P.CONUR_ITS ---
Assessment and Plan Assessment and plan (1) Retained ureteral stent: Code(s): Z96.0 - Presence of urogenital implants <Maggie Ovalles APRN - Last Filed: 09/22/25 16:15> Status: Acute <Maggie Ovalles APRN - Last Filed: 09/22/25 16:15> (2) Pyelonephritis: Code(s): N12 - Tubulo-interstitial nephritis, not specified as acute or chronic <Maggie Ovalles APRN - Last Filed: 09/22/25 16:15> Status: Acute <Maggie Ovalles, BUTTON ATTACHING MACHINE OPERATOR - Last Filed: 09/22/25 16:15> (3) Urinary tract infection: Code(s): N39.0 - Urinary tract infection, site not specified <Maggie Ovalles APRN - Last Filed: 09/22/25 16:15> Status: Acute <Maggie Ovalles APRN - Last Filed: 09/22/25 16:15> (4) Calculus, ureteral: Code(s): N20.1 - Calculus of ureter <Maggie Ovalles, BUTTON ATTACHING MACHINE OPERATOR - Last Filed: 09/22/25 16:15> Status: Acute <Maggie Ovalles, BUTTON ATTACHING MACHINE OPERATOR - Last Filed: 09/22/25 16:15> Assessment and Plan: 34y old female with left ureteral stent from 06/04/2025 for 8mm left ureteral stone. She did not follow up after that hospitalization. -ct ap reveals Limited noncontrast CT scan, not optimal to evaluate solid viscera, neoplasms and vascular structures. Left ureteric stent is noted in place. No calculi are noted. Moderate left hydronephrosis is noted. Left kidney is atrophic with cortical scarring. -wbc and cr wnl -UA suspicious for infection. Urine culture pending. Culture driven antibiotics per primary service once resulted. -no urologic surgical intervention planned for this hospitalization -Discussed with the patient that she will need outpatient follow up for stone management after resolution of infection. We discussed that it is imperative that she follow up and not allow the stent to become encrusted by leaving it in place inappropriately. She voiced understanding. ADDENDUM: I (Anirudh Logan MD) personally reviewed the patient's chart, vitals, labs, imaging, and evaluated the patient. I performed the substantive portion of this visit with greater than 50% of the total time was spent by me and was critical to the medical decision making process. This is a 34 year old female who had a left ureteral stent placed in early May 2025 by one of my colleagues. Thereafter, she failed to follow-up for definitive stone management. She is currently admitted for fever with upper respiratory infection as well as urinary tract infection with a retained left ureteral stent. Her CT scan demonstrates her left ureteral stent in appropriate position and demonstrates her left proximal ureteral stone is still present; she also has calcification in the left kidney which may be parenchymal versus within the urinary tract. She initially had leukocytosis which has resolved today. Her renal function is within normal minutes. Given the patient has active UTI as well as upper respiratory tract infection with associated fevers, I reviewed with the patient that taking her to the operating room during this hospitalization would be ill-advised as it can exacerbate her infection to the point of sepsis and even . Her reviewed the importance of following up as an outpatient for definitive stone treatment, which will plan to do with cystoscopy, retrograde pyelogram, ureteroscopy, laser lithotripsy, stone basket extraction, and left ureteral stent exchange versus removal. Have sent a message to my basic sciences dean to coordinate her follow- up surgery in the near future after confirming resolution of her infection. The patient expressed understanding of the importance of following up for definitive stone treatment surgery and understands that if she does not follow up, she risks stent encrustation/failure, UTI/sepsis, permanent kidney damage, and even . She expressed understanding to all of the above. Patient will be contacted by my basic sciences dean in the near future to schedule her outpatient surgery for definitive endoscopic management of her stone. <Maggie Ovalles, BUTTON ATTACHING MACHINE OPERATOR - Last Filed: 09/22/25 16:15> 34y old female with left ureteral stent from 06/04/2025 for 8mm left ureteral stone. She did not follow up after that hospitalization. -ct ap reveals Limited noncontrast CT scan, not optimal to evaluate solid viscera, neoplasms and vascular structures. Left ureteric stent is noted in place. No calculi are noted. Moderate left hydronephrosis is noted. Left kidney is atrophic with cortical scarring. -wbc and cr wnl -UA suspicious for infection. Urine culture pending. Culture driven antibiotics per primary service once resulted. ADDENDUM: I (Anirudh Logan MD) personally reviewed the patient's chart, vitals, labs, imaging, and evaluated the patient. I performed the substantive portion of this visit with greater than 50% of the total time was spent by me and was critical to the medical decision making process. This is a 34 year old female who had a left ureteral stent placed in early May 2025 by one of my colleagues. Thereafter, she failed to follow-up for definitive stone management. She is currently admitted for fever with upper respiratory infection as well as urinary tract infection with a retained left ureteral stent. Her CT scan demonstrates her left ureteral stent in appropriate position and demonstrates her left proximal ureteral stone is still present; she also has calcification in the left kidney which may be parenchymal versus within the urinary tract. She initially had leukocytosis which has resolved today. Her renal function is within normal minutes. Given the patient has active UTI as well as upper respiratory tract infection with associated fevers, I reviewed with the patient that taking her to the operating room during this hospitalization would be ill-advised as it can exacerbate her infection to the point of sepsis and even . Her reviewed the importance of following up as an outpatient for definitive stone treatment, which will plan to do with cystoscopy, retrograde pyelogram, ureteroscopy, laser lithotripsy, stone basket extraction, and left ureteral stent exchange versus removal. Have sent a message to my basic sciences dean to coordinate her follow- up surgery in the near future after confirming resolution of her infection. The patient expressed understanding of the importance of following up for definitive stone treatment surgery and understands that if she does not follow up, she risks stent encrustation/failure, UTI/sepsis, permanent kidney damage, and even . She expressed understanding to all of the above. Patient will be contacted by my basic sciences dean in the near future to schedule her outpatient surgery for definitive endoscopic management of her stone. <Anirudh Logan MD - Last Filed: 09/22/25 15:37> Urology Consult Note HPI Date Seen: 09/22/25 <Maggie Ovalles APRN - Last Filed: 09/22/25 16:15> 09/22/25 <Anirudh Logan MD - Last Filed: 09/22/25 15:37> Requesting Physician: Gypsy Delong, <Maggie Ovallse APRN - Last Filed: 09/22/25 16:15> Primary Care Provider: GLOVE BRUSHER PHYSICIAN <Maggie Ovalles APRN - Last Filed: 09/22/25 16:15> Consult Narrative Narrative: Arabella Tristan is a 34 year old female Patient is a 34 yo female with PMH of UTIs, pyelonephritis who presents to the ER with complaints of fever, chills, cough, body aches, dysuria and urinary frequency. Patient is familiar to me, admitted 06/04-06/06/25 with with pyelonephritis and ureteral stone s/p ureteral stent placement. She was discharged and instructed to follow-up for stent removal which she did not do. In ED, sodium 131, AST 37. UA with 3+ ketones, positive nitrates, 3+ LE, >100 WBC, 4+ bacteria. CT abdomen with left ureteric stent , moderate left hydronephrosis. Started on IV Rocephin and IV fluids. <Maggie Ovalles APRN - Last Filed: 09/22/25 16:15> Review of Systems 2 Review of Systems: All systems reviewed & are unremarkable except as noted in HPI and below <Maggie Ovalles APRN - Last Filed: 09/22/25 16:15> PMFSH Past Medical History Medical History: Medical History Vapes nicotine containing substance <Maggie Ovalles APRN - Last Filed: 09/22/25 16:15> Surgical History Surgical History: Surgical History (Updated 09/22/25 @ 07:31 by ODILIA Bee) History of History of appendectomy History of cholecystectomy <Maggie Ovalles APRN - Last Filed: 09/22/25 16:15> Family History Family History: Family History Mother Cervical cancer <Maggie Ovalles APRN - Last Filed: 09/22/25 16:15> Social History Social History: Social History Smoking status: Current every day smoker Tobacco type: e-cigarettes/vaping Alcohol intake: current Drinks per week: 1 Substance use: never Substance use type: marijuana Lack of Transportation: No Lack of Food: Never True Current Housing: I Have Housing Concerned About Future Housing: No Difficulty Paying Gas/Electric Bills: No Difficulty Paying for Meds: No Currently Unemployed: No Education: High School Diploma/GED Difficulty w/ Childcare or Family Care: No Spiritual care concerns: No <Maggie Ovalles APRN - Last Filed: 09/22/25 16:15> Meds Home Medications and Allergies Home medications: Home Medications ?Medication ?Instructions ?Recorded ?Confirmed ?Type tamsulosin 0.4 mg capsule (Flomax) 0.4 mg PO DAILY #30 caps 06/06/25 09/22/25 Rx <Maggie Ovalles APRN - Last Filed: 09/22/25 16:15> Allergies/Adverse reactions: Allergies Allergy/AdvReac Type Severity Reaction Status Date / Time No Known Allergies Allergy Verified 09/21/25 18:38 <Maggie Ovalles APRN - Last Filed: 09/22/25 16:15> Vital Signs Vital Signs - 24 hr 09/21/25 18:40 09/21/25 19:54 09/21/25 20:38 Temperature 98.3 F 99.6 F Pulse Rate 90 71 Respiratory Rate 16 16 Blood Pressure 117/67 106/66 Pulse Oximetry 100 98 Oxygen Delivery Room Air Room Air 09/21/25 21:52 09/21/25 22:41 09/21/25 23:01 Temperature 97.8 F 97.6 F 97.8 F Pulse Rate 75 73 Respiratory Rate 16 16 Blood Pressure 105/61 132/76 Pulse Oximetry 98 99 Oxygen Delivery 09/21/25 23:45 09/21/25 23:58 09/22/25 04:06 Temperature 97.3 F L 97.6 F Pulse Rate 55 L 55 L 66 Respiratory Rate 18 18 18 Blood Pressure 92/53 L 95/60 L Pulse Oximetry 99 99 100 Oxygen Delivery Room Air <Maggie Ovalles APRN - Last Filed: 09/22/25 16:15> Exam 2 Const: General: comfortable and no acute distress <Maggie Ovalles APRN - Last Filed: 09/22/25 16:15> Eyes: General: appearance normal, both eyes and all related structures < Maggie Ovalles APRN - Last Filed: 09/22/25 16:15> Resp: Effort & Inspection: normal respiratory effort <Maggie Ovalles APRN - Last Filed: 09/22/25 16:15> Skin: General skin exam: normal color <Maggie Ovalles APRN - Last Filed: 09/22/25 16:15> Neuro: Speech: normal speech <Maggie Ovalles APRN - Last Filed: 09/22/25 16:15> Psych: Speech and movement: Normal speech and movement present <Maggie Ovalles APRN - Last Filed: 09/22/25 16:15> Results Labs CBC & Chem 7: 09/21/25 20:55 09/22/25 12:43 <Maggie Ovalles APRN - Last Filed: 09/22/25 16:15> Labs: Short CBC 09/21/25 Range/Units 20:55 WBC 5.4 (4.5-10.0) K/mm3 Hgb 12.7 (12.0-15.0) g/dL Hct 39.6 (37.0-47.0) % Plt Count 197 (150-375) k/mm3 BMP 09/21/25 20:55 Sodium 131 L Potassium 3.9 Chloride 100 Carbon Dioxide 22 BUN 12 Creatinine 0.97 Glucose 81 Calcium 9.1 Liver Function 09/21/25 Range/Units 20:55 Total Bilirubin 1.0 (0.2-1.3) mg/dL AST 37 H (14-36) U/L ALT 34 (6-35) U/L Alkaline Phosphatase 57 (38-126) U/L Albumin 4.3 (3.5-5.1) g/dL Urine 09/21/25 Range/Units 19:12 Urine Color Dark yellow (Yellow) Urine Appearance Turbid H (Clear) Urine pH 6.5 (5.0-9.0) Ur Specific [place] 1.028 (1.001-1.035) Urine Protein 3+ H (Negative) mg/dL Urine Glucose (UA) Negative (Negative) mg/dL <Maggie Ovalles, BUTTON ATTACHING MACHINE OPERATOR - Last Filed: 09/22/25 16:15>
[2025-09-22 14:00] VITALS: BP 100/42; PULSE 76; RESP 16; TEMP 37.1; O2SAT 98
[2025-09-22 14:05] LABS: Anion Gap 6 mmol/L (4-12); Blood Urea Nitrogen 10 mg/dL (7-17); Calcium 8.5 mg/dL (8.4-10.2); Carbon Dioxide 22 mmol/L (22-30); Chloride 107 mmol/L (98-107); Estimated CRCL calculation 81 ml/min; Estimated Glomerular Filt Rate > 60; Glucose 73 mg/dL (65-110); Potassium 4.0 mmol/L (3.4-5.0); Sodium 135 mmol/L (137-145)
[2025-09-22 19:51] VITALS: BP 90/43; PULSE 63; RESP 18; TEMP 36.7; O2SAT 96
[2025-09-22 20:00] VITALS: PULSE 63; RESP 18; O2SAT 96
[2025-09-22] MEDS: cefTRIAXone 1 GM in SODIUM CHLORIDE 0.9% IV 50 ML 100 ML IVPB (21:23)
[2025-09-22] MEDS: MORPHINE SULFATE (*CRX) 4 MG/ML INJ 2 MG IV PUSH (23:53)
[2025-09-23 04:30] VITALS: BP 91/52; PULSE 79; RESP 18; TEMP 37.8; O2SAT 98
[2025-09-23 04:32] LABS: Hematocrit 40.5 % (37.0-47.0); Hemoglobin 12.7 g/dL (12.0-15.0); Immature Granulocyte Percent A 0.6 % (0-0.5); Lymphocytes Absolute Auto 1.06 K/mm3 (0.9-3.2); Mean Corpuscular HGB Conc 31.4 g/dl (32-36); Mean Corpuscular Hemoglobin 26.6 pg (26-34); Mean Corpuscular Volume 84.9 fl (80-100); Nucleated Red Blood Cells Absolute Auto 0.000 K/mm3 (0.0-0.012); Nucleated Red Blood Cells Perc 0.0 % (0.0-0.2); Platelet Count Result 156 k/mm3 (150-375); Red Blood Count 4.77 M/mm3 (4.2-5.4); White Blood Count 3.5 K/mm3 (4.5-10.0)
[2025-09-23 05:09] LABS: Anion Gap 7 mmol/L (4-12); Blood Urea Nitrogen 8 mg/dL (7-17); Calcium 9.0 mg/dL (8.4-10.2); Carbon Dioxide 22 mmol/L (22-30); Chloride 103 mmol/L (98-107); Estimated CRCL calculation 74 ml/min; Estimated Glomerular Filt Rate > 60; Glucose 85 mg/dL (65-110); Potassium 4.1 mmol/L (3.4-5.0); Sodium 132 mmol/L (137-145)
[2025-09-23 06:13] VITALS: TEMP 37.8
[2025-09-23] MEDS: ACETAMINOPHEN 325 MG TABLET 650 MG PO (06:13)
--- NOTE | 2025-09-23 06:56 | P.PNIM_ITS ---
Progress Note: A&P Assessment and Plan (1) Pyelonephritis: Code(s): N12 - Tubulo-interstitial nephritis, not specified as acute or chronic Status: Acute Assessment and Plan: - UA with 3+ ketones, positive nitrates, 3+ LE, >100 WBC, 4+ bacteria - BP soft, otherwise not meeting sepsis criteria - previous urine culture with E coli, sensitive to cephalosporins, resistant to fluoroquinolones - Started on IV Rocephin and IV fluids - urine culture pending (2) Retained ureteral stent: Code(s): Z96.0 - Presence of urogenital implants Status: Acute Assessment and Plan: - CT abdomen with left ureteric stent, moderate left hydronephrosis -continue IV Rocephin, IV fluids -urology consulted - no plans for surgical intervention while admitted. Recommended to continue IV antibiotics and plan for outpatient stent removal. (3) Hyponatremia: Code(s): E87.1 - Hypo-osmolality and hyponatremia Status: Acute Assessment and Plan: - sodium 132 - likely due to nausea/vomiting - continue IV fluids - repeat BMP in AM Plan DVT prophylaxis: Lovenox Code status: full code Dispo: home once urine culture resulted Subjective Date/time seen: 09/23/25 06:56 Interval history: Patient seen and examined at bedside. Had some flank pain and nausea this AM. Dysuria is improving. Tolerated a little breakfast. No nausea. Review of Systems Review of Systems: All systems reviewed & are unremarkable except as noted in HPI and below Exam Narrative: General: NAD Eyes: EOMI ENT: neck supple Cardiovascular:regular rhythm Respiratory: Clear to auscultation, respirations even and unlabored on RA Gastrointestinal: Soft, non tender Genitourinary: +left flank tenderness Musculoskeletal: No edema Skin: warm, dry Neuro: Alert. Psych: Mood appropriate Objective Data Vital Signs Vital Signs: Vital Signs - 24 hr 09/22/25 08:00 09/22/25 14:00 09/22/25 19:51 Temperature 98.8 F 98.0 F Pulse Rate 76 63 Respiratory Rate 16 18 Blood Pressure 100/42 L 90/43 L Pulse Oximetry 98 96 Oxygen Delivery Room Air 09/22/25 20:00 09/23/25 04:30 09/23/25 06:13 Temperature 100.0 F H 100.0 F H Pulse Rate 63 79 Respiratory Rate 18 18 Blood Pressure 91/52 L Pulse Oximetry 96 98 Oxygen Delivery Room Air Intake/Output Intake/Output: Intake & Output 09/20/25 09/21/25 09/22/25 09/23/25 23:59 23:59 23:59 23:59 Intake Total 1050 1540 240 Output Total 100 Balance 1050 1440 240 Meds/Results Medications: Active Medications Generic Name Dose Route Start Last Admin Trade Name Freq PRN Reason Stop Dose Admin Acetaminophen 650 mg 09/21/25 22:29 09/23/25 06:13 Acetaminophen 325 Mg Tablet PO 650 mg Q4H PRN Administration Mild Pain (1-3) or Fever Enoxaparin Sodium 40 mg 09/23/25 09:00 Enoxaparin 40 Mg/0.4 Ml Syringe SUB-Q DAILY RD Ceftriaxone Sodium 1 gm/ 50 mls @ 100 mls/hr 09/22/25 21:00 09/22/25 21:53 Sodium Chloride IVPB Infused Q24H RD Infusion Morphine Sulfate 2 mg 09/21/25 22:29 09/22/25 23:53 Morphine Sulfate (*Crx) 4 Mg/Ml Inj IV PUSH 2 mg Q2H PRN Administration Pain Rated 7-10 Ondansetron HCl 4 mg 09/21/25 22:29 Ondansetron Inj 4 Mg/2 Ml Vial IV PUSH Q4H PRN Nausea Radiology Results: ITS Impressions Chest X-Ray 09/21/25 19:04 IMPRESSION: 1. No acute findings. Abdomen/Pelvis CT 09/21/25 20:51 IMPRESSION: 1. Limited noncontrast CT scan, not optimal to evaluate solid viscera, neoplasms and vascular structures. 2. Left ureteric stent is noted in place. No calculi are noted. Moderate left hydronephrosis is noted. 3. Left kidney is atrophic with cortical scarring. Labs Labs: Laboratory Results - last 24 hr 09/22/25 09/23/25 12:43 04:20 WBC 3.5 L RBC 4.77 Hgb 12.7 Hct 40.5 MCV 84.9 MCH 26.6 MCHC 31.4 L RDW 13.5 Plt Count 156 MPV 9.0 Immature Gran % (Auto) 0.6 H Neut % (Auto) 54.1 Lymph % (Auto) 30.4 [place] % (Auto) 13.2 H Eos % (Auto) 1.4 Baso % (Auto) 0.3 Lymph # (Auto) 1.06 [place] # (Auto) 0.5 Eos # (Auto) 0.1 Baso # (Auto) 0.0 Abs Immat Gran (auto) 0.02 Absolute Neuts (auto) 1.9 Absolute Nucleated RBC 0.000 Nucleated RBC % 0.0 Sodium 135 L 132 L Potassium 4.0 4.1 Chloride 107 103 Carbon Dioxide 22 22 Anion Gap 6 7 BUN 10 8 Creatinine 0.78 0.86 Estim Creat Clear Calc 81 74 Estimated GFR > 60 > 60 Glucose 73 85 Calcium 8.5 9.0
[2025-09-23] MEDS: LACTATED RINGERS 1,000 ML 100 ML IV CONT (07:52)
[2025-09-23] MEDS: ENOXAPARIN 40 MG/0.4 ML SYRINGE SUB-Q (07:54)
[2025-09-23 07:55] VITALS: RESP 18; O2SAT 98
[2025-09-23] MEDS: MORPHINE SULFATE (*CRX) 4 MG/ML INJ 2 MG IV PUSH ×3 (07:55→18:29)
[2025-09-23] MEDS: ONDANSETRON INJ 4 MG/2 ML VIAL IV PUSH ×3 (07:56→18:30)
--- NOTE | 2025-09-23 12:06 | WPDUROPN2 ---
Progress Note: A&P Assessment and Plan (1) Pyelonephritis: Code(s): N12 - Tubulo-interstitial nephritis, not specified as acute or chronic Status: Acute (2) Retained ureteral stent: Code(s): Z96.0 - Presence of urogenital implants Status: Acute Assessment and Plan: Reinforced need for definitive stone management and stent removal. She demonstrates clear understanding. Discussed need for appropriate treatment of infection with antibiotics prior to urologic instrumentation, she voices understanding. Continue antibiotics, culture results are pending. Continue monitoring fever curve. Subjective Subjective Date/Time Seen: 09/23/25 12:06 Interval history: OMAREO Tm 100.0, reports she is feeling slightly better. Review of Systems Review of Systems: All systems reviewed & are unremarkable except as noted in HPI and below Exam Narrative: NAD, A&Ox3 RRR eWOB S/NT/ND 2+ DP, warm/dry extremities Objective Data Vital Signs Vital Signs: Vital Signs - 24 hr 09/22/25 14:00 09/22/25 19:51 09/22/25 20:00 Temperature 98.8 F 98.0 F Pulse Rate 76 63 63 Respiratory Rate 16 18 18 Blood Pressure 100/42 L 90/43 L Pulse Oximetry 98 96 96 Oxygen Delivery Room Air 09/23/25 04:30 09/23/25 06:13 09/23/25 07:55 Temperature 100.0 F H 100.0 F H Pulse Rate 79 Respiratory Rate 18 18 Blood Pressure 91/52 L Pulse Oximetry 98 98 Oxygen Delivery Room Air Intake/Output Intake/Output: Intake & Output 09/20/25 09/21/25 09/22/25 09/23/25 23:59 23:59 23:59 23:59 Intake Total 1050 1540 496.7 Output Total 100 Balance 1050 1440 496.7 Meds/Results Medications: Active Medications Generic Name Dose Route Start Last Admin Trade Name Freq PRN Reason Stop Dose Admin Acetaminophen 650 mg 09/21/25 22:29 09/23/25 06:13 Acetaminophen 325 Mg Tablet PO 650 mg Q4H PRN Administration Mild Pain (1-3) or Fever Enoxaparin Sodium 40 mg 09/23/25 09:00 09/23/25 07:54 Enoxaparin 40 Mg/0.4 Ml Syringe SUB-Q [address] Administration Ceftriaxone Sodium 1 gm/ 50 mls @ 100 mls/hr 09/22/25 21:00 09/22/25 21:53 Sodium Chloride IVPB Infused Q24H RD Infusion Lactated Ringer's 1,000 mls @ 100 mls/hr 09/23/25 07:05 09/23/25 10:30 Lr - Lactated Ringers Iv IV CONT 09/23/25 17:04 100 mls/hr .Q10H RD Infusion Morphine Sulfate 2 mg 09/21/25 22:29 09/23/25 07:55 Morphine Sulfate (*Crx) 4 Mg/Ml Inj IV PUSH 2 mg Q2H PRN Administration Pain Rated 7-10 Ondansetron HCl 4 mg 09/21/25 22:29 09/23/25 07:56 Ondansetron Inj 4 Mg/2 Ml Vial IV PUSH 4 mg Q4H PRN Administration Nausea Radiology Results: ITS Impressions Chest X-Ray 09/21/25 19:04 IMPRESSION: 1. No acute findings. Abdomen/Pelvis CT 09/21/25 20:51 IMPRESSION: 1. Limited noncontrast CT scan, not optimal to evaluate solid viscera, neoplasms and vascular structures. 2. Left ureteric stent is noted in place. No calculi are noted. Moderate left hydronephrosis is noted. 3. Left kidney is atrophic with cortical scarring. Labs Labs: Laboratory Results - last 24 hr 09/22/25 09/23/25 12:43 04:20 WBC 3.5 L RBC 4.77 Hgb 12.7 Hct 40.5 MCV 84.9 MCH 26.6 MCHC 31.4 L RDW 13.5 Plt Count 156 MPV 9.0 Immature Gran % (Auto) 0.6 H Neut % (Auto) 54.1 Lymph % (Auto) 30.4 [place] % (Auto) 13.2 H Eos % (Auto) 1.4 Baso % (Auto) 0.3 Lymph # (Auto) 1.06 [place] # (Auto) 0.5 Eos # (Auto) 0.1 Baso # (Auto) 0.0 Abs Immat Gran (auto) 0.02 Absolute Neuts (auto) 1.9 Absolute Nucleated RBC 0.000 Nucleated RBC % 0.0 Sodium 135 L 132 L Potassium 4.0 4.1 Chloride 107 103 Carbon Dioxide 22 22 Anion Gap 6 7 BUN 10 8 Creatinine 0.78 0.86 Estim Creat Clear Calc 81 74 Estimated GFR > 60 > 60 Glucose 73 85 Calcium 8.5 9.0
[2025-09-23 13:55] VITALS: BP 95/55; PULSE 71; RESP 20; TEMP 36.9; O2SAT 99
[2025-09-23 20:13] VITALS: BP 94/51; PULSE 86; RESP 18; TEMP 37.4; O2SAT 98
[2025-09-23] MEDS: KETOROLAC 15 MG/ML VIAL (*BKC) IV PUSH (20:29)
[2025-09-23] MEDS: cefTRIAXone 1 GM in SODIUM CHLORIDE 0.9% IV 50 ML 100 ML IVPB (20:31)
[2025-09-23] MEDS: HYDROcodone/acetaminophen (*CRX) 5-325 MG TABLET 1 TAB PO (20:31)
[2025-09-24] MEDS: KETOROLAC 15 MG/ML VIAL (*BKC) IV PUSH ×4 (01:00→20:59)
[2025-09-24] MEDS: HYDROcodone/acetaminophen (*CRX) 5-325 MG TABLET 1 TAB PO ×4 (01:01→18:47)
[2025-09-24 04:08] VITALS: BP 90/48; PULSE 99; RESP 18; TEMP 36.5; O2SAT 99
[2025-09-24 05:08] LABS: Hematocrit 41.3 % (37.0-47.0); Hemoglobin 13.1 g/dL (12.0-15.0); Immature Granulocyte Percent A 0.5 % (0-0.5); Lymphocytes Absolute Auto 1.85 K/mm3 (0.9-3.2); Mean Corpuscular HGB Conc 31.7 g/dl (32-36); Mean Corpuscular Hemoglobin 27.5 pg (26-34); Mean Corpuscular Volume 86.6 fl (80-100); Nucleated Red Blood Cells Absolute Auto 0.000 K/mm3 (0.0-0.012); Nucleated Red Blood Cells Perc 0.0 % (0.0-0.2); Platelet Count Result 160 k/mm3 (150-375); Red Blood Count 4.77 M/mm3 (4.2-5.4); White Blood Count 4.4 K/mm3 (4.5-10.0)
[2025-09-24 05:28] LABS: Anion Gap 7 mmol/L (4-12); Blood Urea Nitrogen 7 mg/dL (7-17); Calcium 9.2 mg/dL (8.4-10.2); Carbon Dioxide 24 mmol/L (22-30); Chloride 103 mmol/L (98-107); Estimated CRCL calculation 70 ml/min; Estimated Glomerular Filt Rate > 60; Glucose 89 mg/dL (65-110); Potassium 3.5 mmol/L (3.4-5.0); Sodium 134 mmol/L (137-145)
[2025-09-24 07:57] VITALS: BP 117/68
[2025-09-24] MEDS: ONDANSETRON INJ 4 MG/2 ML VIAL IV PUSH (07:59)
[2025-09-24] MEDS: ENOXAPARIN 40 MG/0.4 ML SYRINGE SUB-Q (08:00)
--- NOTE | 2025-09-24 12:11 | WPDUROPN2 ---
Progress Note: A&P Assessment and Plan (1) Pyelonephritis: Code(s): N12 - Tubulo-interstitial nephritis, not specified as acute or chronic Status: Acute (2) Retained ureteral stent: Code(s): Z96.0 - Presence of urogenital implants Status: Acute Assessment and Plan: Reinforced again the need for definitive stone management and stent removal. She demonstrates clear understanding. Discussed need for appropriate treatment of infection with antibiotics prior to urologic instrumentation, she voices understanding. Continue antibiotics, sensitivity results are pending. Continue monitoring fever curve. Subjective Subjective Date/Time Seen: 09/24/25 12:11 Interval history: NAEO, no fevers since yesterday, culture growing e coli. Review of Systems Review of Systems: All systems reviewed & are unremarkable except as noted in HPI and below Exam Narrative: NAD, A&Ox3 RRR eWOB S/NT/ND Objective Data Vital Signs Vital Signs: Vital Signs - 24 hr 09/23/25 13:55 09/23/25 20:13 09/24/25 04:08 Temperature 98.5 F 99.3 F 97.7 F Pulse Rate 71 86 99 Respiratory Rate 20 18 18 Blood Pressure 95/55 L 94/51 L 90/48 L Pulse Oximetry 99 98 99 Oxygen Delivery 09/24/25 07:57 09/24/25 08:14 Temperature Pulse Rate Respiratory Rate Blood Pressure 117/68 Pulse Oximetry Oxygen Delivery Room Air Intake/Output Intake/Output: Intake & Output 09/21/25 09/22/25 09/23/25 09/24/25 23:59 23:59 23:59 23:59 Intake Total 1050 1540 1900.0 400 Output Total 100 Balance 1050 1440 1900.0 400 Meds/Results Medications: Active Medications Generic Name Dose Route Start Last Admin Trade Name Freq PRN Reason Stop Dose Admin Acetaminophen 650 mg 09/21/25 22:29 09/23/25 06:13 Acetaminophen 325 Mg Tablet PO 650 mg Q4H PRN Administration Mild Pain (1-3) or Fever Hydrocodone Bitart/Acetaminophen 1 tab 09/23/25 19:55 09/24/25 07:59 Hydrocodone/Acetaminophen (*Crx) 5-325 Mg Tablet PO 1 tab Q4H PRN Administration Pain Rated 4-6 Enoxaparin Sodium 40 mg 09/23/25 09:00 09/24/25 08:00 Enoxaparin 40 Mg/0.4 Ml Syringe SUB-Q [address] Administration Ceftriaxone Sodium 1 gm/ 50 mls @ 100 mls/hr 09/22/25 21:00 09/23/25 22:35 Sodium Chloride IVPB Infused Q24H RD Infusion Ketorolac Tromethamine 15 mg 09/23/25 20:00 09/24/25 07:59 Ketorolac 15 Mg/Ml Vial (*Bkc) IV PUSH [address] Administration Morphine Sulfate 2 mg 09/21/25 22:29 09/23/25 18:29 Morphine Sulfate (*Crx) 4 Mg/Ml Inj IV PUSH 2 mg Q2H PRN Administration Pain Rated 7-10 Ondansetron HCl 4 mg 09/21/25 22:29 09/24/25 07:59 Ondansetron Inj 4 Mg/2 Ml Vial IV PUSH 4 mg Q4H PRN Administration Nausea Radiology Results: ITS Impressions Chest X-Ray 09/21/25 19:04 IMPRESSION: 1. No acute findings. Abdomen/Pelvis CT 09/21/25 20:51 IMPRESSION: 1. Limited noncontrast CT scan, not optimal to evaluate solid viscera, neoplasms and vascular structures. 2. Left ureteric stent is noted in place. No calculi are noted. Moderate left hydronephrosis is noted. 3. Left kidney is atrophic with cortical scarring. Labs Labs: Laboratory Results - last 24 hr 09/24/25 04:34 WBC 4.4 L RBC 4.77 Hgb 13.1 Hct 41.3 MCV 86.6 MCH 27.5 MCHC 31.7 L RDW 13.8 Plt Count 160 MPV 9.3 Immature Gran % (Auto) 0.5 Neut % (Auto) 40.3 L Lymph % (Auto) 42.0 [place] % (Auto) 14.7 H Eos % (Auto) 2.0 Baso % (Auto) 0.5 Lymph # (Auto) 1.85 [place] # (Auto) 0.7 H Eos # (Auto) 0.1 Baso # (Auto) 0.0 Abs Immat Gran (auto) 0.02 Absolute Neuts (auto) 1.8 Absolute Nucleated RBC 0.000 Nucleated RBC % 0.0 Sodium 134 L Potassium 3.5 Chloride 103 Carbon Dioxide 24 Anion Gap 7 BUN 7 Creatinine 0.92 Estim Creat Clear Calc 70 Estimated GFR > 60 Glucose 89 Calcium 9.2
--- NOTE | 2025-09-24 12:44 | P.PNIM_ITS ---
Progress Note: A&P Assessment and Plan (1) Pyelonephritis: Code(s): N12 - Tubulo-interstitial nephritis, not specified as acute or chronic Status: Acute Assessment and Plan: - urine culture with E coli, awaiting sensitivities - BP soft, otherwise not meeting sepsis criteria. BP chronically runs low, asymptomatic. - previous urine culture with E coli, sensitive to cephalosporins, resistant to fluoroquinolones - continue IV Rocephin pending sensitivities - urology following (2) Retained ureteral stent: Code(s): Z96.0 - Presence of urogenital implants Status: Acute Assessment and Plan: - CT abdomen with left ureteric stent, moderate left hydronephrosis -continue IV Rocephin -urology consulted - no plans for surgical intervention while admitted. Recommended to continue IV antibiotics and plan for outpatient stent removal. (3) Hyponatremia: Code(s): E87.1 - Hypo-osmolality and hyponatremia Status: Acute Assessment and Plan: - sodium 132 - likely due to nausea/vomiting - continue IV fluids - repeat BMP in AM Plan DVT prophylaxis: Lovenox Code status: full code Dispo: home once urine culture resulted. Hopefully home tomorrow. Subjective Date/time seen: 09/24/25 12:44 Interval history: Patient seen and examined at bedside. Had some nausea and flank pain this AM. Dysuria is improving. Discussed awaiting for sensitivities, patient agreeable. Review of Systems Review of Systems: All systems reviewed & are unremarkable except as noted in HPI and below Exam Narrative: General: NAD Eyes: EOMI ENT: neck supple Cardiovascular:regular rhythm Respiratory: Clear to auscultation, respirations even and unlabored on RA Gastrointestinal: Soft, non tender Genitourinary: no suprapubic tenderness Musculoskeletal: No edema Skin: warm, dry Neuro: Alert. Psych: Mood appropriate Objective Data Vital Signs Vital Signs: Vital Signs - 24 hr 09/23/25 13:55 09/23/25 20:13 09/24/25 04:08 Temperature 98.5 F 99.3 F 97.7 F Pulse Rate 71 86 99 Respiratory Rate 20 18 18 Blood Pressure 95/55 L 94/51 L 90/48 L Pulse Oximetry 99 98 99 Oxygen Delivery 09/24/25 07:57 09/24/25 08:14 Temperature Pulse Rate Respiratory Rate Blood Pressure 117/68 Pulse Oximetry Oxygen Delivery Room Air Intake/Output Intake/Output: Intake & Output 09/21/25 09/22/25 09/23/25 09/24/25 23:59 23:59 23:59 23:59 Intake Total 1050 1540 1900.0 400 Output Total 100 Balance 1050 1440 1900.0 400 Meds/Results Medications: Active Medications Generic Name Dose Route Start Last Admin Trade Name Freq PRN Reason Stop Dose Admin Acetaminophen 650 mg 09/21/25 22:29 09/23/25 06:13 Acetaminophen 325 Mg Tablet PO 650 mg Q4H PRN Administration Mild Pain (1-3) or Fever Hydrocodone Bitart/Acetaminophen 1 tab 09/23/25 19:55 09/24/25 07:59 Hydrocodone/Acetaminophen (*Crx) 5-325 Mg Tablet PO 1 tab Q4H PRN Administration Pain Rated 4-6 Enoxaparin Sodium 40 mg 09/23/25 09:00 09/24/25 08:00 Enoxaparin 40 Mg/0.4 Ml Syringe SUB-Q [address] Administration Ceftriaxone Sodium 1 gm/ 50 mls @ 100 mls/hr 09/22/25 21:00 09/23/25 22:35 Sodium Chloride IVPB Infused Q24H RD Infusion Ketorolac Tromethamine 15 mg 09/23/25 20:00 09/24/25 07:59 Ketorolac 15 Mg/Ml Vial (*Bkc) IV PUSH [address] Administration Morphine Sulfate 2 mg 09/21/25 22:29 09/23/25 18:29 Morphine Sulfate (*Crx) 4 Mg/Ml Inj IV PUSH 2 mg Q2H PRN Administration Pain Rated 7-10 Ondansetron HCl 4 mg 09/21/25 22:29 09/24/25 07:59 Ondansetron Inj 4 Mg/2 Ml Vial IV PUSH 4 mg Q4H PRN Administration Nausea Radiology Results: ITS Impressions Chest X-Ray 09/21/25 19:04 IMPRESSION: 1. No acute findings. Abdomen/Pelvis CT 09/21/25 20:51 IMPRESSION: 1. Limited noncontrast CT scan, not optimal to evaluate solid viscera, neoplasms and vascular structures. 2. Left ureteric stent is noted in place. No calculi are noted. Moderate left hydronephrosis is noted. 3. Left kidney is atrophic with cortical scarring. Labs Labs: Laboratory Results - last 24 hr 09/24/25 04:34 WBC 4.4 L RBC 4.77 Hgb 13.1 Hct 41.3 MCV 86.6 MCH 27.5 MCHC 31.7 L RDW 13.8 Plt Count 160 MPV 9.3 Immature Gran % (Auto) 0.5 Neut % (Auto) 40.3 L Lymph % (Auto) 42.0 [place] % (Auto) 14.7 H Eos % (Auto) 2.0 Baso % (Auto) 0.5 Lymph # (Auto) 1.85 [place] # (Auto) 0.7 H Eos # (Auto) 0.1 Baso # (Auto) 0.0 Abs Immat Gran (auto) 0.02 Absolute Neuts (auto) 1.8 Absolute Nucleated RBC 0.000 Nucleated RBC % 0.0 Sodium 134 L Potassium 3.5 Chloride 103 Carbon Dioxide 24 Anion Gap 7 BUN 7 Creatinine 0.92 Estim Creat Clear Calc 70 Estimated GFR > 60 Glucose 89 Calcium 9.2
[2025-09-24 14:00] VITALS: BP 92/54; PULSE 69; RESP 16; TEMP 36.6; O2SAT 100
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
[2025-09-24 18:42] VITALS: BP 117/75
[2025-09-24 20:22] VITALS: BP 121/75; PULSE 79; RESP 18; TEMP 37; O2SAT 97
[2025-09-24] MEDS: MORPHINE SULFATE (*CRX) 4 MG/ML INJ 2 MG IV PUSH (20:22)
[2025-09-24] MEDS: cefTRIAXone 1 GM in SODIUM CHLORIDE 0.9% IV 50 ML 100 ML IVPB (21:00)
[2025-09-25] MEDS: KETOROLAC 15 MG/ML VIAL (*BKC) IV PUSH ×4 (02:38→20:56)
[2025-09-25] MEDS: MORPHINE SULFATE (*CRX) 4 MG/ML INJ 2 MG IV PUSH ×3 (04:47→22:30)
[2025-09-25 05:52] VITALS: BP 108/66; PULSE 77; RESP 20; TEMP 36.7; O2SAT 100
[2025-09-25 06:21] LABS: Anion Gap 6 mmol/L (4-12); Blood Urea Nitrogen 9 mg/dL (7-17); Calcium 8.8 mg/dL (8.4-10.2); Carbon Dioxide 25 mmol/L (22-30); Chloride 102 mmol/L (98-107); Estimated CRCL calculation 79 ml/min; Estimated Glomerular Filt Rate > 60; Glucose 86 mg/dL (65-110); Potassium 3.7 mmol/L (3.4-5.0); Sodium 133 mmol/L (137-145)
--- NOTE | 2025-09-25 08:19 | WPDUROPN2 ---
Progress Note: A&P Assessment and Plan (1) Retained ureteral stent: Code(s): Z96.0 - Presence of urogenital implants Status: Acute (2) Urinary tract infection: Code(s): N39.0 - Urinary tract infection, site not specified Status: Acute Plan Left retained ureteral stent, UTI. Await sensitivities to transition to oral regimen Follow up for definitive stone treatment after antibiotic course Subjective Subjective Date/Time Seen: 09/25/25 08:19 Interval history: Ms. Tristan has a retained left ureteral stent, E coli UTI, sensitivities pending. She has moderate stent symptoms, feels minimally improved on antibiotics, no fever. Exam Const: General: comfortable and no acute distress HENMT: Mouth: Yes moist mucous membranes Eyes: General: appearance normal, both eyes and all related structures Resp: Effort & Inspection: normal respiratory effort Skin: General skin exam: normal color Neuro: Speech: normal speech Psych: Mental Status: mental status grossly normal Affect: normal affect Objective Data Vital Signs Vital Signs: Vital Signs - 24 hr 09/24/25 14:00 09/24/25 18:42 09/24/25 20:22 Temperature 36.6 C 37.0 C Pulse Rate 69 79 Respiratory Rate 16 18 Blood Pressure 92/54 L 117/75 121/75 Pulse Oximetry 100 97 Oxygen Delivery 09/24/25 20:55 09/25/25 05:52 Temperature 36.7 C Pulse Rate 77 Respiratory Rate 20 Blood Pressure 108/66 Pulse Oximetry 100 Oxygen Delivery Room Air Intake/Output Intake/Output: Intake & Output 09/22/25 09/23/25 09/24/25 09/25/25 23:59 23:59 23:59 23:59 Intake Total 1540 1900.0 1050 Output Total 100 6 Balance 1440 1900.0 1044 Meds/Results Medications: Active Medications Generic Name Dose Route Start Last Admin Trade Name Freq PRN Reason Stop Dose Admin Acetaminophen 650 mg 09/21/25 22:29 09/23/25 06:13 Acetaminophen 325 Mg Tablet PO 650 mg Q4H PRN Administration Mild Pain (1-3) or Fever Hydrocodone Bitart/Acetaminophen 1 tab 09/23/25 19:55 09/24/25 18:47 Hydrocodone/Acetaminophen (*Crx) 5-325 Mg Tablet PO 1 tab Q4H PRN Administration Pain Rated 4-6 Enoxaparin Sodium 40 mg 09/23/25 09:00 09/24/25 08:00 Enoxaparin 40 Mg/0.4 Ml Syringe SUB-Q [address] Administration Ceftriaxone Sodium 1 gm/ 50 mls @ 100 mls/hr 09/22/25 21:00 09/24/25 21:30 Sodium Chloride IVPB Infused Q24H RD Infusion Ketorolac Tromethamine 15 mg 09/23/25 20:00 09/25/25 02:38 Ketorolac 15 Mg/Ml Vial (*Bkc) IV PUSH [address] Administration Morphine Sulfate 2 mg 09/21/25 22:29 09/25/25 04:47 Morphine Sulfate (*Crx) 4 Mg/Ml Inj IV PUSH 2 mg Q2H PRN Administration Pain Rated 7-10 Ondansetron HCl 4 mg 09/21/25 22:29 09/24/25 07:59 Ondansetron Inj 4 Mg/2 Ml Vial IV PUSH 4 mg Q4H PRN Administration Nausea Radiology Results: ITS Impressions Chest X-Ray 09/21/25 19:04 IMPRESSION: 1. No acute findings. Abdomen/Pelvis CT 09/21/25 20:51 IMPRESSION: 1. Limited noncontrast CT scan, not optimal to evaluate solid viscera, neoplasms and vascular structures. 2. Left ureteric stent is noted in place. No calculi are noted. Moderate left hydronephrosis is noted. 3. Left kidney is atrophic with cortical scarring. Labs Labs: Laboratory Results - last 24 hr 09/25/25 04:40 Sodium 133 L Potassium 3.7 Chloride 102 Carbon Dioxide 25 Anion Gap 6 BUN 9 Creatinine 0.80 Estim Creat Clear Calc 79 Estimated GFR > 60 Glucose 86 Calcium 8.8
[2025-09-25] MEDS: ENOXAPARIN 40 MG/0.4 ML SYRINGE SUB-Q (08:55)
[2025-09-25] MEDS: HYDROcodone/acetaminophen (*CRX) 5-325 MG TABLET 1 TAB PO ×3 (11:47→20:55)
[2025-09-25 14:00] VITALS: BP 102/55; PULSE 60; RESP 18; TEMP 36.3; O2SAT 100
--- NOTE | 2025-09-25 14:29 | P.PNIM_ITS ---
Progress Note: A&P Assessment and Plan (1) Pyelonephritis: Code(s): N12 - Tubulo-interstitial nephritis, not specified as acute or chronic Status: Acute Assessment and Plan: - urine culture with E coli, awaiting sensitivities - BP soft, otherwise not meeting sepsis criteria. BP chronically runs low, asymptomatic. - previous urine culture with E coli, sensitive to cephalosporins, resistant to fluoroquinolones - continue IV Rocephin pending sensitivities - urology following (2) Retained ureteral stent: Code(s): Z96.0 - Presence of urogenital implants Status: Acute Assessment and Plan: - CT abdomen with left ureteric stent, moderate left hydronephrosis -continue IV Rocephin -urology consulted - no plans for surgical intervention while admitted. Recommended to continue IV antibiotics and plan for outpatient stent removal. (3) Hyponatremia: Code(s): E87.1 - Hypo-osmolality and hyponatremia Status: Acute Assessment and Plan: - sodium 132 - likely due to nausea/vomiting - continue IV fluids - repeat BMP in AM Plan DVT prophylaxis: Lovenox Code status: full code Dispo: home once urine culture resulted. Hopefully home tomorrow. Subjective Date/time seen: 09/25/25 14:29 Interval history: Patient in bed at time of examination. Denies any chest pain, shortness of breath nausea/vomiting. Does have some left lower abdominal discomfort radiating from her left lower flank, tolerable after Toradol. Sensitivities still pending for urine culture. Discharge pending the sensitivities. Review of Systems Review of Systems: All systems reviewed & are unremarkable except as noted in HPI and below Exam Narrative: General: NAD Eyes: EOMI ENT: neck supple Cardiovascular:regular rhythm Respiratory: Clear to auscultation, respirations even and unlabored on RA Gastrointestinal: Soft, non tender Genitourinary: no suprapubic tenderness Musculoskeletal: No edema Skin: warm, dry Neuro: Alert. Psych: Mood appropriate Objective Data Vital Signs Vital Signs: Vital Signs - 24 hr 09/24/25 18:42 09/24/25 20:22 09/24/25 20:55 Temperature 98.6 F Pulse Rate 79 Respiratory Rate 18 Blood Pressure 117/75 121/75 Pulse Oximetry 97 Oxygen Delivery Room Air 09/25/25 05:52 09/25/25 08:00 Temperature 98.1 F Pulse Rate 77 Respiratory Rate 20 Blood Pressure 108/66 Pulse Oximetry 100 Oxygen Delivery Room Air Intake/Output Intake/Output: Intake & Output 09/22/25 09/23/25 09/24/25 09/25/25 23:59 23:59 23:59 23:59 Intake Total 1540 1900.0 1050 480 Output Total 100 6 Balance 1440 1900.0 1044 480 Meds/Results Medications: Active Medications Generic Name Dose Route Start Last Admin Trade Name Freq PRN Reason Stop Dose Admin Acetaminophen 650 mg 09/21/25 22:29 09/23/25 06:13 Acetaminophen 325 Mg Tablet PO 650 mg Q4H PRN Administration Mild Pain (1-3) or Fever Hydrocodone Bitart/Acetaminophen 1 tab 09/23/25 19:55 09/25/25 11:47 Hydrocodone/Acetaminophen (*Crx) 5-325 Mg Tablet PO 1 tab Q4H PRN Administration Pain Rated 4-6 Enoxaparin Sodium 40 mg 09/23/25 09:00 09/25/25 08:55 Enoxaparin 40 Mg/0.4 Ml Syringe SUB-Q [address] Administration Ceftriaxone Sodium 1 gm/ 50 mls @ 100 mls/hr 09/22/25 21:00 09/24/25 21:30 Sodium Chloride IVPB Infused Q24H RD Infusion Ketorolac Tromethamine 15 mg 09/23/25 20:00 09/25/25 08:50 Ketorolac 15 Mg/Ml Vial (*Bkc) IV PUSH [address] Administration Morphine Sulfate 2 mg 09/21/25 22:29 09/25/25 04:47 Morphine Sulfate (*Crx) 4 Mg/Ml Inj IV PUSH 2 mg Q2H PRN Administration Pain Rated 7-10 Ondansetron HCl 4 mg 09/21/25 22:29 09/24/25 07:59 Ondansetron Inj 4 Mg/2 Ml Vial IV PUSH 4 mg Q4H PRN Administration Nausea Radiology Results: ITS Impressions Chest X-Ray 09/21/25 19:04 IMPRESSION: 1. No acute findings. Abdomen/Pelvis CT 09/21/25 20:51 IMPRESSION: 1. Limited noncontrast CT scan, not optimal to evaluate solid viscera, neoplasms and vascular structures. 2. Left ureteric stent is noted in place. No calculi are noted. Moderate left hydronephrosis is noted. 3. Left kidney is atrophic with cortical scarring. Labs Labs: Laboratory Results - last 24 hr 09/25/25 04:40 Sodium 133 L Potassium 3.7 Chloride 102 Carbon Dioxide 25 Anion Gap 6 BUN 9 Creatinine 0.80 Estim Creat Clear Calc 79 Estimated GFR > 60 Glucose 86 Calcium 8.8 Quality VTE Prophylaxis VTE prophylaxis: pharmacologic ordered
[2025-09-25 14:39] VITALS: PULSE 70; O2SAT 98
[2025-09-25 20:32] VITALS: BP 116/76; PULSE 71; RESP 18; TEMP 36.2; O2SAT 100
[2025-09-25] MEDS: cefTRIAXone 1 GM in SODIUM CHLORIDE 0.9% IV 50 ML 100 ML IVPB (20:57)
[2025-09-25] MEDS: ONDANSETRON INJ 4 MG/2 ML VIAL IV PUSH (21:08)
[2025-09-26] MEDS: KETOROLAC 15 MG/ML VIAL (*BKC) IV PUSH ×3 (02:08→14:18)
--- NOTE | 2025-09-26 02:30 | PC.NURSE ---
At 0225 called hospitalist, Cherry Elkins, to notify her that pt's urine culture has finalized with sensitivities. Asked provider if they wanted to change pt's antibiotics since cultures are finalized. Provider said they would take a look at the report.
[2025-09-26 05:29] VITALS: BP 104/61; PULSE 89; RESP 18; TEMP 37.8; O2SAT 99
[2025-09-26] MEDS: MORPHINE SULFATE (*CRX) 4 MG/ML INJ 2 MG IV PUSH ×2 (05:32→10:13)
[2025-09-26] MEDS: ONDANSETRON INJ 4 MG/2 ML VIAL IV PUSH (05:39)
[2025-09-26] MEDS: ENOXAPARIN 40 MG/0.4 ML SYRINGE SUB-Q (08:09)
--- NOTE | 2025-09-26 10:43 | WPDUROPN2 ---
Progress Note: A&P Assessment and Plan (1) Retained ureteral stent: Code(s): Z96.0 - Presence of urogenital implants Status: Acute Assessment and Plan: Emphasized need for definitive stone treatment after antibiotic course to decresae risks of infection-related complications and loss of renal function She specified she was moving to [place] after discharge, noted follow up with local MD (Dr. Coral Vela) who could refer her to a urologist for definitive treatment of her stones and retained ureteral stent. (2) Urinary tract infection: Code(s): N39.0 - Urinary tract infection, site not specified Status: Acute Assessment and Plan: Treat with 10-14 day course of culture-specific antibiotics for pyelonephritis Subjective Subjective Date/Time Seen: 09/26/25 10:43 Interval history: Retained ureteral stent, E coli UTI Exam Const: General: comfortable and no acute distress Eyes: General: appearance normal, both eyes and all related structures Resp: Effort & Inspection: normal respiratory effort GI: GI Palp: Yes Soft to palpation Other: Non tender, non distended : General: Yes bladder normal to palpation Other: No CVAT Neuro: Speech: normal speech Psych: Mental Status: mental status grossly normal Affect: normal affect Objective Data Vital Signs Vital Signs: Vital Signs - 24 hr 09/25/25 14:00 09/25/25 14:39 09/25/25 20:32 Temperature 36.3 C L 36.2 C L Pulse Rate 60 70 71 Respiratory Rate 18 18 Blood Pressure 102/55 L 116/76 Pulse Oximetry 100 98 100 Oxygen Delivery Room Air 09/25/25 20:45 09/26/25 05:29 Temperature 37.8 C H Pulse Rate 89 Respiratory Rate 18 Blood Pressure 104/61 Pulse Oximetry 99 Oxygen Delivery Room Air Intake/Output Intake/Output: Intake & Output 09/23/25 09/24/25 09/25/25 09/26/25 23:59 23:59 23:59 23:59 Intake Total 1900.0 1050 770 300 Output Total 6 Balance 1900.0 1044 770 300 Meds/Results Medications: Active Medications Generic Name Dose Route Start Last Admin Trade Name Freq PRN Reason Stop Dose Admin Acetaminophen 650 mg 09/21/25 22:29 09/23/25 06:13 Acetaminophen 325 Mg Tablet PO 650 mg Q4H PRN Administration Mild Pain (1-3) or Fever Hydrocodone Bitart/Acetaminophen 1 tab 09/23/25 19:55 09/25/25 20:55 Hydrocodone/Acetaminophen (*Crx) 5-325 Mg Tablet PO 1 tab Q4H PRN Administration Pain Rated 4-6 Enoxaparin Sodium 40 mg 09/23/25 09:00 09/26/25 08:09 Enoxaparin 40 Mg/0.4 Ml Syringe SUB-Q [address] Administration Ceftriaxone Sodium 1 gm/ 50 mls @ 100 mls/hr 09/22/25 21:00 09/25/25 21:27 Sodium Chloride IVPB Infused Q24H RD Infusion Ketorolac Tromethamine 15 mg 09/23/25 20:00 09/26/25 08:08 Ketorolac 15 Mg/Ml Vial (*Bkc) IV PUSH [address] Administration Morphine Sulfate 2 mg 09/21/25 22:29 09/26/25 10:13 Morphine Sulfate (*Crx) 4 Mg/Ml Inj IV PUSH 2 mg Q2H PRN Administration Pain Rated 7-10 Ondansetron HCl 4 mg 09/21/25 22:29 09/26/25 05:39 Ondansetron Inj 4 Mg/2 Ml Vial IV PUSH 4 mg Q4H PRN Administration Nausea Radiology Results: ITS Impressions Chest X-Ray 09/21/25 19:04 IMPRESSION: 1. No acute findings. Abdomen/Pelvis CT 09/21/25 20:51 IMPRESSION: 1. Limited noncontrast CT scan, not optimal to evaluate solid viscera, neoplasms and vascular structures. 2. Left ureteric stent is noted in place. No calculi are noted. Moderate left hydronephrosis is noted. 3. Left kidney is atrophic with cortical scarring.
[2025-09-26] MEDS: HYDROcodone/acetaminophen (*CRX) 5-325 MG TABLET 1 TAB PO (13:02)
[2025-09-26 14:00] VITALS: BP 104/71; PULSE 72; RESP 14; TEMP 36.7; O2SAT 100
--- NOTE | 2025-09-26 14:06 | P.DS_ITS ---
DS: Admitting Diagnosis Discharge Date 09/26/2025 Admitting Diagnosis Pyelonephritis, retained ureteral stent DS: Discharge Diagnosis Discharge Diagnosis (1) Pyelonephritis: Code(s): N12 - Tubulo-interstitial nephritis, not specified as acute or chronic Status: Acute (2) Retained ureteral stent: Code(s): Z96.0 - Presence of urogenital implants Status: Acute (3) Hyponatremia: Code(s): E87.1 - Hypo-osmolality and hyponatremia Status: Acute DS: Summary Hospital Course Reason for hospitalization: fever, chills, dysuria Hospital Course: Per HPI: Patient is a 34 yo female with PMH of UTIs, pyelonephritis who presents to the ER with complaints of fever, chills, cough, body aches, dysuria and urinary frequency. Patient is familiar to me, admitted 06/04-06/06/25 with with pyelonephritis and ureteral stone s/p ureteral stent placement. She was discharged and instructed to follow-up for stent removal which she did not do. Patient reports about 1 week ago she began experiencing fever, chills, nausea vomiting. She then developed dysuria and mild flank pain. Reports her temperature was as high as 103? F at home. Denies chest pain, shortness breast, cough sore throat, congestion. In ED, sodium 131, AST 37. UA with 3+ ketones, positive nitrates, 3+ LE, >100 WBC, 4+ bacteria. CT abdomen with left ureteric stent , moderate left hydronephrosis. Started on IV Rocephin and IV fluids. Hospital Course: The patient is a 34-year-old female with a history of recurrent urinary tract infections, prior pyelonephritis, and left ureteral stone status post stent placement in May 2025, who presented with fever, chills, dysuria, urinary frequency, and mild left flank pain. She had not followed up for stent removal as previously instructed. On admission, she was febrile at home (up to 103?F), with laboratory findings notable for hyponatremia (Na 131), mild transaminitis (AST 37), and urinalysis consistent with infection (positive nitrites, leukocyte esterase, >100 WBC, 4+ bacteria). Imaging revealed a retained left ureteral s tent, moderate left hydronephrosis, and an atrophic left kidney with cortical scarring. She was started on IV ceftriaxone and IV fluids, with urology consulted. Blood pressures were soft but she remained hemodynamically stable and did not meet sepsis criteria. Her hospital course was complicated by persistent hyponatremia, likely secondary to nausea and vomiting, which improved with IV fluids. She experienced mild leukopenia during admission but remained clinically stable. Urine culture grew E. coli, sensitive to cephalosporins and resistant to fluoroquinolones, and she completed a course of IV ceftriaxone. Urology recommended no inpatient intervention, with plans for outpatient stent removal and definitive stone management after completion of antibiotics. Will discharge the patient on Augmentin for 10 total days, to be taken twice daily. The patient was counseled extensively on the importance of follow-up to prevent further infection and renal damage, and she arranged to establish care with a new provider in [place] for ongoing urologic management. She remained afebrile, hemodynamically stable, and without signs of acute distress at discharge. Status at Discharge Functional status at discharge: independent ambulation Overall status at discharge: patient is back to baseline Time Spent with Patient Time attestation: Total time spent providing and/or coordinating discharge services: 28 Exam Narrative: General: NAD Eyes: EOMI ENT: neck supple Cardiovascular:regular rhythm Respiratory: Clear to auscultation, respirations even and unlabored on RA Gastrointestinal: Soft, non tender Genitourinary: no suprapubic tenderness Musculoskeletal: No edema Skin: warm, dry Neuro: Alert. Psych: Mood appropriate DS: Data Data Completed and Pending Labs on day of discharge: Preliminary micro results at discharge 09/21/25 21:45 Blood Culture - Preliminary Blood 09/21/25 21:41 Blood Culture - Preliminary Blood Discharge Plan Discharge Attending physician on discharge: Johnson Giron Oca Consulting providers: Candelaria Cornelius; Moo Ordaz; Marzena Solis; Nicholas Hamm Discharging Clinician: Nicholas Hamm Anticipated Discharge Date/Time: 09/26/25 10:36 Patient Disposition: Home Activity: as tolerated Diet: regular Discharge Instructions: Discharge disposition: Home Take medications as prescribed. You will be prescribed a 10 day course of Augmentin to be taken twice daily for the entire course. Monitor blood pressures Take caution while standing, rising, or moving Change positions slowly taking a break between each position change If you standing feel dizzy sit back down and take a break Encouraged to continue with yearly vaccinations Return to the emergency department if you develop sudden shortness of breath, chest pain, nausea, vomiting, upset stomach or intractable diarrhea Return to the emergency department if you develop fever greater than 101.5 Follow-up with the primary care physician within 1-2 weeks - you will need to make sure you follow up with Urology regarding removal of your stent when you arrive home in [place]. Thank you for choosing [facility] for your healthcare needs Patient Instructions: Antibiotic Form Patient Language: Nepali Stand Alone Forms: General Discharge Information Follow-up/Referrals: PHYSICIAN,VICE PRESIDENT OF SALES [Primary Care Provider, Internal Medicine] Discharge Medications: New amoxicillin-pot clavulanate 875-125 mg tablet 1 tablet PO Q12H Qty: 20 0RF hydrocodone-acetaminophen 5-325 mg tablet 1 tablet PO Q8H PRN (Reason: pain) 7 Days Qty: 20 0RF Discontinued tamsulosin [Flomax] 0.4 mg capsule 0.4 mg PO DAILY Qty: 30 0RF Date of admission: 09/23/25 17:24 Primary Care Provider: PHYSICIAN,VICE PRESIDENT OF SALES Admitting Provider: Gypsy Delong Attending physician on admission: Gypsy Delong Condition: Stable Quality VTE Prophylaxis VTE prophylaxis: pharmacologic ordered
--- NOTE | 2025-09-26 16:31 | PC.NURSE ---
Pt discharge medications finalized. [facility] called patient to notify that dose of [place] 5/300 mg is not formulary & would need to be specially formulated & would take an additional 2-3 to fill. I called Dr Anderson to let him know & he said he would cancel the nonformulary dose & order [place] 5/325. Patient confirmed with pharmacy that dose had been changed & they were getting the script filled before patient left at discharge.
== END 2025-09-26 16:30 | disposition home or self-care (01) | DRG 466 ==
LOC: ANHED 21:36 → ANH2MED 23:16
PROVIDERS: Physician Assistant; Admitting Provider Internal Medicine; Emergency Provider Emergency Medicine; Visit Provider Physician Assistant
DX: T83.592A Infection and inflammatory reaction due to indwelling ureteral stent, initial encounter (principal); N13.6 Pyonephrosis; B96.20 Unspecified Escherichia coli [E. coli] as the cause of diseases classified elsewhere; Z91.199 Patient's noncompliance with other medical treatment and regimen due to unspecified reason; Z96.0 Presence of urogenital implants; E87.1 Hypo-osmolality and hyponatremia; F17.290 Nicotine dependence, other tobacco product, uncomplicated; Z20.822 Contact with and (suspected) exposure to COVID-19; Z90.49 Acquired absence of other specified parts of digestive tract
CPT/HCPCS: 36415; 71046; 74176; 80048; 80053; 81001; 81025; 83605; 84145; 85025; 87040; 87086; 87186; 87637; 96361; 96365; 96367; 96375; 99285; A9270; G0378; J0696; J1650; J1885; J2270; J2405; J7030; J7120